=== PATIENT | female | born 1975 | race Caucasian/White ===

== ENCOUNTER 2019-12-14 10:54 | Inpatient (IN) | payer SELFPAY ==
[2019-12-14] VITALS (11 sets, daily range): BP systolic 101–123; BP diastolic 45–75; PULSE 76–111; RESP 12–20; TEMP 36.3–37.1; O2SAT 94–100
--- NOTE | ~2019-12-14 | XR_ITS ---
EXAMINATION: XR chest 1V portable DATE: 12/16/2019 18:48 INDICATION: Chest pain to the right of the sternum. TECHNIQUE: frontal view of the chest was obtained. COMPARISON: Chest radiograph dated 04/08/2019 FINDINGS: Calcite nodules in the right lower lung zone consistent with old granulomatous disease. Bandlike opac ity consistent with discoid atelectasis in the left lower lung zone. No pulmonary edema, pleural effu divya or pneumothorax. The cardiomediastinal silhouette is normal. Mild thoracic dextrocurvature. IMPRESSION: 1. Bandlike opacity in the left lower lung zone consistent with discoid atelectasis. Reviewed, dictated and finalized at location A. IMPRESSION: 1. Bandlike opacity in the left lower lung zone consistent with discoid atelect asis.
--- NOTE | 2019-12-14 11:51 | ED.WOUNDLAC ---
HPI - Wound/Laceration General Chief Complaint: Wound/Laceration Stated Complaint: abscess on breast Time Seen by Provider: 12/14/19 11:50 Source: patient Mode of arrival: EMS Limitations: no limitations History of Present Illness HPI narrative: Pt is a 44 y/o female who presents to the ED, via EMS, with c/o worsening pain to her rt breast abscess. She states that she was at [place] yesterday and she was Rx Clindamycin. Pt only had one dose of her Clindamycin this morning. She notes that her abscess has gotten bigger since 2 days ago. Pt took Aleve for her pain and she ate breakfast at 7AM this morning. She reports a subjective fever. Onset (ago): day(s) (2) Location: other (rt breast) Associated symptoms: other (subjective fever) Treatments prior to arrival: other (Aleve) Related Data Allergies Allergy/AdvReac Type Severity Reaction Status Date / Time bupropion Allergy Mild Agitated Verified 11/22/19 13:04 promethazine AdvReac Mild Agitated Verified 12/14/19 13:47 BUSPIRONE HCL Allergy Mild Agitated Uncoded 11/22/19 13:04 Review of Systems Review of Systems: All systems reviewed & are unremarkable except as noted in HPI and below Constitutional: Constitutional: Reports fever(s) (subjective) Integumentary/Breasts: Skin/Breast: Reports breast pain (rt breast abscess) PMFSH Past Medical History Medical History Anxiety Arthritis DM (diabetes mellitus) GERD (gastroesophageal reflux disease) H/O: HTN (hypertension) History of ovarian cyst IBS (irritable bowel syndrome) Surgical History Surgical History History of breast surgery History of dilation and curettage History of primary section x3 Social History Social History Smoking status: Current every day smoker Second hand tobacco smoke exposure: Yes Alcohol intake: never Gender identity (if verbalized by the patient): Female Exam Narrative: Exam Narrative: APPEARANCE: No acute distress, nontoxic, resting in bed EYES: EOMI HEENT: Normocephalic, atraumatic, OMM RESPIRATORY: No respiratory distress Clear to auscultation bilaterally with no rhonchi wheezing or rales. CARDIOVASCULAR: Regular rate and rhythm without murmurs rubs or gallops. ABDOMINAL: Soft, nontender, nondistended, no rebound or guarding MUSCULOSKELETAl: Moves all extremities. No clubbing, cyanosis or edema. NEURO: Awake and alert. Following commands, speech normal, no focal deficits SKIN:: Warm, dry. The right breast is diffusely swollen and erythematous around the area Lillian with firmness and fluctuance palpated no active drainage PSYCHIATRIC: Normal affect/mood, Course Course Emergency Course: Discussed with patient plan for OR in agreement at this time Consultations Consultation #1: Discussed case with Dr. Benson, the general surgeon. Will come to the ED and evaluate pt. Date: 12/14/19 Time: 12:15 Consultation #2: Discussed case with Dr. Benson the general surgeon. He saw pt in the ED bed. He will get pt to the OR today. Wants to start pt on Ancef 2g. Date: 12/14/19 Time: 13:39 Vital Signs Vital signs: Vital Signs Temperature 98.8 F 12/14/19 10:58 Pulse Rate 111 H 12/14/19 10:58 Respiratory Rate 18 12/14/19 10:58 Blood Pressure 114/61 12/14/19 10:58 Pulse Oximetry 100 12/14/19 10:58 Temperature 98.8 F 12/14/19 10:58 Pulse Rate 111 H 12/14/19 10:58 Respiratory Rate 18 12/14/19 10:58 Blood Pressure 114/61 12/14/19 10:58 Pulse Oximetry 100 12/14/19 10:58 MDM - Wound/Laceration Lab Data Result diagrams: 12/14/19 12:14 12/14/19 12:15 Labs: Lab Results 12/14/19 12/14/19 12/14/19 Range/Units 12:14 12:14 12:15 WBC 15.3 H (4.5-10.0) K/mm3 RBC 4.25 (4.2-5.4) M/mm3 Hgb 13.2 (12.0-15.0) g/dL Hct 38.7 (37.0-47.0) % MCV 91.1 (80-100) fl
[2019-12-14 12:21] LABS: Hematocrit 38.7 % (37.0-47.0); Hemoglobin 13.2 g/dL (12.0-15.0); Mean Corpuscular HGB Conc 34.1 g/dl (32-36); Mean Corpuscular Hemoglobin 31.1 pg (26-34); Mean Corpuscular Volume 91.1 fl (80-100); Mean Platelet Volume 9.6 fl (7.4-10.4); Platelet Count Result 334 k/mm3 (150-375); Red Blood Count 4.25 M/mm3 (4.2-5.4); Red Cell Distribution Width 12.4 % (11.5-14.5); White Blood Count 15.3 K/mm3 (4.5-10.0)
[2019-12-14 12:31] LABS: INR 0.9; Prothrombin Time 11.5 Seconds (11.1-14.7)
[2019-12-14] MEDS: LACTATED RINGERS 1,000 ML 999 ML IV CONT (12:31)
[2019-12-14 12:32] LABS: Partial Thromboplastin Time 30.2 SECONDS (22.3-36.8)
[2019-12-14 12:34] LABS: Alanine Aminotransferase 21 U/L (4-35); Albumin Level 4.3 g/dL (3.5-5.1); Alkaline Phosphatase 129 U/L (38-126); Aspartate Amino Transferase 26 U/L (14-36); Bilirubin,Total 0.2 mg/dL (0.2-1.3); Blood Urea Nitrogen 13 mg/dL (7-17); Calcium 9.5 mg/dL (8.4-10.2); Carbon Dioxide 22 mmol/L (22-30); Chloride 102 mmol/L (98-107); Estimated CRCL calculation 120 ml/min; Estimated Glomerular Filt Rate > 60; Glucose 86 mg/dL (65-105); Potassium 4.2 mmol/L (3.4-5.0); Sodium 135 mmol/L (137-145)
[2019-12-14 12:54] LABS: Atypical Lymphocytes Present; Basophils Absolute Manual 0.15 K/mm3 (0.0-0.1); Basophils Percent Manual 1 % (0-1); Eosinophils Percent Manual 2 % (0-4); Lymphocytes Absolute Manual 3.97 K/mm3 (1.1-4.5); Monocytes Absolute Manual 0.91 K/mm3 (0.1-0.90); Monocytes Percent Manual 6 % (3-9); Neutrophils Percent Manual 65 % (46-73); Platelet Estimate Adequate (Adequate); Total Cells Counted 100
[2019-12-14] MEDS: MORPHINE SULFATE 4 MG/ML INJ IV PUSH (12:54)
--- NOTE | 2019-12-14 14:20 | PM.IMHP ---
H&P: HPI History of Present Illness Chief complaint: abscess on breast Narrative: Nuzhat Pettit is a 44 year old female with a history of hypertension, Gerd, IBS, anxiety, and tobacco abuse, who presented to the ER for the second time in the past month for right breast pain. The patient reports having a right breast abscess just under a year ago and was under the care of Dr. Ortega as an outpatient until about 4-5 months ago. She reports first developing an abscess in the summer. She ultimately had an ultrasound-guided aspiration of the right breast abscess in June of 2019 here at [facility] radiology department. The patient then started to follow Dr. Ortega as an outpatient. She reports that she was scheduled for more follow-up about 4-5 months ago but was non-compliant due to insurance issues. She states that after the aspiration her breast spontaneously drained at home and started to improve after that. She then only noticed a lump in the right breast but the redness and pain was eliminated. This is how her breast has seemed up until about 3 weeks ago. She started having a fever, chills, nausea, and vomiting. She felt that her left breast was more swollen but did not have significant redness. She reports presenting to the ER about 3 weeks ago for evaluation of right breats pain and swelling. At that time, an ultrasound was performed of the right breast and showed a subareolar fluid collection of the right breast corresponding to the area of right breast pain which could reflect seroma or possibly uncomplicated abscess. BI-RADS category 2 finding. At that time, her WBC count was 13,000. Dr. Ortega was notified by the ED physician and she was sent home on 7 days of oral cephalexin and instructed to follow-up in the office with Dr. Ortega. The patient did not make the follow-up appointment again due to insurance. She then presented to [place] ER yesterday and it was recommended to her to go to a facility with a breast or general surgeon who could manage the breast, she refused at that time and was sent home with oral clindamycin and recommendations. Today, she states that the pain has worsened and is now severe in her right breast. She still feels she is having fevers and chills, and decided to present to the [facility] ED for further evaluation. Labs revealed a WBC count of 15,000 today and she is tachycardic. No documented fever but the patient states she has been taking Tylenol around the clock for a subjective fever. Denies taking her temperature at home. Our service was contacted for surgical evaluation of the right breast abscess. I am now seeing the patient in the ED. She reports pain at a 7/10 in the right breast after receiving pain medication. She denies nausea at this time. Reports having subjective fevers off and on for weeks. She reports stopping her antibiotic given to her from the ER in November due to intolerance with nausea and vomiting. She did take one dose of the clindamycin this morning. No other complaints at this time. Review of Systems Constitutional: Constitutional: Reports as per HPI, Reports chills, Denies excessive sweating, Denies fatigue, Reports fever(s) and Denies weakness Eyes: Eyes: Denies change in vision and Denies loss of vision ENT: Denies dysphagia, Denies dizziness, Denies dry mouth, Denies hearing loss and Denies lip swelling Cardiovascular: Cardiovascular: Denies chest pain, Denies syncope, Denies radiating jaw, neck or arm pain, Denies dyspnea and Denies dyspnea on exertion Respiratory: Respiratory: Denies cough, Denies dyspnea, Denies dyspnea on exertion and Denies wheezing Gastrointestinal: Gastrointestinal: Denies abdominal pain, Denies bloating, Denies change in bowel habits, Denies dysphagia, Denies diarrhea, Reports nausea (subsided) and Reports vomiting (subsided) Musculoskeletal: Musculoskeletal: Denies abnormal gait, Denies myalgias, Denies deformity, Denies joint swelling and Denies tingling Integumenta
--- NOTE | 2019-12-14 14:38 | WPDANESEPPF ---
Anes - Initial Pre Proc Eval Procedure: Operation Date: 12/14/19 15:00 Proposed Procedures p INCISION AND DRAINAGE RIGHT BREAST ABSCESS - Marcus Benson DO Date/Time: 12/14/19 14:38 Surgeon: Marcus Benson DO Pre Op Diagnosis: abscess on breast Patient Data Age: 44 Gender: F Height: 5 ft 7 in Weight: 95.2 kg Last Vital Signs Temp 37.1 C 12/14/19 10:58 Pulse 95 12/14/19 14:16 Resp 20 12/14/19 14:16 BP 123/75 12/14/19 14:16 Pulse Ox 100 12/14/19 14:16 Allergies Allergy/AdvReac Type Severity Reaction Status Date / Time bupropion Allergy Mild Agitated Verified 11/22/19 13:04 promethazine AdvReac Mild Agitated Verified 12/14/19 13:47 BUSPIRONE HCL Allergy Mild Agitated Uncoded 11/22/19 13:04 Home Medications Medication Instructions Recorded Confirmed Type cephalexin [Keflex] 500 mg PO QID #28 cap 11/22/19 Rx lisinopril-hydrochlorothiazide 1 tablet PO DAILY #30 tablet 11/22/19 Rx [Zestoretic] Laboratory Tests 12/14/19 12/14/19 12/14/19 12:14 12:14 12:15 WBC 15.3 K/mm3 H K/mm3 (4.5-10.0) RBC 4.25 M/mm3 M/mm3 (4.2-5.4) Hgb 13.2 g/dL g/dL (12.0-15.0) Hct 38.7 % % (37.0-47.0) MCV 91.1 fl fl (80-100) MCH 31.1 pg pg (26-34) MCHC 34.1 g/dl g/dl (32-36) RDW 12.4 % % (11.5-14.5) Plt Count 334 k/mm3 k/mm3 (150-375) MPV 9.6 fl fl (7.4-10.4) Immature Gran % (Auto) Not Reportable Neut % (Auto) Not Reportable Lymph % (Auto) Not Reportable Petroleum % (Auto) Not Reportable Eos % (Auto) Not Reportable Baso % (Auto) Not Reportable Lymph # (Auto) Not Reportable Petroleum # (Auto) Not Reportable Eos # (Auto) Not Reportable Baso # (Auto) Not Reportable Abs Immat Gran (auto) Not Reportable Absolute Neuts (auto) Not Reportable Absolute Nucleated RBC Not Reportable Total Counted 100 Neutrophils % (Manual) 65 % % (46-73) Lymphocytes % (Manual) 26.0 % % (18-44) Monocytes % (Manual) 6 % % (3-9) Eosinophils % (Manual) 2 % % (0-4) Basophils % (Manual) 1 % % (0-1) Nucleated RBC % Not Reportable Abs Lymphs (Manual) 3.97 K/mm3 K/mm3 (1.1-4.5) Abs Monocytes (Manual) 0.91 K/mm3 H K/mm3 (0.1-0.90) Absolute Eos (Manual) 0.30 K/mm3 K/mm3 (0.02-0.5) Abs Basophils (Manual) 0.15 K/mm3 H K/mm3 (0.0-0.1) Atypical Lymphocytes Present Platelet Estimate Adequate (Adequate) PT 11.5 Seconds Seconds (11.1-14.7) INR 0.9 APTT 30.2 SECONDS SECONDS (22.3-36.8) Sodium Potassium Chloride Carbon Dioxide BUN Creatinine Estim Creat Clear Calc Estimated GFR Glucose Lactic Acid 1.0 mmol/L mmol/L (0.7-2.1) Calcium Total Bilirubin AST ALT Alkaline Phosphatase Total Protein Albumin 12/14/19 12:15 WBC RBC Hgb Hct MCV MCH MCHC RDW Plt Count MPV Immature Gran % (Auto) Neut % (Auto) Lymph % (Auto) Petroleum % (Auto) Eos % (Auto) Baso % (Auto) Lymph # (Auto) Petroleum # (Auto) Eos # (Auto) Baso # (Auto) Abs Immat Gran (auto) Absolute Neuts (auto) Absolute Nucleated RBC Total Counted Neutrophils % (Manual) Lymphocytes % (Manual) Monocytes % (Manual) Eosinophils % (Manual) Basophils % (Manual) Nucleated RBC % Abs Lymphs (Manual) Abs Monocytes (Manual) Absolute Eos (Manual
[2019-12-14] MEDS: LACTATED RINGERS 1,000 ML 30 ML IV CONT ×2 (14:45→15:27)
[2019-12-14] MEDS: ceFAZolin 2 GM/D5W 50 ML 2 GM/50 ML BAG IVPB (14:54)
--- NOTE | 2019-12-14 15:31 | PM.PROC ---
Procedure Note - Detailed Date of procedure: 12/14/19 Pre-op diagnosis: right breast abscess Post-op diagnosis: same Procedure performed: 1. I&D right breast abscess 2. Right breast incisional biopsy Description of procedure: Procedure as well as risks, benefits, and alternatives were discussed with the patient. Written consent was obtained and placed in chart prior to procedure. Patient was brought back to surgical suite. She was placed supine on operating table. Time-out done to confirm patient and procedure. She was then intubated by the Anesthesia Department. Her right breast area was prepped and draped in sterile fashion using chlorhexidine prep. 0.5% bupivacaine with epinephrine was infiltrated locally around the area of fluctuance. A 3 cm curvilinear incision was made at the outer edge of the nipple areola complex in the right upper inner quadrant. The incision was carried down to the area of fluctuance. Purulence fluid was drained. A culture swab was taken for aerobic and anaerobic culture and sensitivity. The purulence fluid was completely drained and then the abscess cavity was probed for any loculations. The breast tissue along the abscess cavity was then biopsied using a pickup and curved Metzenbaum scissors. After taking several samples of tissue along the abscess wall, the cavity was then further inspected. Hemostasis appeared adequate and there was no further loculations or other abnormalities. The abscess cavity was then irrigated with sterile saline. Half-inch iodoform gauze was then packed within the abscess cavity. Fluffed gauze, ABD pad, and tape were then applied. The patient was then awakened from anesthesia, extubated, and transferred to recovery. Anesthesia: GETA and local ( 0.5% bupivacaine with epinephrine) Surgeon: Marcus Benson DO Estimated blood loss (mL): 5 Drains: No Packing: Yes ( 1/2 inch iodoform gauze) Pathology: yes ( right breast biopsy upper inner quadrant) Complications: No immediate complications Condition: stable Disposition: floor Findings: this is a 44-year-old woman who presented to the emergency department today with pain and swelling to the inner portion of her right breast over the past couple weeks. She has also been experiencing fevers. On exam she was found to have an area abscess and cellulitis along the upper inner quadrant of her right breast. Discussions were made with the patient about treatment options, and decision was made to proceed with urgent incision and drainage of the breast abscess. Incision and drainage of the right breast abscess was performed. The area of fluctuance appeared to be predominantly in the medial subareolar right breast area. A curvilinear incision was made at the outer edge of the nipple areola complex in the right upper outer quadrant. Approximately 6 oz of purulence fluid was drained from this area. Cultures were taken for aerobic and anaerobic culture and sensitivity. I then performed incisional biopsies of the surrounding breast tissue along the abscess wall to assess for any potential for malignancy. The abscess was then packed with half-inch iodoform gauze.
[2019-12-14] MEDS: BUPIVACAINE/EPINEPHRINE 0.5% 10 ML VIAL INFILTRATE (15:54)
--- NOTE | 2019-12-14 16:07 | SUR.PHASEI ---
1600 - no family available at this time for update
[2019-12-14] MEDS: IBUPROFEN 600 MG TABLET PO (21:30)
[2019-12-15 02:00] VITALS: BP 102/53; PULSE 87; RESP 18; TEMP 36.8; O2SAT 94
[2019-12-15 05:51] VITALS: BP 108/59; PULSE 82; RESP 18; TEMP 36.6; O2SAT 95
[2019-12-15 06:22] LABS: Hematocrit 39.2 % (37.0-47.0); Mean Corpuscular HGB Conc 33.2 g/dl (32-36); Mean Corpuscular Hemoglobin 30.7 pg (26-34); Mean Corpuscular Volume 92.5 fl (80-100); Platelet Count Result 356 k/mm3 (150-375); Red Blood Count 4.24 M/mm3 (4.2-5.4); Red Cell Distribution Width 12.4 % (11.5-14.5); White Blood Count 18.4 K/mm3 (4.5-10.0)
--- NOTE | 2019-12-15 07:52 | WPDANESPN ---
Anes - Prog Note Post-Op Date/Time: 12/15/19 07:52 Cardiovascular status: normal Respiratory status: normal Airway patency: baseline Mental status: baseline Post-Op hydration status: normal Vital Signs: Last Vital Signs Temp 36.6 C 12/15/19 05:51 Pulse 82 12/15/19 05:51 Resp 18 12/15/19 05:51 BP 108/59 L 12/15/19 05:51 Pulse Ox 95 12/15/19 05:51 I/O: Intake & Output 12/14/19 12/14/19 12/15/19 15:59 23:59 07:59 Intake Total 1050 890 550 Output Total 500 Balance 1050 890 50 Laboratory Tests 12/15/19 05:47 12/14/19 12:15 12/14/19 12/14/19 12/14/19 12:14 12:14 12:15 WBC 15.3 H RBC 4.25 Hgb 13.2 Hct 38.7 MCV 91.1 MCH 31.1 MCHC 34.1 RDW 12.4 Plt Count 334 MPV 9.6 Immature Gran % (Auto) Not Reportable Neut % (Auto) Not Reportable Lymph % (Auto) Not Reportable Thomas % (Auto) Not Reportable Eos % (Auto) Not Reportable Baso % (Auto) Not Reportable Lymph # (Auto) Not Reportable Thomas # (Auto) Not Reportable Eos # (Auto) Not Reportable Baso # (Auto) Not Reportable Abs Immat Gran (auto) Not Reportable Absolute Neuts (auto) Not Reportable Absolute Nucleated RBC Not Reportable Total Counted 100 Neutrophils % (Manual) 65 Lymphocytes % (Manual) 26.0 Monocytes % (Manual) 6 Eosinophils % (Manual) 2 Basophils % (Manual) 1 Nucleated RBC % Not Reportable Abs Lymphs (Manual) 3.97 Abs Monocytes (Manual) 0.91 H Absolute Eos (Manual) 0.30 Abs Basophils (Manual) 0.15 H Atypical Lymphocytes Present Platelet Estimate Adequate PT 11.5 INR 0.9 APTT 30.2 Sodium Potassium Chloride Carbon Dioxide BUN Creatinine Estim Creat Clear Calc Estimated GFR Glucose Lactic Acid 1.0 Calcium Total Bilirubin AST ALT Alkaline Phosphatase Total Protein Albumin 12/14/19 12/15/19 12:15 05:47 WBC 18.4 H RBC 4.24 Hgb 13.0 Hct 39.2 MCV 92.5 MCH 30.7 MCHC 33.2 RDW 12.4 Plt Count 356 MPV 10.0 Immature Gran % (Auto) Neut % (Auto) Lymph % (Auto) Thomas % (Auto) Eos % (Auto) Baso % (Auto) Lymph # (Auto) Thomas # (Auto) Eos # (Auto) Baso # (Auto) Abs Immat Gran (auto) Absolute Neuts (auto) Absolute Nucleated RBC Total Counted Neutrophils % (Manual) Lymphocytes % (Manual) Monocytes % (Manual) Eosinophils % (Manual) Basophils % (Manual) Nucleated RBC % Abs Lymphs (Manual) Abs Monocytes (Manual) Absolute Eos (Manual) Abs Basophils (Manual) Atypical Lymphocytes Platelet Estimate PT INR APTT Sodium 135 L Potassium 4.2 Chloride 102 Carbon Dioxide 22 BUN 13 Creatinine 0.60 L Estim Creat Clear Calc 120 Estimated GFR > 60 Glucose 86 Lactic Acid Calcium 9.5 Total Bilirubin 0.2 AST 26 ALT 21 Alkaline Phosphatase 129 H Total Protein 8.0 Albumin 4.3 Post-procedural complaints: none Patient Feedback: Patient satisfied with anesthetic care.
[2019-12-15] MEDS: hydroCHLOROthiazide 12.5 MG CAPSULE PO (08:25)
[2019-12-15] MEDS: lisinopriL 20 MG TABLET PO (08:25)
[2019-12-15 09:00] VITALS: BP 105/41; PULSE 81; RESP 18; TEMP 36.6; O2SAT 99
--- NOTE | 2019-12-15 12:03 | PM.PNGS ---
Progress Note: A&P Assessment and Plan (1) Abscess of breast, right: Code(s): N61.1 - Abscess of the breast and nipple Status: Acute Assessment and Plan: Patient doing well POD#1 but still having a lot of pain. Did require IV pain medication for dressing change today. Will keep patient today for pain control and hopefully discharge tomorrow if doing well. She will need daily dressing changes when going home and does not feel that she can do them herself. She is going to contact her mother and [id number] to see if either would be willing to help her with wound care daily on discharge. Continue IV antibiotics. Abscess cultures pending. Pathology from biopsy pending. (2) H/O: HTN (hypertension): Code(s): Z86.79 - Personal history of other diseases of the circulatory system Status: Acute (3) Tobacco abuse: Code(s): Z72.0 - Tobacco use Status: Acute Subjective Subjective Date/Time Seen: 12/15/19 11:45 Post Op day: 1 (I&D right breast abscess; right breast incisional biopsy) Patient reports: still having pain and tolerating a regular diet Interval history: Patient seen and examined. Reports right breast pain at a 7/10 and received oral pain medication about an hour ago. No other complaints. WBC 18,000 today. Afebrile. Review of Systems Review of Systems: All systems reviewed & are unremarkable except as noted in HPI and below Exam Const: General: no acute distress, alert and awake Nutritional Appearance: well nourished Orientation/consciousness: patient oriented x3 Skin: Other: Right breast abscess looks good today with improvement in overall erythema and induration. Packing changed with 1 iodoform packing. No purulent drainage noted. Neuro: General: moves all extremities Psych: Mental Status: mental status grossly normal Attitude: cooperative Objective Data Vital Signs Vital Signs: Vital Signs - 24 hr 12/14/19 14:16 12/14/19 14:47 12/14/19 15:27 Temperature 36.4 C 36.3 C L Pulse Rate 95 82 106 H Respiratory Rate 20 20 16 Blood Pressure 123/75 117/63 122/69 Pulse Oximetry 100 100 100 12/14/19 15:40 12/14/19 15:55 12/14/19 16:10 Temperature Pulse Rate 80 83 79 Respiratory Rate 12 12 12 Blood Pressure 106/53 L 111/54 L 101/54 L Pulse Oximetry 99 98 97 12/14/19 16:14 12/14/19 16:29 12/14/19 17:00 Temperature 36.7 C 36.7 C 36.7 C Pulse Rate 77 76 81 Respiratory Rate 16 16 18 Blood Pressure 110/58 L 109/45 L 110/56 L Pulse Oximetry 100 99 98 12/14/19 22:00 12/15/19 02:00 12/15/19 05:51 Temperature 36.8 C 36.8 C 36.6 C Pulse Rate 86 87 82 Respiratory Rate 16 18 18 Blood Pressure 104/51 L 102/53 L 108/59 L Pulse Oximetry 94 94 95 Intake/Output Intake/Output: Intake & Output 12/12/19 12/13/19 12/14/19 12/15/19 23:59 23:59 23:59 23:59 Intake Total 1940 550 Output Total 500 Balance 1940 50 Meds/Results Medications: Active Medications Generic Name Dose Route Start Last Admin Trade Name Freq PRN Reason Stop Dose Admin Hydrocodone Bitart/Acetaminophen 1 tab 12/14/19 16:14 Con[place]us 7.5-325 Mg PO Q4H PRN Pain Rated 7-10 Hydrocodone Bitart/Acetaminophen 1 tab 12/14/19 16:14 12/15/19 09:40 [place]us 5-325 Mg PO 1 tab Q4H PRN Administration Pain Rated 4-6 Hydrochlorothiazide 12.5 mg 12/15/19 09:00 12/15/19 08:25 Hydrochlorothiazide PO 12.5 mg QAM CARLITA Administration Hydromorphone HCl 0.5 mg 12/14/19 16:14 Dilaudid Inj IV PUSH Q2H PRN Pain Rated 4-6 Hydromorphone HCl 1 mg 12/14/19 16:14 Dilaudid Inj IV PUSH Q2H PRN Pain Rated 7-10 Cefazolin Sodium 1 gm in 50 mls @ 100 mls/hr 12/14/19 22:00 12/15/19 06:10 Ancef 1 Gm/D5w 50 Ml Pm IVPB Infused Q8HR CARLITA Infusion Ibuprofen 600 mg 12/14/19 21:21 12/14/19 21:30 Motrin PO 600 mg Q6H PRN Administration Pain Rated 1-3 Lisinopril 20 mg 12/15/19 09:00 12/15/19 08:25 Prinivil PO 20
[2019-12-15] MEDS: HYDROMORPHONE HCL 1 MG/ML INJ IV PUSH (12:07)
[2019-12-15 14:00] VITALS: BP 104/55; PULSE 85; RESP 18; O2SAT 98
[2019-12-15 15:27] VITALS: BMI 32.8
[2019-12-15] MEDS: IBUPROFEN 600 MG TABLET PO (20:09)
[2019-12-15 21:59] VITALS: BP 112/41; PULSE 66; RESP 16; TEMP 36.9; O2SAT 98
[2019-12-16] MEDS: IBUPROFEN 600 MG TABLET PO ×2 (02:09→20:39)
[2019-12-16 06:00] VITALS: BP 108/46; PULSE 80; RESP 18; TEMP 36.5; O2SAT 96
[2019-12-16 06:25] LABS: Hematocrit 38.9 % (37.0-47.0); Hemoglobin 12.8 g/dL (12.0-15.0); Mean Corpuscular HGB Conc 32.9 g/dl (32-36); Mean Corpuscular Hemoglobin 30.7 pg (26-34); Mean Corpuscular Volume 93.3 fl (80-100); Mean Platelet Volume 9.9 fl (7.4-10.4); Platelet Count Result 304 k/mm3 (150-375); Red Blood Count 4.17 M/mm3 (4.2-5.4); Red Cell Distribution Width 12.7 % (11.5-14.5); White Blood Count 12.3 K/mm3 (4.5-10.0)
[2019-12-16] MEDS: lisinopriL 20 MG TABLET PO (08:20)
[2019-12-16] MEDS: hydroCHLOROthiazide 12.5 MG CAPSULE PO (08:20)
--- NOTE | 2019-12-16 08:21 | PC.NURSE ---
Patient does not want the flu shot
--- NOTE | 2019-12-16 13:05 | PM.PNGS ---
Progress Note: A&P Assessment and Plan (1) Abscess of breast, right: Code(s): N61.1 - Abscess of the breast and nipple Status: Acute Assessment and Plan: Patient doing well POD#2. Still working on pain control, specifically at dressing changes. Awaiting final abscess culture results. Continue IV antibiotics for today. Pathology from right breast biopsy shows benign mammary tissue with fat necrosis and abscess, negative for malignancy. Pathology was discussed in detail with the patient. The patient's mom agreed to have her stay at her house for a few days after discharge and help with dressing changes. Will keep the patient overnight and continue IV antibiotics, await culture results, and work on pain control. (2) H/O: HTN (hypertension): Code(s): Z86.79 - Personal history of other diseases of the circulatory system Status: Acute (3) Tobacco abuse: Code(s): Z72.0 - Tobacco use Status: Acute Subjective Subjective Date/Time Seen: 12/16/19 12:05 Post Op day: 2 (I&D right breast abscess; right breast incisional biopsy) Patient reports: no new complaints, still having pain and tolerating a regular diet Interval history: Patient seen and examined. Reports pain is about the same as yesterday and still requiring oral narcotics throughout the day and IV pain medication for dressing changes. Tolerating a diet. Reports the pain is still localized on the right side of her chest and right breast. Denies any other complaints at this time. Preliminary results of the abscess culture shows growth of peptostreptococcus species. Blood cultures NGTD. Patient remains afebrile. Right breast biopsy pathology showed benign mammary tissue with fat necrosis and abscess, negative for malignancy. Review of Systems Review of Systems: All systems reviewed & are unremarkable except as noted in HPI and below Constitutional: Constitutional: Denies chills and Denies fever(s) Gastrointestinal: Gastrointestinal: Reports no additional gastrointestinal complaints, Denies bloating, Denies nausea and Denies vomiting Exam Const: General: comfortable, no acute distress, alert and awake Skin: General skin exam: normal color Rashes: no rashes Other: Right breast abscess healing as expected with decrease in overall induration and no remaining erythema. Packing changed with 1 iodoform packing. No purulent drainage noted. Extrem: General: normal to inspection, full ROM and no edema Psych: Affect: normal affect Attitude: cooperative Thought process: Normal thought process present Objective Data Vital Signs Vital Signs: Vital Signs - 24 hr 12/15/19 14:00 12/15/19 21:59 12/16/19 06:00 Temperature 36.9 C 36.5 C Pulse Rate 85 66 80 Respiratory Rate 18 16 18 Blood Pressure 104/55 L 112/41 L 108/46 L Pulse Oximetry 98 98 96 Intake/Output Intake/Output: Intake & Output 12/13/19 12/14/19 12/15/19 12/16/19 23:59 23:59 23:59 23:59 Intake Total 1940 1290 1100 Output Total 1000 400 Balance 1940 290 700 Meds/Results Medications: Active Medications Generic Name Dose Route Start Last Admin Trade Name Freq PRN Reason Stop Dose Admin Hydrocodone Bitart/Acetaminophen 1 tab 12/14/19 16:14 [place] 7.5-325 Mg PO Q4H PRN Pain Rated 7-10 Hydrocodone Bitart/Acetaminophen 1 tab 12/14/19 16:14 12/16/19 09:49 [place] 5-325 Mg PO 1 tab Q4H PRN Administration Pain Rated 4-6 Hydrochlorothiazide 12.5 mg 12/15/19 09:00 12/16/19 08:20 Hydrochlorothiazide PO 12.5 mg QAM CARLITA Administration Hydromorphone HCl 0.5 mg 12/14/19 16:14 Dilaudid Inj IV PUSH Q2H PRN Pain Rated 4-6 Hydromorphone HCl 1 mg 12/14/19 16:14 12/15/19 12:07 Dilaudid Inj IV PUSH 1 mg Q2H PRN Administration Pain Rated 7-10 Cefazolin Sodium 1 gm in 50 mls @ 100 mls/hr 12/14/19 22:00 12/16/19 06:35 Ancef 1 Gm/D5w 50 Ml Pm IVPB Infused Q8HR CARLITA Infusion Ibuprofen
[2019-12-16] MEDS: HYDROMORPHONE HCL 1 MG/ML INJ IV PUSH (13:29)
[2019-12-16 14:29] VITALS: BP 110/61; PULSE 73; RESP 18; TEMP 36.2; O2SAT 96
--- NOTE | 2019-12-16 18:35 | ECG_ITS ---
Measurements Intervals [place] Rate: 69 P: 28 DC: 172 QRS: 31 QRSD: 93 T: 44 QT: 375 QTc: 404 Interpretive Statements SINUS RHYTHM BASELINE ARTIFACT- V5 NORMAL ECG Electronically Signed On 12-16-2019 19:48:57 ALUMINUM POOL INSTALLER by [place] Marcus D.O.
[2019-12-16 18:42] VITALS: BP 99/53; PULSE 68; RESP 23; TEMP 36.7; O2SAT 98
[2019-12-16 19:10] LABS: Alveolar/Arterial O2 Gradient 26.5 mmHg; Base Excess ABG 0.2 mEq/l (+/-2.0); Carboxyhemoglobin 0.7 % THb (0-2.0); Fractional Inspired Oxygen 21 %; HCO3 ABG 24.1 mEq/l (22.0-26.0); Methemoglobin ABG 0.3 %THb (0-1.5); Oxygen Content ABG 18.2 %vol (16.0-22.0); Oxygen Saturation ABG 96.1 % (95.0-100.0); Oxyhemoglobin 94.5 % THb (90.0-100.0); PCO2 ABG 36.7 mmHg (35.0-45.0); PO2 ABG 79.3 mmHg (80.0-100.0); PO2 FiO2 Ratio Arterial Blood 3.78 %; Reduced Hemoglobin 4.5 %THb (0-5.0); Site Drawn RIGHT RADIAL; Total Hemoglobin 13.7 g/dL (12.0-18.0); pH ABG 7.435 (7.350-7.450)
[2019-12-16 19:11] LABS: Device ROOM AIR; Modified Allen's Test Pass
[2019-12-16 19:21] LABS: Troponin I < 0.012 ng/mL (0.000-0.034)
[2019-12-16 20:00] VITALS: PULSE 71
[2019-12-16 20:03] VITALS: BP 96/52; PULSE 69; RESP 18; TEMP 36.7; O2SAT 95
[2019-12-16 21:53] VITALS: BP 104/48; PULSE 67; RESP 16; TEMP 36.7; O2SAT 99
[2019-12-17] VITALS: PULSE 75
--- NOTE | 2019-12-17 02:28 | PM.IMCN ---
Assessment and Plan Assessment and plan (1) Chest pain: Code(s): R07.9 - Chest pain, unspecified Status: Acute Assessment and Plan: Chest pain does not seem to be cardiac in origin and is now resolved. Likely musculoskeletal. EKG was unremarkable. Initial troponin was negative. We will monitor for any further chest pain and treat w/ nitroglycerin as needed. Telemetry. Check troponin in am. Consider Cardiology consultation if the patient's troponin rises or if she develops any further chest pain. (2) Abscess of breast, right: Code(s): N61.1 - Abscess of the breast and nipple Status: Acute Assessment and Plan: Currently on Ancef IV. Continue general surgery recommendations. (3) H/O: HTN (hypertension): Code(s): Z86.79 - Personal history of other diseases of the circulatory system Status: Acute Assessment and Plan: stable. Monitor blood pressure. Continue lisinopril/HCTZ. HPI Data of Consult Consult date: 12/17/19 Requesting Physician: Marcus Benson DO Primary Care Provider: METHODS ENGINEER PHYSICIAN Consult Narrative Narrative: Thank you for consulting us to see this 44 year old female to evaluate her for acute chest pain that started this evening. The patient is currently being treated by the general surgery service for a right breast abscess which was incised and drained. On my arrival to bedside the patient currently no longer has any further chest pain. She described her chest pain tonight as midsternal and also right sided. Her chest pain didn't radiate anywhere. She did not have any associated symptoms. She described her chest pain as feeling like a pulling . She has no previous history of coronary artery disease. She does admit to me that she also feels anxious tonight. Her right sided chest wall pain from her wound is currently also controlled. She denies any other symptoms such as fever, cough, shortness of breath, abdominal pain, nausea, vomiting, dysuria or other symptoms. Review of Systems Review of Systems: All systems reviewed & are unremarkable except as noted in HPI and below PMFSH Past Medical History Medical History Anxiety Arthritis GERD (gastroesophageal reflux disease) H/O: HTN (hypertension) History of ovarian cyst Hx gestational diabetes IBS (irritable bowel syndrome) Surgical History Surgical History History of breast surgery June 2019 - Ultrasound guided aspiration of right breast abscess. History of dilation and curettage History of primary section x3 Family History Family History Father Diabetes mellitus Hypertension Mother Hypertension Social History Social History Social History: Currently under financial burden with low income and no insurance. Smoking packs per day: 1.5 Smoking cigarettes per day: 30.0 Years smoked: 7 Smoking pack-years: 10.50 Smoking status: Current every day smoker Tobacco type: cigarettes Second hand tobacco smoke exposure: Yes Additional smoking assessment comments: Using the gum to help with smoking cessation. Alcohol intake: never Alcohol use details: Occasional/social. Substance use: never Living arrangements: with family Additional living arrangements comments: With her cousin who has Autism. Occupation/Education: occupation Additional occupation/education comments: Hairstylist. Gender identity (if verbalized by the patient): Female Spiritual care concerns: No Agree to blood products: Yes Meds Home Medications and Allergies Home Medications Medication Instructions Recorded Confirmed Type lisinopril-hydrochlorothiazide 1 tablet PO DAILY #30 tablet 11/22/19 12/14/19 Rx [Zestoretic] Allergies
[2019-12-17 04:00] VITALS: PULSE 72
[2019-12-17 05:58] VITALS: BP 109/52; PULSE 74; RESP 16; TEMP 36.4; O2SAT 97
[2019-12-17 06:58] LABS: Troponin I < 0.012 ng/mL (0.000-0.034)
[2019-12-17 08:00] VITALS: PULSE 78
[2019-12-17] MEDS: hydroCHLOROthiazide 12.5 MG CAPSULE PO (08:52)
[2019-12-17] MEDS: lisinopriL 20 MG TABLET PO (08:52)
--- NOTE | 2019-12-17 11:47 | PM.DS ---
DS: Diagnosis Admitting Diagnosis Admitting Diagnosis: Abscess of the right breast Discharge Diagnosis (1) Abscess of breast, right: Code(s): N61.1 - Abscess of the breast and nipple Status: Acute Assessment and Plan: Will have patient continue clindamycin 300 mg Q 6 hours, she already has a prescription for this Continue daily packing changes, and will arrange for patient to follow up in wound clinic weekly She was instructed to call Wound Clinic or my office for any worsening signs. (2) H/O: HTN (hypertension): Code(s): Z86.79 - Personal history of other diseases of the circulatory system Status: Acute (3) Tobacco abuse: Code(s): Z72.0 - Tobacco use Status: Acute (4) Chest pain: Code(s): R07.9 - Chest pain, unspecified Status: Acute DS: Summary Hospital Course Reason for hospitalization: Right breast abscess Hospital Course: This is a 44-year-old woman who presented to the emergency department with pain, swelling, and redness to her right breast around the nipple areola complex. She was found to have a significant amount of fluctuance along the medial side of the right breast. She was taken urgently for incision and drainage of right breast abscess on 12/14/2019. She was admitted for further wound care, IV antibiotics, and pain control. Her white blood count remained elevated the 1st 2 days, but was gradually decreasing towards normal. She remained afebrile. Packing changes were painful the 1st 2 days, but pack change was well tolerated on day 3. Wound cultures grew peptostreptococcus, sensitivities not available as of discharge. Patient was discharged on postop day 3. Status at Discharge Functional status at discharge: independent ambulation Overall status at discharge: patient is progressing back to baseline Time Spent with Patient Time attestation: Total time spent providing and/or coordinating discharge services: Time spent: Less than 30 minutes Exam Chest: Chest/axillae images: 1. Right breast abscess wound with improved erythema and induration. Minimal serosanguineous drainage. DS: Data Data Completed and Pending Completed studies during hospitalization: Pending at discharge 12/14/19 15:17 Surgical [PTH] Routine Labs on day of discharge: Labs from last 24 hours 12/17/19 12/16/19 12/16/19 06:13 18:53 18:44 Puncture Site Right radial ABG pH 7.435 ABG pCO2 36.7 ABG pO2 79.3 L ABG PO2/FiO2 Ratio 3.78 ABG HCO3 24.1 ABG O2 Saturation 96.1 ABG O2 Content 18.2 ABG Base Excess 0.2 A-a Gradient 26.5 Oxyhemoglobin 94.5 Carboxyhemoglobin 0.7 Methemoglobin 0.3 Reduced Hemoglobin 4.5 Total Hemoglobin 13.7 O2 Delivery Device Room air O2 Liters/Min Not Reportable FiO2 21 Troponin I < 0.012 < 0.012 Preliminary micro results at discharge 12/14/19 15:15 Anaerobic Culture - Preliminary Abscess Peptostreptococcus species 12/14/19 12:37 Blood Culture - Preliminary Blood 12/14/19 12:37 Blood Culture - Preliminary Blood Discharge Plan Discharge Attending physician on discharge: Marcus Benson Consulting providers: Aliyah Sheldon Discharging Clinician: Marcus Benson Patient Disposition: Home, Self-Care Activity: may shower Diet: as tolerated Wound Care Instructions: follow printed instructions, remove dressing to shower and change dressing daily Discharge Instructions: Patient instructed to change packing with half-inch iodoform gauze daily. May remove packing prior to shower, shower as normal with a good antibacterial soap, and then repack after shower. Call office with increasing swelling, redness, drainage, or other concerns with wound. Patient Instructions: How to Stop Smoking (DC), Pain Management (DC), Abscess Incision and Drainage (DC), Antibiotic Form Stand Alone Forms: General Discharge Information Follow-up/Referrals
== END 2019-12-17 13:15 | disposition home or self-care (01) | DRG 363 ==
LOC: ANHED 13:11 → ANHSURGERY 13:46 → ANH3MEDSUR 16:24
PROVIDERS: Family Medicine; Nurse Practitioner Family; Surgery; Admitting Provider Surgery; Emergency Provider Emergency Medicine; Visit Provider Surgery
PROC: 0H9T0ZZ Drainage of Right Breast, Open Approach (ICD-10-PCS; principal; 2019-12-14 15:00)
DX: N61.1 Abscess of the breast and nipple (principal); I10 Essential (primary) hypertension; K21.9 Gastro-esophageal reflux disease without esophagitis; K58.9 Irritable bowel syndrome, unspecified; F41.9 Anxiety disorder, unspecified; F17.210 Nicotine dependence, cigarettes, uncomplicated; E11.9 Type 2 diabetes mellitus without complications; M19.90 Unspecified osteoarthritis, unspecified site; E66.9 Obesity, unspecified; Z68.32 Body mass index [BMI] 32.0-32.9, adult
CPT/HCPCS: 36415; 36600; 71045; 80053; 81025; 82375; 82805; 83050; 83605; 84484; 85025; 85027; 85610; 85730; 87040; 87070; 87075; 87076; 87205; 88305; 93005; 96361; 96365; 96375; 99285; A9270; G0378; G0379; J0330; J0690; J1170; J2250; J2270; J2405; J2704; J3010; J7120

== ENCOUNTER 2022-09-20 21:06 | Emergency (ER) | payer MEDICAID, SELFPAY ==
--- NOTE | ~2022-09-20 | XR_ITS ---
EXAMINATION: XR tibia fibula RT 2V DATE: 09/20/2022 22:50 INDICATION: Right rodriguez pain. Fall. TECHNIQUE: 2 views of right tibia and fibula were obtained. COMPARISON: None. FINDINGS: Bone alignment is normal. No fracture. There is mild right knee osteoarthritis. IMPRESSION: 1. Mild right knee osteoarthritis. Reviewed, dictated and finalized at location A. TICE MANAGER
[2022-09-20 21:41] VITALS: BP 150/81; PULSE 84; RESP 18; TEMP 36.6; O2SAT 100
--- NOTE | 2022-09-20 22:40 | ED.FALL ---
HPI - Fall General Chief Complaint: Fall Stated Complaint: RIGHT LOWER LEG INJURY Time Seen by Provider: 09/20/22 22:34 History of Present Illness HPI Narrative: 46-year-old female presents to the emergency room for evaluation of right rodriguez pain. Patient states that she stepped into a manhole when attempting to get into her vehicle, scraping her rodriguez. Patient states that her foot got stuck in the manhole and had difficulty extricating herself. Following the injury patient noted significant swelling and pain to the right rodriguez. Denies knee or ankle pain. Patient states that she was ambulatory initially following the injury but can no longer place weight on her leg. Related Data Allergies Allergy/AdvReac Type Severity Reaction Status Date / Time buspirone AdvReac Intermediate Headache Verified 04/22/20 10:32 bupropion AdvReac Mild Agitated Verified 04/22/20 10:32 cephalexin [From Keflex] AdvReac Mild Other Verified 04/22/20 10:32 promethazine AdvReac Mild Agitated Verified 04/22/20 10:32 Review of Systems Review of Systems: CONSTITUTIONAL: Denies fever, chills, or sweats. EYES: Denies visual changes, redness, or discharge. ENT: Denies rhinorrhea, congestion, sore throat, or otalgia. CARDIOVASCULAR: Denies chest pain, palpitations, or edema. RESPIRATORY: Denies cough or dyspnea. GASTROINTESTINAL: Denies abdominal pain, nausea, vomiting, or diarrhea. GENITOURINARY: Denies dysuria or hematuria. SKIN: Denies rash or itching. MUSCULOSKELETAL: Reports right rodriguez pain NEUROLOGIC: Denies headache, numbness, dizziness, or weakness. PSYCHIATRIC: Denies anxiety or depression. [facility] Past Medical History Medical History (Updated 09/20/22 @ 22:58 by Yan Hess APRN) Anxiety Arthritis GERD (gastroesophageal reflux disease) H/O: HTN (hypertension) History of ovarian cyst Hx gestational diabetes IBS (irritable bowel syndrome) Surgical History Surgical History History of breast surgery June 2019 - Ultrasound guided aspiration of right breast abscess. History of dilation and curettage History of primary section x3 Family History Family History Father Diabetes mellitus Hypertension Mother Hypertension Social History Social History Social History: Currently under financial burden with low income and no insurance. Smoking packs per day: 1.5 Smoking cigarettes per day: 30.0 Years smoked: 7 Smoking pack-years: 10.50 Smoking status: Current every day smoker Tobacco type: cigarettes Second hand tobacco smoke exposure: Yes Additional smoking assessment comments: Using the gum to help with smoking cessation. Alcohol intake: never Alcohol use details: Occasional/social. Substance use: never Additional living arrangements comments: With her cousin who has Autism. Additional occupation/education comments: [employer]. Gender identity (if verbalized by the patient): Female Spiritual care concerns: No Agree to blood products: Yes Exam Narrative: GENERAL: Well-appearing, well-nourished, no physical limitations, and in no acute distress. HEAD: Normocephalic, atraumatic. EYES: Conjunctivae normal, PERRLA and EOMI. CHEST: Clear to auscultation. No respiratory distress. No wheezes rales or rhonchi. HEART: Regular rate and rhythm. No murmur heard. Normal peripheral pulses. EXTREMITIES: RLE: +TTP with STS to mid shaft of tibia, overlying abrasion. No tenderness to knee or ankle. SKIN: Warm, dry, no rash. No noted wounds NEURO: No focal deficits. Alert and oriented x3. MAEW. CN's II-XI intact bilaterally, normal gait PSYCH: Cooperative. Normal mood and affect. Course Vital Signs Vital signs: Vital Signs Temperature 36.6 C 09/20/22 21:41 Pulse Rate 84 09/20/22 21:41 Respiratory Rate 18 09/20/22 21:41 Blood
[2022-09-20] MEDS: HYDROcodone/acetaminophen (*CRX) 5-325 MG TABLET 1 TAB PO (23:39)
== END 2022-09-20 23:46 | disposition home or self-care (01) ==
LOC: ANHED 23:16
PROVIDERS: Emergency Provider Nurse Practitioner Family
DX: S80.11XA Contusion of right lower leg, initial encounter (principal); K21.9 Gastro-esophageal reflux disease without esophagitis; K58.9 Irritable bowel syndrome, unspecified; M19.90 Unspecified osteoarthritis, unspecified site; F41.9 Anxiety disorder, unspecified; F17.210 Nicotine dependence, cigarettes, uncomplicated; W17.1XXA Fall into storm drain or manhole, initial encounter
CPT/HCPCS: 73590; 99283; A9270

== ENCOUNTER 2022-10-08 12:58 | Observation (INO) | payer MEDICAID, SELFPAY ==
--- NOTE | ~2022-10-08 | US_ITS ---
EXAMINATION:US venous doppler LE RT INDICATION:Leg swelling TECHNIQUE: Multiple grayscale, color flow and Doppler images of the right lower extremity deep venous systems were obtained and reviewed. COMPARISON:No prior studies for comparison. FINDINGS: The common femoral, superficial femoral veins demonstrate normal respiratory variation, aug mentation and compressibility. There is a partially occlusive deep venous thrombosis involving the ri ght popliteal vein. Color flow is also seen within the posterior tibial, peroneal, greater saphenous and profunda veins. IMPRESSION: 1: Partially occlusive DVT of the right popliteal vein. Reviewed, dictated and finalized at location A. NESS TECHNOLOGY TEACHER
[2022-10-08 14:03] VITALS: BP 148/79; PULSE 85; RESP 16; TEMP 37.2; O2SAT 99
[2022-10-08 16:39] LABS: Basophils Absolute Auto 0.1 K/mm3 (0.0-0.1); Basophils Percent Auto 0.8 % (0.2-1.2); Eosinophils Absolute Auto 0.3 K/mm3 (0-0.3); Eosinophils Percent Auto 3.1 % (0-4.4); Hematocrit 41.3 % (37.0-47.0); Immature Granulocyte Absolute 0.03 K/mm3 (0.00-0.031); Immature Granulocyte Percent A 0.3 % (0-0.5); Lymphocytes Absolute Auto 3.39 K/mm3 (0.9-3.2); Mean Corpuscular HGB Conc 33.9 g/dl (32-36); Mean Corpuscular Hemoglobin 31.4 pg (26-34); Mean Corpuscular Volume 92.6 fl (80-100); Mean Platelet Volume 9.4 fl (7.4-10.4); Monocytes Absolute Auto 0.8 K/mm3 (0.1-0.6); Monocytes Percent Auto 8.1 % (2.6-8.5); Neutrophils Absolute Auto 5.1 K/mm3 (1.3-6.7); Neutrophils Percent Auto 52.7 % (45.5-73.1); Platelet Count Result 319 k/mm3 (150-375); Red Blood Count 4.46 M/mm3 (4.2-5.4); Red Cell Distribution Width 12.9 % (11.5-14.5); White Blood Count 9.7 K/mm3 (4.5-10.0)
[2022-10-08 16:49] LABS: Alanine Aminotransferase 26 U/L (6-35); Albumin Level 4.2 g/dL (3.5-5.1); Alkaline Phosphatase 129 U/L (38-126); Anion Gap 11 mmol/L (8-16); Aspartate Amino Transferase 42 U/L (14-36); Bilirubin,Total 0.3 mg/dL (0.2-1.3); Blood Urea Nitrogen 12 mg/dL (7-17); Calcium 9.5 mg/dL (8.4-10.2); Carbon Dioxide 25 mmol/L (22-30); Chloride 103 mmol/L (98-107); Estimated CRCL calculation 103 ml/min; Estimated Glomerular Filt Rate > 60; Glucose 82 mg/dL (65-110); Potassium 4.2 mmol/L (3.4-5.0); Sodium 139 mmol/L (137-145)
[2022-10-08 16:53] LABS: Prothrombin Time 12.7 Seconds (11.1-14.7)
--- NOTE | 2022-10-08 17:42 | ED.GENADULT ---
HPI - General Adult General Chief complaint: Fall Stated complaint: FALL 2 WEEKS AGO Time Seen by Provider: 10/08/22 14:36 Source: patient Mode of arrival: ambulatory History of Present Illness HPI narrative: 47-year-old otherwise healthy here with complaints of right leg pain, swelling and numbness to her feet for past few days. Patient states that she fell in a manhole at work about 2 weeks ago scraped her rodriguez. Which she states is healed up however she has more swelling and swelling in the ankle. Onset (ago): day(s) (3) Radiation: non-radiation Severity: moderate Quality: aching Pain Consistency: constant Relieving factors: none Exacerbating factors: none Associated symptoms: denies other symptoms Related Data Home Medications Medication Instructions Recorded Confirmed No Home Medications 10/08/22 Allergies Allergy/AdvReac Type Severity Reaction Status Date / Time latex Allergy Rash Verified 10/08/22 14:42 buspirone AdvReac Intermediate Headache Verified 10/08/22 14:42 bupropion AdvReac Mild Agitated Verified 10/08/22 14:42 cephalexin [From Keflex] AdvReac Mild Other Verified 10/08/22 14:42 promethazine AdvReac Mild Agitated Verified 10/08/22 14:42 Review of Systems Review of Systems: All systems reviewed & are unremarkable except as noted in HPI and below Constitutional: Constitutional: Reports no additional constitutional complaints Eyes: Eyes: Reports no additional eye complaints ENT: Reports system reviewed and no additional complaints, except as documented Cardiovascular: Cardiovascular: Reports no additional cardiovascular complaints Respiratory: Respiratory: Reports no additional respiratory complaints Gastrointestinal: Gastrointestinal: Reports no additional gastrointestinal complaints Musculoskeletal: Musculoskeletal: Reports as per HPI Integumentary/Breasts: Skin/Breast: Reports system reviewed and no additional complaints, except as docu PMFSH Past Medical History Medical History Anxiety Arthritis GERD (gastroesophageal reflux disease) H/O: HTN (hypertension) History of ovarian cyst Hx gestational diabetes IBS (irritable bowel syndrome) Surgical History Surgical History History of breast surgery June 2019 - Ultrasound guided aspiration of right breast abscess. History of dilation and curettage History of primary section x3 Family History Family History Father Diabetes mellitus Hypertension Mother Hypertension Social History Social History (Updated 10/08/22 @ 18:17 by Cindy Matthews NP) Social History: Currently under financial burden with low income and no insurance. 3 c fantastic sty divorc Smoking packs per day: 1.5 Smoking cigarettes per day: 30.0 Years smoked: 7 Smoking pack-years: 10.50 Smoking status: Current every day smoker Tobacco type: cigarettes Second hand tobacco smoke exposure: Yes Additional smoking assessment comments: Using the gum to help with smoking cessation. Alcohol intake: never Alcohol use details: Occasional/social. Substance use: never Additional living arrangements comments: With her cousin who has Autism. Additional occupation/education comments: [employer]. Gender identity (if verbalized by the patient): Female Spiritual care concerns: No Agree to blood products: Yes Exam Narrative: GENERAL: Well-appearing, well-nourished, and in no acute distress. HEAD: Normocephalic, atraumatic. EYES: PERRLA and EOMI. NECK: Supple. CHEST: Clear to auscultation. No respiratory distress. HEART: Regular rate and rhythm. No murmur heard. Normal peripheral pulses. ABDOMEN: Soft, nontender, nondistended, normal active bowel sounds. EXTREMITIES: Normal range of motion. Examination of the right leg shows a scab on the strength mild soft t
[2022-10-08] MEDS: ENOXAPARIN 100 MG/ML SYRINGE SUB-Q (17:49)
--- NOTE | 2022-10-08 18:13 | PM.IMHP ---
H&P: HPI History of Present Illness Date/Time: 10/08/22 18:13 Chief Complaint: Right leg pain Narrative: This is a 47-year-old female patient who came to the emergency room with complaints of right leg pain. She has swelling redness and numbness to her right foot for the last few days. Patient stated that she stepped in to a that was for a restaurant grease Pit about 2 weeks ago which she scraped both of her shins. Venous Doppler the right lower extremity was read as partially occlusive DVT of the right popliteal vein. The patient was started on subcu Lovenox. Patient is being admitted for observation status on 09/30/2022 Review of Systems Review of Systems: See HPI All systems reviewed & are unremarkable except as noted in HPI and below Constitutional: Constitutional: Reports as per HPI and Reports no additional constitutional complaints Eyes: Eyes: Reports as per HPI and Reports no additional eye complaints ENT: Reports system reviewed and no additional complaints, except as documented and Reports Normal hearing present Cardiovascular: Cardiovascular: Reports no additional cardiovascular complaints Respiratory: Respiratory: Reports no additional respiratory complaints and Reports no additional respiratory complaints Gastrointestinal: Gastrointestinal: Reports as per HPI and Reports no additional gastrointestinal complaints Musculoskeletal: Musculoskeletal: Reports no additional musculoskeletal complaints Integumentary/Breasts: Skin/Breast: Reports system reviewed and no additional complaints, except as docu and Reports as per HPI Neurologic: Reports system reviewed and no additional complaints, except as documented, Reports as per HPI and Reports Normal hearing present Psychiatric: Psychiatric: Reports no additional psychiatric complaints and Reports as per HPI Endocrine: Endocrine: Reports no additional endocrine complaints Hematologic/Lymphatic: Hematologic/Lymphatic: Reports no additional hematologic/lymphatic complaints Allergic/Immunologic: Allergic/Immunologic: Reports no additional allergic/immunologic complaints [facility] Past Medical History Medical History (Updated 10/08/22 @ 23:08 by Cindy Matthews NP) Abscess of breast, right Anxiety Arthritis Encounter for surgical aftercare following surgery on the skin and subcutaneous tissue GERD (gastroesophageal reflux disease) H/O: HTN (hypertension) History of ovarian cyst Hx gestational diabetes IBS (irritable bowel syndrome) Surgical History Surgical History History of breast surgery June 2019 - Ultrasound guided aspiration of right breast abscess. History of dilation and curettage History of primary section x3 Family History Family History Father Diabetes mellitus Hypertension Mother Hypertension Social History Social History (Updated 10/08/22 @ 23:01 by Cindy Matthews NP) Social History: The patient is and she has 3 children. Currently under financial burden with low income and no insurance. 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 She is a former smoker. She drinks socially. No marijuana or illicit drugs. She does not have any power electrical maintenance man Code status full code Smoking packs per day: 0.5 Smoking cigarettes per day: 10.0 Years smoked: 28 Smoking pack-years: 14.00 Smoking status: Former smoker Tobacco type: cigarettes Second hand tobacco smoke exposure: Yes Additional smoking assessment comments: Patient still vapes Alcohol intake: never Alcohol use details: Occasional/social. Substance use: never Substance use type: does not use Lack of Transportation: No Lack of Food: Sometimes True Current Housing: I Have Housing Concerned About Future Housing: No Difficulty Paying Gas/Electric Bills: No Difficulty Paying for Meds: No Currently Unemployed: No E
[2022-10-08] MEDS: HYDROcodone/acetaminophen (*CRX) 5-325 MG TABLET 1 TAB PO (18:29)
[2022-10-08 18:45] VITALS: BP 145/70; PULSE 85; RESP 16; O2SAT 99
--- NOTE | 2022-10-08 18:49 | ADMGEN ---
This patient, Nuzhat Pettit, was admitted to Medical Room 252-. Patient/family oriented to hospital policies and general routines including ID bracelet, bed and alarms, visiting hours, pain management, procedures, bathroom and other care routines, personal items, smoking policy, room service/diet, and visiting hours. Information on how to activate the Rapid Response Team has been discussed. Patient/Family are encouraged to report perceived risks to care and to ask questions if they do not understand what they are told or what they should do.
[2022-10-08 18:57] VITALS: BP 150/78; PULSE 73; RESP 14; TEMP 36.4; O2SAT 99
[2022-10-08 20:00] VITALS: BP 151/70; PULSE 70; RESP 20; TEMP 36.6; O2SAT 98
[2022-10-08] MEDS: ACETAMINOPHEN 325 MG TABLET 650 MG PO (22:05)
[2022-10-09] VITALS: BP 132/63; PULSE 76; RESP 16; TEMP 36.5; O2SAT 97
[2022-10-09 04:00] VITALS: BP 137/66; PULSE 75; RESP 16; TEMP 36.6; O2SAT 97
[2022-10-09] MEDS: ENOXAPARIN 100 MG/ML SYRINGE SUB-Q (05:14)
[2022-10-09 05:28] LABS: Basophils Absolute Auto 0.1 K/mm3 (0.0-0.1); Basophils Percent Auto 0.9 % (0.2-1.2); Eosinophils Absolute Auto 0.5 K/mm3 (0-0.3); Eosinophils Percent Auto 4.7 % (0-4.4); Hematocrit 37.7 % (37.0-47.0); Hemoglobin 12.8 g/dL (12.0-15.0); Immature Granulocyte Absolute 0.05 K/mm3 (0.00-0.031); Immature Granulocyte Percent A 0.5 % (0-0.5); Lymphocytes Absolute Auto 3.85 K/mm3 (0.9-3.2); Lymphocytes Percent Auto 39.4 % (18.3-44.2); Mean Corpuscular Hemoglobin 30.8 pg (26-34); Mean Corpuscular Volume 90.6 fl (80-100); Mean Platelet Volume 9.4 fl (7.4-10.4); Monocytes Absolute Auto 0.9 K/mm3 (0.1-0.6); Monocytes Percent Auto 9.1 % (2.6-8.5); Neutrophils Absolute Auto 4.4 K/mm3 (1.3-6.7); Neutrophils Percent Auto 45.4 % (45.5-73.1); Platelet Count Result 307 k/mm3 (150-375); Red Blood Count 4.16 M/mm3 (4.2-5.4); Red Cell Distribution Width 12.7 % (11.5-14.5); White Blood Count 9.8 K/mm3 (4.5-10.0)
[2022-10-09 05:35] LABS: Anion Gap 7 mmol/L (8-16); Blood Urea Nitrogen 14 mg/dL (7-17); Carbon Dioxide 25 mmol/L (22-30); Chloride 105 mmol/L (98-107); Estimated CRCL calculation 103 ml/min; Estimated Glomerular Filt Rate > 60; Glucose 91 mg/dL (65-110); Potassium 4.1 mmol/L (3.4-5.0); Sodium 137 mmol/L (137-145)
[2022-10-09] MEDS: HYDROcodone/acetaminophen (*CRX) 5-325 MG TABLET 1 TAB PO ×2 (06:02→12:31)
[2022-10-09] MEDS: ONDANSETRON INJ 4 MG/2 ML VIAL IV PUSH (09:02)
[2022-10-09] MEDS: FAMOTIDINE 20 MG TABLET PO (09:03)
--- NOTE | 2022-10-09 10:41 | PM.DS ---
DS: Admitting Diagnosis Discharge Date 10/09/2022 Admitting Diagnosis acute DVT DS: Discharge Diagnosis Discharge Diagnosis (1) DVT (deep venous thrombosis): Code(s): I82.409 - Acute embolism and thrombosis of unspecified deep veins of unspecified lower extremity Status: Acute DS: Summary Hospital Course Hospital Course: patient admitted with acute right lower extremity pain. Venous duplex showed partial DVT of right popliteal vein. She was started on therapeutic dose of Lovenox. This morning she has been switched to apixaban and is being discharged home Time Spent with Patient Time attestation: Total time spent providing and/or coordinating discharge services: Exam Const: General: cooperative, healthy appearing, comfortable, no acute distress, well developed, alert, awake, Physically active, average body habitus and well nourished Nutritional Appearance: average body habitus and well nourished Orientation/consciousness: oriented to person, oriented to place, oriented to time and patient oriented x3 Limitations: no limitations HENMT: Head: normal to inspection, No palpable skull fracture present, normocephalic and atraumatic Ears: hearing grossly normal bilaterally and external ears normal Face/Nose/Sinus: Normal external nose present and Normal nares present Eyes: General: appearance normal, both eyes and all related structures Alignment and Position: alignment normal Periorbital: periorbital findings normal Eyelids: eyelids normal Sclera: sclerae normal Pupils: Equal, round and reactive pupils present EOM: EOMs intact bilaterally Neck: Neck: normal visual inspection, full ROM, no lymphadenopathy, trachea midline and supple Chest: Chest palpation & inspection: normal inspection of the chest Resp: Effort & Inspection: normal respiratory effort Auscultation: clear to auscultation bilaterally Cardio: Palpation: normal PMI Rate: regular rate Rhythm: regular rhythm Heart sounds: S1 normal heart sound present and S2 normal heart sound present Peripheral pulses: Peripheral pulses 2+ throughout GI: Inspection: normal to inspection Auscultation: normal bowel sounds Rectal Exam: deferred Back/Spine/Pelvis: Cervical Spine: cervical ROM normal Skin: General skin exam: normal color Lesions: no lesions Rashes: no rashes Trauma: no lacerations or abrasions Wounds: no wounds Hair: normal Nails: normal Neuro: General: oriented to person, oriented to place, oriented to time and patient oriented x3 Cranial nerves: Yes Equal, round and reactive pupils present and Yes Normal hearing present Cognition (Neuro): normal cognition Speech: normal speech Motor exam (neuro): 5/5 motor strength present throughout Sensory Exam: normal sensation Extrem: General: normal to inspection Right upper extremity: normal to inspection and shoulder/upper arm Left upper extremity: normal to inspection and shoulder/upper arm Right lower extremity: normal to inspection Left lower extremity: normal to inspection Other: abrasions to lower legs, shins Psych: Appearance: grossly normal Mental Status: mental status grossly normal Speech and movement: Normal speech and movement present Affect: normal affect Attitude: cooperative Thought process: Normal thought process present Thought content: Yes Normal thought content present Insight: Good insight present (Psych) Judgement: Good judgement present (Psych) DS: Data Data Completed and Pending Labs on day of discharge: Labs from last 24 hours 10/09/22 10/09/22 10/08/22 05:12 05:12 16:33 WBC 9.8 RBC 4.16 L Hgb 12.8 Hct 37.7 MCV 90.6 MCH 30.8 MCHC 34.0 RDW 12.7 Plt Count 307 MPV 9.4 Immature Gran % (Auto) 0.5 Neut % (Auto) 45.4 L Lymph % (Auto) 39.4 [place] % (Auto) 9.1 H Eos % (Auto) 4.7 H Baso % (Auto) 0.9 Lymph # (Auto) 3.85 H [place] # (Auto) 0.9 H Eos # (Auto) 0.5 H Baso # (Auto) 0.1 Abs Immat G
[2022-10-09 14:00] VITALS: BP 132/71; PULSE 76; RESP 16; TEMP 36.6; O2SAT 98
--- NOTE | 2022-10-09 14:53 | PHAR ---
SPOKE WITH DR. LAGOS ABOUT LOVENOX DOSING - WANTS 1.5MG/KG DAILY INSTEAD OF 1MG/KG Q12H TRADITIONAL DOSING.
[2022-10-09] MEDS: ENOXAPARIN 100 MG/ML SYRINGE 150 MG SUB-Q (17:55)
== END 2022-10-09 18:39 | disposition home or self-care (01) ==
LOC: ANHED 17:48 → ANH2MED 18:32
PROVIDERS: Admitting Provider Internal Medicine; Emergency Provider Family Medicine; Visit Provider Hospitalist
DX: I82.431 Acute embolism and thrombosis of right popliteal vein (principal); W17.1XXA Fall into storm drain or manhole, initial encounter; Y92.89 Other specified places as the place of occurrence of the external cause; Y99.8 Other external cause status; Z23 Encounter for immunization; F41.9 Anxiety disorder, unspecified; M19.90 Unspecified osteoarthritis, unspecified site; K21.9 Gastro-esophageal reflux disease without esophagitis; K58.9 Irritable bowel syndrome, unspecified; Z59.89 Other problems related to housing and economic circumstances; F17.210 Nicotine dependence, cigarettes, uncomplicated; F10.90 Alcohol use, unspecified, uncomplicated
CPT/HCPCS: 36415; 80048; 80053; 85025; 85610; 90471; 90686; 93971; 96372; 96374; 99285; A9270; G0008; G0378; J1650; J2405

== ENCOUNTER 2022-10-10 14:14 | Outpatient (CLI) | payer SELFPAY ==
[2022-10-10 14:46] LABS: INR 0.9
== END 2022-10-10 14:15 | disposition home or self-care (01) ==
LOC: ANHLAB 14:15
PROVIDERS: Visit Provider Hospitalist
DX: I82.409 Acute embolism and thrombosis of unspecified deep veins of unspecified lower extremity (principal)
CPT/HCPCS: 36415; 85610

== ENCOUNTER 2022-10-20 09:48 | Outpatient (CLI) | payer MEDICAID, SELFPAY ==
[2022-10-20 10:37] LABS: INR 3.4; Prothrombin Time 33.1 Seconds (11.1-14.7)
== END 2022-10-20 09:49 | disposition home or self-care (01) ==
LOC: ANHLAB 09:50
PROVIDERS: PCP Emergency Medicine; Visit Provider Emergency Medicine
DX: Z79.01 Long term (current) use of anticoagulants (principal)
CPT/HCPCS: 36415; 85610

== ENCOUNTER 2022-10-29 15:43 | Outpatient (CLI) | payer MEDICAID, SELFPAY ==
[2022-10-29 16:38] LABS: INR 4.4; Prothrombin Time 40.5 Seconds (11.1-14.7)
== END 2022-10-29 15:44 | disposition home or self-care (01) ==
LOC: ANHLAB 15:45
PROVIDERS: PCP Emergency Medicine; Visit Provider Emergency Medicine
DX: Z79.01 Long term (current) use of anticoagulants (principal)
CPT/HCPCS: 36415; 84443; 85610

== ENCOUNTER 2022-11-06 09:46 | Outpatient (CLI) | payer MEDICAID, SELFPAY ==
[2022-11-06 10:17] LABS: INR 3.8; Prothrombin Time 36.5 Seconds (11.1-14.7)
== END 2022-11-06 09:47 | disposition home or self-care (01) ==
PROVIDERS: PCP Emergency Medicine; Visit Provider Emergency Medicine
DX: Z79.01 Long term (current) use of anticoagulants (principal)
CPT/HCPCS: 36415; 85610

== ENCOUNTER 2022-11-09 16:56 | Observation (INO) | payer MEDICAID, SELFPAY ==
--- NOTE | ~2022-11-09 | US_ITS ---
EXAMINATION: US guide abscess drainage DATE: 11/10/2022 10:30 INDICATION: Left breast abscess. TECHNIQUE: The procedure including the risks, benefits, and alternatives was discussed with the patie nt. Risks discussed included bleeding and infection. The patient understood the risks and agreed to p roceed. The skin overlying the left breast was prepped and draped in usual sterile fashion. Anesthet ic was administered with 1% lidocaine subcutaneously. An 18 gauge needle was inserted into the subar eolar abscess under continuous sonographic guidance. Fluid was aspirated. The entry site was cleaned and dressed. There were no immediate complications. FINDINGS: Ultrasound images demonstrate the needle in the subareolar abscess. IMPRESSION: 1. Ultrasound-guided needle aspiration of a subareolar abscess of left breast yielding 2 mL bloody, t an fluid. Reviewed, dictated and finalized at location A. LOGY TEACHER IMPRESSION: 1. Ultrasound-guided needle aspiration of a subareolar abscess of left breast y ielding 2 mL bloody, matias fluid.
--- NOTE | ~2022-11-09 | US_ITS ---
EXAMINATION: US breast LT limited DATE: 11/09/2022 18:34 INDICATION: Tender left breast mass with nipple discharge. TECHNIQUE: Multiple grayscale and Doppler ultrasound images of the left breast were obtained. COMPARISON: None FINDINGS: In the subareolar region, there is a 2.5 x 2.3 x 0.8 cm hypoechoic cystic mass. IMPRESSION: 1. 2.5 x 2.3 x 0.8 cm hypoechoic cystic mass in the subareolar left breast, most likely an abscess. M alignancy is less likely. Reviewed, dictated and finalized at location A. ERENCE SERVICES COORDINATOR IMPRESSION: 1. 2.5 x 2.3 x 0.8 cm hypoechoic cystic mass in the subareolar left breast, mos t likely an abscess. Malignancy is less likely.
--- NOTE | ~2022-11-09 | XR_ITS ---
EXAMINATION: XR tibia fibula RT 2V DATE: 11/09/2022 18:05 INDICATION: Anterior lower leg wound after fall. TECHNIQUE: 2 views of right tibia and fibula were obtained. COMPARISON: Right tibia and fibula radiographs 09/20/2022 FINDINGS: Bone alignment is normal. No fracture. There is mild right knee osteoarthritis. No radiopaq ue foreign body. IMPRESSION: 1. Mild right knee osteoarthritis. Reviewed, dictated and finalized at location A. FITS ADMINISTRATOR
[2022-11-09 17:10] VITALS: BP 141/82; PULSE 84; RESP 15; TEMP 36.8; O2SAT 100
[2022-11-09 18:31] LABS: Basophils Absolute Auto 0.1 K/mm3 (0.0-0.1); Eosinophils Absolute Auto 0.4 K/mm3 (0-0.3); Eosinophils Percent Auto 3.6 % (0-4.4); Hematocrit 38.3 % (37.0-47.0); Immature Granulocyte Absolute 0.04 K/mm3 (0.00-0.031); Immature Granulocyte Percent A 0.4 % (0-0.5); Lymphocytes Absolute Auto 3.96 K/mm3 (0.9-3.2); Lymphocytes Percent Auto 35.5 % (18.3-44.2); Mean Corpuscular HGB Conc 33.9 g/dl (32-36); Mean Corpuscular Hemoglobin 30.6 pg (26-34); Mean Corpuscular Volume 90.1 fl (80-100); Mean Platelet Volume 9.1 fl (7.4-10.4); Monocytes Absolute Auto 0.8 K/mm3 (0.1-0.6); Monocytes Percent Auto 7.5 % (2.6-8.5); Neutrophils Absolute Auto 5.8 K/mm3 (1.3-6.7); Platelet Count Result 310 k/mm3 (150-375); Red Blood Count 4.25 M/mm3 (4.2-5.4); Red Cell Distribution Width 12.9 % (11.5-14.5); White Blood Count 11.2 K/mm3 (4.5-10.0)
[2022-11-09 18:53] LABS: Anion Gap 7 mmol/L (8-16); Blood Urea Nitrogen 9 mg/dL (7-17); Calcium 9.3 mg/dL (8.4-10.2); Carbon Dioxide 25 mmol/L (22-30); Chloride 102 mmol/L (98-107); Estimated CRCL calculation 106 ml/min; Estimated Glomerular Filt Rate > 60; Glucose 96 mg/dL (65-110); Potassium 3.9 mmol/L (3.4-5.0); Sodium 134 mmol/L (137-145)
[2022-11-09] MEDS: HYDROcodone/acetaminophen (*CRX) 5-325 MG TABLET 1 TAB PO (19:12)
--- NOTE | 2022-11-09 19:25 | ED.GENADULT ---
HPI - General Adult General Chief complaint: Skin/Abscess/Foreign Body Stated complaint: possible infection in right leg Time Seen by Provider: 11/09/22 17:43 History of Present Illness HPI narrative: Patient is a 47-year-old female who presents to the ER with 2 issues. Her first issue is her right lower extremity. She stepped into a store and injured her rodriguez 6 weeks ago. She picked a scab recently and was also wearing a compression stocking which is causing central wound that has is some serosanguineous fluid but no purulent discharge. There is an area about 1 cm x 0.5 cm that is yellow consistent with adipose. There is other follicular irritation that may represent contact dermatitis or folliculitis extending up and down the rodriguez. Patient also reports that over the last 2 days she has developed a mass beneath the areola of the left breast with redness and pain. There is some discharge coming from her nipple. She had something similar in the past where she had a cyst that ruptured and caused infection and required evacuation by Dr. Benson. Patient also takes Coumadin due to DVT in the past. Reports her INR was 3.8 last week. Related Data Home Medications Medication Instructions Recorded Confirmed Benadryl Allergy 25 mg PO Q6H PRN Itching 11/09/22 11/09/22 Daily Probiotic 1 gummy PO DAILY 11/09/22 11/09/22 Allergies Allergy/AdvReac Type Severity Reaction Status Date / Time latex Allergy Rash Verified 11/09/22 22:12 buspirone AdvReac Intermediate Headache Verified 11/09/22 22:12 bupropion AdvReac Mild Agitated Verified 11/09/22 22:12 cephalexin [From Keflex] AdvReac Mild Other Verified 11/09/22 22:12 promethazine AdvReac Mild Agitated Verified 11/09/22 22:12 Review of Systems Review of Systems: All systems reviewed & are unremarkable except as noted in HPI and below Constitutional: Constitutional: Denies chills, Denies fatigue and Denies fever(s) Cardiovascular: Cardiovascular: Denies chest pain, Denies rapid heart rate and Denies radiating jaw, neck or arm pain Gastrointestinal: Gastrointestinal: Denies abdominal pain, Denies nausea and Denies vomiting Integumentary/Breasts: Skin/Breast: Reports breast pain, Reports breast mass, Reports erythema and Reports skin ulcer PMFSH Past Medical History Medical History (Updated 11/09/22 @ 22:25 by Vamshi Desai MD) Abscess of breast, right Anxiety Arthritis Encounter for surgical aftercare following surgery on the skin and subcutaneous tissue GERD (gastroesophageal reflux disease) H/O: HTN (hypertension) History of ovarian cyst Hx gestational diabetes IBS (irritable bowel syndrome) Surgical History Surgical History History of breast surgery June 2019 - Ultrasound guided aspiration of right breast abscess. History of dilation and curettage History of primary section x3 Family History Family History Father Diabetes mellitus Hypertension Mother Hypertension Social History Social History (Updated 10/08/22 @ 23:01 by Cindy Matthews NP) Social History: The patient is and she has 3 children. Currently under financial burden with low income and no insurance. She works as a [employer] at [employer]. She is a former smoker. She drinks socially. No marijuana or illicit drugs. She does not have any power trial attorney Code status full code Smoking packs per day: 0.5 Smoking cigarettes per day: 10.0 Years smoked: 28 Smoking pack-years: 14.00 Smoking status: Current every day smoker Tobacco type: e-cigarettes/vaping Second hand tobacco smoke exposure: Yes Additional smoking assessment comments: Patient still vapes Alcohol intake: former Alcohol use details: Occasional/social. Substance use: never Substance use type: does not use Other substance usage details: rare drinker Lack of Transportati
[2022-11-09 20:20] LABS: INR 3.8; Prothrombin Time 36.2 Seconds (11.1-14.7)
[2022-11-09 20:21] LABS: Partial Thromboplastin Time 57.8 SECONDS (22.3-36.8)
[2022-11-09] MEDS: ceFAZolin 2 GM/D5W 50 ML 2 GM/50 ML BAG IVPB (20:32)
[2022-11-09 21:01] LABS: SARS-CoV-2 RNA PCR Negative
[2022-11-09 22:00] VITALS: BP 148/81; PULSE 76; RESP 20; TEMP 36.9; O2SAT 98; BMI 36.8
[2022-11-09] MEDS: MORPHINE SULFATE (*CRX) 4 MG/ML INJ IV PUSH (22:26)
[2022-11-10] MEDS: HYDROcodone/acetaminophen (*CRX) 5-325 MG TABLET 1 TAB PO ×2 (01:01→06:29)
[2022-11-10] MEDS: diphenhydrAMINE HCl CAP 25 MG CAPSULE PO (04:30)
[2022-11-10 05:08] VITALS: BP 124/66; PULSE 76; RESP 16; TEMP 36.8; O2SAT 97
[2022-11-10] MEDS: ceFAZolin 2 GM/D5W 50 ML 2 GM/50 ML BAG IVPB (05:56)
[2022-11-10] MEDS: MORPHINE SULFATE (*CRX) 4 MG/ML INJ IV PUSH (09:59)
[2022-11-10 11:22] LABS: Hematocrit 37.8 % (37.0-47.0); Hemoglobin 12.6 g/dL (12.0-15.0); Mean Corpuscular HGB Conc 33.3 g/dl (32-36); Mean Corpuscular Hemoglobin 30.4 pg (26-34); Mean Corpuscular Volume 91.1 fl (80-100); Mean Platelet Volume 8.9 fl (7.4-10.4); Platelet Count Result 281 k/mm3 (150-375); Red Blood Count 4.15 M/mm3 (4.2-5.4); Red Cell Distribution Width 12.9 % (11.5-14.5); White Blood Count 9.5 K/mm3 (4.5-10.0)
[2022-11-10 11:31] LABS: INR 3.8
[2022-11-10] MEDS: DIPHENHYDRAMINE 1%/ZINC 0.1% CREAM 30 GM TUBE 1 APPLIC TOPICAL (11:50)
--- NOTE | 2022-11-10 12:21 | PM.SD2 ---
Same Day Admit/Disch: HPI History of Present Illness Chief complaint: breast abscess, rodriguez wound Narrative: Nuhzat Pettit is a 47 year old female who started having subareolar left breast pain 3 days ago. She was seen in the emergency room and examined ultrasound showed left breast abscess. She had a abscess on the right breast 3 years ago which was incised and drained in the operating room. The breast is feeling better. After admission, she underwent ultrasound-guided aspiration of the breast abscess. She is feeling better and is able to be discharged today. She also is on Coumadin due to a DVT in the right leg 10/08/2022. She did injure her right rodriguez by stepping into a manhole when the cover slid back in early September. She has a rash over the area now but no drainage and it has been feeling better. [facility] Past Medical History Medical History Abscess of breast, right Anxiety Arthritis Encounter for surgical aftercare following surgery on the skin and subcutaneous tissue GERD (gastroesophageal reflux disease) H/O: HTN (hypertension) History of ovarian cyst Hx gestational diabetes IBS (irritable bowel syndrome) Surgical History Surgical History History of breast surgery June 2019 - Ultrasound guided aspiration of right breast abscess. History of dilation and curettage History of primary section x3 Family History Family History Father Diabetes mellitus Hypertension Mother Hypertension Social History Social History Social History: The patient is and she has 3 children. Currently under financial burden with low income and no insurance. She works as a [employer] at [employer]. She is a former smoker. She drinks socially. No marijuana or illicit drugs. She does not have any power customer support professional Code status full code Smoking packs per day: 0.5 Smoking cigarettes per day: 10.0 Years smoked: 28 Smoking pack-years: 14.00 Smoking status: Current every day smoker Tobacco type: e-cigarettes/vaping Second hand tobacco smoke exposure: Yes Additional smoking assessment comments: Patient still vapes Alcohol intake: former Alcohol use details: Occasional/social. Substance use: never Substance use type: does not use Other substance usage details: rare drinker Lack of Transportation: No Lack of Food: Never True Current Housing: I Have Housing Concerned About Future Housing: No Difficulty Paying Gas/Electric Bills: No Difficulty Paying for Meds: No Currently Unemployed: No Education: Trade/Vocational Certificate Difficulty w/ Childcare or Family Care: No Additional living arrangements comments: With her cousin who has Autism. Additional occupation/education comments: Hairstylist. Gender identity (if verbalized by the patient): Female Spiritual care concerns: No Agree to blood products: Yes Same Day Admit/Disch: Med Pre-admit Medications Home Medications Medication Instructions Recorded Confirmed Type Benadryl Allergy 25 mg PO Q6H PRN Itching 11/09/22 11/09/22 History Daily Probiotic 1 gummy PO DAILY 11/09/22 11/09/22 History oxycodone 5 mg tablet 5 mg PO Q8H PRN pain #30 tabs 11/09/22 11/09/22 Rx warfarin 2.5 mg tablet 2.5 mg PO DAILY #14 tabs 11/09/22 11/09/22 Rx Exam Const: General: comfortable, no acute distress, alert and awake HENMT: Head: normocephalic and atraumatic Mouth: Yes Normal oral and palatal mucosa present Eyes: Conjunctivae: conjunctivae normal Pupils: Equal, round and reactive pupils present EOM: EOMs intact bilaterally Neck: Neck: normal visual inspection, no lymphadenopathy and nontender Chest: Breast/axilla inspection: normal inspection of the breasts Breast/axilla palpation: abnormal palpati
== END 2022-11-10 13:35 | disposition home or self-care (01) ==
LOC: ANHED 18:42 → ANH2MED 21:32
PROVIDERS: Admitting Provider Surgery; Emergency Provider Emergency Medicine; PCP Emergency Medicine; Visit Provider Surgery
DX: N61.1 Abscess of the breast and nipple (principal); I82.401 Acute embolism and thrombosis of unspecified deep veins of right lower extremity; S89.91XA Unspecified injury of right lower leg, initial encounter; X58.XXXA Exposure to other specified factors, initial encounter; F41.9 Anxiety disorder, unspecified; M17.11 Unilateral primary osteoarthritis, right knee; K21.9 Gastro-esophageal reflux disease without esophagitis; I10 Essential (primary) hypertension; K58.9 Irritable bowel syndrome, unspecified; F10.90 Alcohol use, unspecified, uncomplicated; Z20.822 Contact with and (suspected) exposure to COVID-19; F17.290 Nicotine dependence, other tobacco product, uncomplicated; Z79.01 Long term (current) use of anticoagulants; Z79.891 Long term (current) use of opiate analgesic; Z79.899 Other long term (current) drug therapy; Z83.3 Family history of diabetes mellitus; Z82.49 Family history of ischemic heart disease and other diseases of the circulatory system
CPT/HCPCS: 10160; 36415; 73590; 76642; 76942; 80048; 85025; 85027; 85610; 85730; 87070; 87075; 87076; 87205; 96365; 96375; 99285; A9270; G0378; G0379; J0690; J2270; U0003; U0005

== ENCOUNTER 2022-11-19 13:45 | Outpatient (CLI) | payer MEDICAID, SELFPAY ==
[2022-11-19 17:32] LABS: INR 2.5; Prothrombin Time 26.2 Seconds (11.1-14.7)
== END 2022-11-19 13:46 | disposition home or self-care (01) ==
LOC: ANHGOSHLAB 13:47
PROVIDERS: PCP Emergency Medicine; Visit Provider Emergency Medicine
DX: Z79.01 Long term (current) use of anticoagulants (principal)
CPT/HCPCS: 36415; 85610

== ENCOUNTER 2022-11-27 09:57 | Outpatient (CLI) | payer MEDICAID, SELFPAY ==
[2022-11-27 10:37] LABS: Prothrombin Time 12.4 Seconds (11.1-14.7)
== END 2022-11-27 09:58 | disposition home or self-care (01) ==
LOC: ANHLAB 09:58
PROVIDERS: PCP Emergency Medicine; Visit Provider Emergency Medicine
DX: Z79.01 Long term (current) use of anticoagulants (principal)
CPT/HCPCS: 36415; 85610

== ENCOUNTER 2023-01-12 17:34 | Emergency (ER) | payer BC, SELFPAY ==
[2023-01-12 17:55] VITALS: BP 163/94; PULSE 85; RESP 16; TEMP 37; O2SAT 100
--- NOTE | 2023-01-12 20:27 | ED.GENADULT ---
HPI - General Adult General Chief complaint: Unspecified Stated complaint: wants blood work Time Seen by Provider: 01/12/23 20:27 Source: patient Mode of arrival: ambulatory Limitations: no limitations History of Present Illness HPI narrative: 47 years old white female came to the emergency room by private car complaining of pain at the front of her right lower extremity from knee down to the ankle started few days ago. History of deep vein thrombosis secondary to trauma October 11, 2022. Patient used to be on Eliquis, ran out of it 3 weeks ago, change insurance, could not make it. She denies any pain at the calf muscle, shortness of breath or chest pain, fever or chills or recent trauma. Related Data Home Medications Medication Instructions Recorded Confirmed Benadryl Allergy 25 mg PO Q6H PRN Itching 11/09/22 11/09/22 Daily Probiotic 1 gummy PO DAILY 11/09/22 11/09/22 Allergies Allergy/AdvReac Type Severity Reaction Status Date / Time latex Allergy Rash Verified 01/12/23 18:00 buspirone AdvReac Intermediate Headache Verified 01/12/23 18:00 bupropion AdvReac Mild Agitated Verified 01/12/23 18:00 cephalexin [From Keflex] AdvReac Mild Other Verified 01/12/23 18:00 promethazine AdvReac Mild Agitated Verified 01/12/23 18:00 Review of Systems Review of Systems: All systems reviewed & are unremarkable except as noted in HPI and below PMFSH Past Medical History Medical History Abscess of breast, right Anxiety Arthritis Encounter for surgical aftercare following surgery on the skin and subcutaneous tissue GERD (gastroesophageal reflux disease) H/O: HTN (hypertension) History of ovarian cyst Hx gestational diabetes IBS (irritable bowel syndrome) Surgical History Surgical History History of breast surgery June 2019 - Ultrasound guided aspiration of right breast abscess. History of dilation and curettage History of primary section x3 Family History Family History Father Diabetes mellitus Hypertension Mother Hypertension Social History Social History Social History: The patient is and she has 3 children. Currently under financial burden with low income and no insurance. She works as a [employer] at [employer]. She is a former smoker. She drinks socially. No marijuana or illicit drugs. She does not have any power insurance attorney Code status full code Smoking packs per day: 0.5 Smoking cigarettes per day: 10.0 Years smoked: 28 Smoking pack-years: 14.00 Smoking status: Current every day smoker Tobacco type: e-cigarettes/vaping Second hand tobacco smoke exposure: Yes Additional smoking assessment comments: Patient still vapes Alcohol intake: former Alcohol use details: Occasional/social. Substance use: never Substance use type: does not use Other substance usage details: rare drinker Lack of Transportation: No Lack of Food: Never True Current Housing: I Have Housing Concerned About Future Housing: No Difficulty Paying Gas/Electric Bills: No Difficulty Paying for Meds: No Currently Unemployed: No Education: Trade/Vocational Certificate Difficulty w/ Childcare or Family Care: No Living arrangements: with family Additional living arrangements comments: With her cousin who has Autism. Occupation/Education: occupation Additional occupation/education comments: [employer]. Gender identity (if verbalized by the patient): Female Spiritual care concerns: No Agree to blood products: Yes Exam Narrative: CONSTITUTIONAL: Denies fever, chills, or sweats. EYES: Denies visual changes, redness, or discharge. ENT: Denies rhinorrhea, congestion, sore throat, or otalgia. CARDIOVASCULAR: Denies chest pain, palpitations, or edema. RESPIRA
[2023-01-12 20:31] VITALS: BP 170/76; PULSE 81; RESP 15; O2SAT 97
[2023-01-12 20:46] VITALS: BP 158/84; PULSE 80; RESP 16; O2SAT 100
[2023-01-12] MEDS: APIXABAN 5 MG TABLET 10 MG PO (20:49)
[2023-01-12] MEDS: IBUPROFEN 600 MG TABLET PO (21:14)
[2023-01-12] MEDS: ACETAMINOPHEN 500 MG TABLET 1000 MG PO (21:14)
[2023-01-12 21:16] VITALS: BP 140/75; PULSE 77; RESP 20; O2SAT 100
[2023-01-12 21:35] VITALS: BP 152/75; PULSE 72; RESP 18; O2SAT 98
== END 2023-01-12 21:37 | disposition home or self-care (01) ==
PROVIDERS: Emergency Provider Emergency Medicine; PCP Family Medicine
DX: M79.661 Pain in right lower leg (principal); F41.9 Anxiety disorder, unspecified; M19.90 Unspecified osteoarthritis, unspecified site; K21.9 Gastro-esophageal reflux disease without esophagitis; I10 Essential (primary) hypertension
CPT/HCPCS: 99283; A9270

== ENCOUNTER 2023-05-06 13:51 | Emergency (ER) | payer BC, SELFPAY ==
[2023-05-06 14:04] VITALS: BP 151/84; PULSE 86; RESP 16; TEMP 36.6; O2SAT 97
[2023-05-06 14:43] LABS: Strep Group A RT-PCR NOT DETECTED (Negative)
--- NOTE | 2023-05-06 14:59 | ED.GENADULT ---
HPI - General Adult General Chief complaint: Upper Respiratory Infection Stated complaint: sore throat,cough Time Seen by Provider: 05/06/23 14:09 Source: patient Mode of arrival: ambulatory Limitations: no limitations History of Present Illness HPI narrative: This is a 47-year-old female who presents to the ED with chief complaint of sore throat x1 week. Patient also reports sinus congestion, postnasal drip and cough for the past 3 days. Patient reports subjective fevers but no documented temperatures. 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 Denies chest pain, shortness of breath, abdominal pain, nausea, vomiting. Related Data Home Medications Medication Instructions Recorded Confirmed Benadryl Allergy 25 mg PO Q6H PRN Itching 11/09/22 11/09/22 Daily Probiotic 1 gummy PO DAILY 11/09/22 11/09/22 Allergies Allergy/AdvReac Type Severity Reaction Status Date / Time latex Allergy Rash Verified 05/06/23 14:24 buspirone AdvReac Intermediate Headache Verified 05/06/23 14:24 bupropion AdvReac Mild Agitated Verified 05/06/23 14:24 cephalexin [From Keflex] AdvReac Mild Other Verified 05/06/23 14:24 promethazine AdvReac Mild Agitated Verified 05/06/23 14:24 [facility] Past Medical History Medical History Abscess of breast, right Anxiety Arthritis Encounter for surgical aftercare following surgery on the skin and subcutaneous tissue GERD (gastroesophageal reflux disease) H/O: HTN (hypertension) History of ovarian cyst Hx gestational diabetes IBS (irritable bowel syndrome) Surgical History Surgical History History of breast surgery June 2019 - Ultrasound guided aspiration of right breast abscess. History of dilation and curettage History of primary section x3 Family History Family History Father Diabetes mellitus Hypertension Mother Hypertension Social History Social History Social History: The patient is and she has 3 children. Currently under financial burden with low income and no insurance. She works as a [employer] at [employer]. She is a former smoker. She drinks socially. No marijuana or illicit drugs. She does not have any power energy attorney Code status full code Smoking packs per day: 0.5 Smoking cigarettes per day: 10.0 Years smoked: 28 Smoking pack-years: 14.00 Smoking status: Current every day smoker Tobacco type: e-cigarettes/vaping Second hand tobacco smoke exposure: Yes Additional smoking assessment comments: Patient still vapes Alcohol intake: former Alcohol use details: Occasional/social. Substance use: never Substance use type: does not use Other substance usage details: rare drinker Lack of Transportation: No Lack of Food: Never True Current Housing: I Have Housing Concerned About Future Housing: No Difficulty Paying Gas/Electric Bills: No Difficulty Paying for Meds: No Currently Unemployed: No Education: Trade/Vocational Certificate Difficulty w/ Childcare or Family Care: No Living arrangements: with family Additional living arrangements comments: With her cousin who has Autism. Occupation/Education: occupation Additional occupation/education comments: [employer]. Gender identity (if verbalized by the patient): Female Spiritual care concerns: No Agree to blood products: Yes Exam Narrative: GENERAL: Well-appearing, well-nourished, and in no acute distress. HEAD: Normocephalic, atraumatic. EYES: PERRLA and EOMI. ENT: Nares clear, no rhinorrhea or epistaxis. Mucous membranes moist. Oropharynx without tonsillar hypertrophy exudate or other lesions. Postnasal drip is present. Slightly erythematous posterior oropharynx. Floor the mouth is intact. No
[2023-05-06 16:01] LABS: Influenza A QL RT-PCR Negative (Negative); Influenza B QL RT-PCR Negative (Negative); RSV RNA, RT-PCR Negative (Negative); SARS-CoV-2 RNA PCR Negative (Negative)
[2023-05-06 16:05] VITALS: BP 141/80; PULSE 80; RESP 18; O2SAT 99
== END 2023-05-06 16:09 | disposition home or self-care (01) ==
PROVIDERS: Emergency Medicine; Emergency Provider Physician Assistant
DX: B34.9 Viral infection, unspecified (principal); I10 Essential (primary) hypertension; F17.210 Nicotine dependence, cigarettes, uncomplicated; Z20.822 Contact with and (suspected) exposure to COVID-19
CPT/HCPCS: 87637; 87651; 99283

== ENCOUNTER 2023-06-06 15:40 | Emergency (ER) | payer BC, SELFPAY ==
--- NOTE | 2023-06-06 17:04 | ED.EAR ---
HPI - Ear Problem General Chief complaint: Ear Stated complaint: ear/sinus infection Time Seen by Provider: 06/06/23 15:51 History of Present Illness HPI Narrative: Patient is a 47-year-old female presenting with left ear pain. Patient states that she has been having a lot of facial pressure and she is concerned that she has a sinus infection. She went into a pool several days ago and since that time her left ear has been hurting. States it feels like prior ear infections. States that she tried to contact her PCP but no one was picking up. States that she needs the number for anyone. Denies fevers chills, vomiting, or other systemic symptoms or complaints Related Data Home Medications Medication Instructions Recorded Confirmed Benadryl Allergy 25 mg PO Q6H PRN Itching 11/09/22 11/09/22 Daily Probiotic 1 gummy PO DAILY 11/09/22 11/09/22 Allergies Allergy/AdvReac Type Severity Reaction Status Date / Time latex Allergy Rash Verified 05/06/23 14:24 buspirone AdvReac Intermediate Headache Verified 05/06/23 14:24 bupropion AdvReac Mild Agitated Verified 05/06/23 14:24 cephalexin [From Keflex] AdvReac Mild Other Verified 05/06/23 14:24 promethazine AdvReac Mild Agitated Verified 05/06/23 14:24 Review of Systems Review of Systems: All systems reviewed & are unremarkable except as noted in HPI and below PMFSH Past Medical History Medical History Abscess of breast, right Anxiety Arthritis Encounter for surgical aftercare following surgery on the skin and subcutaneous tissue GERD (gastroesophageal reflux disease) H/O: HTN (hypertension) History of ovarian cyst Hx gestational diabetes IBS (irritable bowel syndrome) Surgical History Surgical History History of breast surgery June 2019 - Ultrasound guided aspiration of right breast abscess. History of dilation and curettage History of primary section x3 Family History Family History Father Diabetes mellitus Hypertension Mother Hypertension Social History Social History Social History: The patient is and she has 3 children. Currently under financial burden with low income and no insurance. She works as a [employer] at [employer]. She is a former smoker. She drinks socially. No marijuana or illicit drugs. She does not have any power research attorney Code status full code Smoking packs per day: 0.5 Smoking cigarettes per day: 10.0 Years smoked: 28 Smoking pack-years: 14.00 Smoking status: Current every day smoker Tobacco type: e-cigarettes/vaping Second hand tobacco smoke exposure: Yes Additional smoking assessment comments: Patient still vapes Alcohol intake: former Alcohol use details: Occasional/social. Substance use: never Substance use type: does not use Other substance usage details: rare drinker Lack of Transportation: No Lack of Food: Never True Current Housing: I Have Housing Concerned About Future Housing: No Difficulty Paying Gas/Electric Bills: No Difficulty Paying for Meds: No Currently Unemployed: No Education: Trade/Vocational Certificate Difficulty w/ Childcare or Family Care: No Living arrangements: with family Additional living arrangements comments: With her cousin who has Autism. Occupation/Education: occupation Additional occupation/education comments: [employer]. Gender identity (if verbalized by the patient): Female Spiritual care concerns: No Agree to blood products: Yes Exam Narrative: GENERAL: Well-appearing, well-nourished, and in no acute distress. HEAD: Normocephalic, atraumatic. EYES: PERRLA and EOMI. ENT: Nares clear, no rhinorrhea or epistaxis. Mucous membranes moist. R TM is pearly high, normal canal; L canal is
[2023-06-06] MEDS: CIPROFLOXACIN HC OTIC 10 ML 3 DROP LEFT EAR (17:42)
[2023-06-06 17:54] VITALS: BP 155/84; PULSE 95; RESP 19; TEMP 36.9; O2SAT 94
== END 2023-06-06 17:55 | disposition home or self-care (01) ==
PROVIDERS: Emergency Provider Emergency Medicine
DX: H60.92 Unspecified otitis externa, left ear (principal); H61.22 Impacted cerumen, left ear; I10 Essential (primary) hypertension; M19.90 Unspecified osteoarthritis, unspecified site; K21.9 Gastro-esophageal reflux disease without esophagitis; K58.9 Irritable bowel syndrome, unspecified; F17.290 Nicotine dependence, other tobacco product, uncomplicated
CPT/HCPCS: 69209; 99283; A9270

== ENCOUNTER 2023-10-04 12:45 | Emergency (ER) | payer BC, SELFPAY ==
--- NOTE | ~2023-10-04 | US_ITS ---
US breast LT limited DATE: 10/04/2023 17:07 INDICATION: Breast abscess TECHNIQUE: Real-time and color flow imaging of left breast, targeted area clinical complaint at 8:00 subareolar region COMPARISON: 11/09/2022 Limited left breast ultrasound FINDINGS: At the 8:00 subareolar area there is an irregular complicated fluid collection with through transmission and posterior enhancement, measuring up to 1.8 x 1.6 x 1.4 cm, compared to 2.5 x 2.3 x 0.8 mm left subareolar complicated fluid collection on 11/09/2022 IMPRESSION: Residual or recurrent left subareolar abscess Reviewed, dictated and finalized at [facility] Reviewed, dictated and finalized at [facility]
[2023-10-04 12:56] VITALS: BP 138/91; PULSE 88; RESP 18; TEMP 36.7; O2SAT 100
--- NOTE | 2023-10-04 14:32 | ED.GENADULT ---
HPI - General Adult General Chief complaint: Unspecified Stated complaint: breast pain X4 days Time Seen by Provider: 10/04/23 13:39 History of Present Illness HPI narrative: Patient is a 47-year-old female presenting with left breast pain. States she developed pain and swelling several days ago around her left nipple. States that it feels like a prior breast abscess. She denies any drainage. She denies fevers or chills. No further complaints or lesions. Related Data Home Medications Medication Instructions Recorded Confirmed Benadryl Allergy 25 mg PO Q6H PRN Itching 11/09/22 11/09/22 Daily Probiotic 1 gummy PO DAILY 11/09/22 11/09/22 Allergies Allergy/AdvReac Type Severity Reaction Status Date / Time latex Allergy Rash Verified 10/04/23 12:45 buspirone AdvReac Intermediate Headache Verified 10/04/23 12:45 bupropion AdvReac Mild Agitated Verified 10/04/23 12:45 cephalexin [From Keflex] AdvReac Mild Other Verified 10/04/23 12:45 promethazine AdvReac Mild Agitated Verified 10/04/23 12:45 Review of Systems Review of Systems: All systems reviewed & are unremarkable except as noted in HPI and below PMFSH Past Medical History Medical History Abscess of breast, right Anxiety Arthritis Encounter for surgical aftercare following surgery on the skin and subcutaneous tissue GERD (gastroesophageal reflux disease) H/O: HTN (hypertension) History of ovarian cyst Hx gestational diabetes IBS (irritable bowel syndrome) Surgical History Surgical History History of breast surgery June 2019 - Ultrasound guided aspiration of right breast abscess. History of dilation and curettage History of primary section x3 Family History Family History Father Diabetes mellitus Hypertension Mother Hypertension Social History Social History Social History: The patient is and she has 3 children. Currently under financial burden with low income and no insurance. She works as a [employer] at [employer]. She is a former smoker. She drinks socially. No marijuana or illicit drugs. She does not have any power deputy prosecuting attorney Code status full code Smoking packs per day: 0.5 Smoking cigarettes per day: 10.0 Years smoked: 28 Smoking pack-years: 14.00 Smoking status: Current every day smoker Tobacco type: e-cigarettes/vaping Second hand tobacco smoke exposure: Yes Additional smoking assessment comments: Patient still vapes Alcohol intake: former Alcohol use details: Occasional/social. Substance use: never Substance use type: does not use Other substance usage details: rare drinker Lack of Transportation: No Lack of Food: Never True Current Housing: I Have Housing Concerned About Future Housing: No Difficulty Paying Gas/Electric Bills: No Difficulty Paying for Meds: No Currently Unemployed: No Education: Trade/Vocational Certificate Difficulty w/ Childcare or Family Care: No Living arrangements: with family Additional living arrangements comments: With her cousin who has Autism. Occupation/Education: occupation Additional occupation/education comments: Hairstylist. Gender identity (if verbalized by the patient): Female Spiritual care concerns: No Agree to blood products: Yes Exam Narrative: GENERAL: Well-appearing, well-nourished, and in no acute distress. HEAD: Normocephalic, atraumatic. EYES: PERRLA and EOMI. ENT: grossly unremarkable NECK: Supple. CHEST: No respiratory distress. HEART: Regular rate and rhythm BREAST: 1-2cm area of induration and tenderness just medial to left nipple, no drainage, no fluctuance felt ABDOMEN: Soft, nontender, nondistended. EXTREMITIES: Normal range of motion. SKIN: Warm, dry
[2023-10-04] MEDS: MORPHINE SULFATE (*CRX) 4 MG/ML INJ IV PUSH ×2 (15:14→18:24)
[2023-10-04] MEDS: KETOROLAC 30 MG/ML VIAL (*BKC) IV PUSH (15:14)
[2023-10-04] MEDS: SODIUM CHLORIDE 0.9% IV 1,000 ML 999 ML IV CONT (15:14)
[2023-10-04 15:24] LABS: Basophils Absolute Auto 0.1 K/mm3 (0.0-0.1); Eosinophils Absolute Auto 0.4 K/mm3 (0-0.3); Eosinophils Percent Auto 3.5 % (0-4.4); Hematocrit 42.1 % (37.0-47.0); Hemoglobin 13.6 g/dL (12.0-15.0); Immature Granulocyte Absolute 0.06 K/mm3 (0.00-0.031); Immature Granulocyte Percent A 0.5 % (0-0.5); Lymphocytes Absolute Auto 3.89 K/mm3 (0.9-3.2); Mean Corpuscular HGB Conc 32.3 g/dl (32-36); Mean Corpuscular Hemoglobin 30.2 pg (26-34); Mean Corpuscular Volume 93.3 fl (80-100); Mean Platelet Volume 9.8 fl (7.4-10.4); Monocytes Absolute Auto 0.8 K/mm3 (0.1-0.6); Monocytes Percent Auto 7.4 % (2.6-8.5); Neutrophils Absolute Auto 5.9 K/mm3 (1.3-6.7); Neutrophils Percent Auto 52.6 % (45.5-73.1); Platelet Count Result 292 k/mm3 (150-375); Red Blood Count 4.51 M/mm3 (4.2-5.4); Red Cell Distribution Width 13.3 % (11.5-14.5); White Blood Count 11.1 K/mm3 (4.5-10.0)
[2023-10-04 15:36] LABS: Anion Gap 10 mmol/L (8-16); Blood Urea Nitrogen 9 mg/dL (7-17); Calcium 9.6 mg/dL (8.4-10.2); Carbon Dioxide 24 mmol/L (22-30); Chloride 105 mmol/L (98-107); Estimated CRCL calculation 121 ml/min; Estimated Glomerular Filt Rate > 60; Glucose 98 mg/dL (65-110); Potassium 4.2 mmol/L (3.4-5.0); Sodium 139 mmol/L (137-145)
[2023-10-04] MEDS: LIDOCAINE HCL 1% LOCAL INJ 10 ML VIAL INFILTRATE (18:25)
[2023-10-04] MEDS: ceFAZolin 2 GM/D5W 50 ML 2 GM/50 ML BAG IVPB (19:10)
[2023-10-04] MEDS: oxyCODONE/ACETAMINOPHEN (*CRX) 5-325 MG TABLET 1 TABLET PO (19:22)
[2023-10-04] MEDS: ONDANSETRON INJ 4 MG/2 ML VIAL IV PUSH (19:23)
[2023-10-04 19:31] VITALS: BP 132/74; PULSE 80; RESP 15; O2SAT 100
== END 2023-10-04 19:32 | disposition home or self-care (01) ==
PROVIDERS: Emergency Provider Emergency Medicine
DX: N61.1 Abscess of the breast and nipple (principal); I10 Essential (primary) hypertension; M19.90 Unspecified osteoarthritis, unspecified site; K21.9 Gastro-esophageal reflux disease without esophagitis; K58.9 Irritable bowel syndrome, unspecified; F17.290 Nicotine dependence, other tobacco product, uncomplicated
CPT/HCPCS: 10060; 36415; 76642; 80048; 85025; 87070; 87205; 96361; 96374; 96375; 96376; 99284; A9270; J0690; J1885; J2270; J2405; J7030

== ENCOUNTER 2023-11-26 16:54 | Inpatient (IN) | payer MEDICAID, SELFPAY ==
--- NOTE | ~2023-11-26 | US_ITS ---
EXAMINATION: US breast LT limited DATE: 11/26/2023 19:25 INDICATION: Left breast pain. TECHNIQUE: Multiple grayscale and Doppler ultrasound images of the left breast were obtained. COMPARISON: Ultrasound 10/04/2023 FINDINGS: In the left breast, there is a subareolar abscess measuring 2.7 x 2.8 x 1.7 cm. IMPRESSION: 1. 2.8 cm subareolar abscess in left breast, worsened from 1.8 cm on 10/04/2023. Reviewed, dictated and finalized at [facility] IMPRESSION: 1. 2.8 cm subareolar abscess in left breast, worsened from 1.8 cm on 10/04/2023 .
[2023-11-26 16:56] VITALS: BP 177/90; PULSE 86; RESP 20; TEMP 36.6; O2SAT 99
[2023-11-26] MEDS: HYDROcodone/acetaminophen (*CRX) 5-325 MG TABLET 1 TAB PO ×2 (19:00→23:53)
[2023-11-26] MEDS: IBUPROFEN 600 MG TABLET PO (19:01)
[2023-11-26 19:27] LABS: Basophils Absolute Auto 0.1 K/mm3 (0.0-0.1); Basophils Percent Auto 0.8 % (0.2-1.2); Eosinophils Absolute Auto 0.3 K/mm3 (0-0.3); Eosinophils Percent Auto 2.4 % (0-4.4); Hematocrit 43.6 % (37.0-47.0); Hemoglobin 14.4 g/dL (12.0-15.0); Immature Granulocyte Absolute 0.06 K/mm3 (0.00-0.031); Immature Granulocyte Percent A 0.5 % (0-0.5); Lymphocytes Absolute Auto 4.55 K/mm3 (0.9-3.2); Lymphocytes Percent Auto 38.4 % (18.3-44.2); Mean Corpuscular Hemoglobin 30.6 pg (26-34); Mean Corpuscular Volume 92.8 fl (80-100); Mean Platelet Volume 9.8 fl (7.4-10.4); Monocytes Absolute Auto 1.1 K/mm3 (0.1-0.6); Monocytes Percent Auto 9.3 % (2.6-8.5); Neutrophils Absolute Auto 5.8 K/mm3 (1.3-6.7); Neutrophils Percent Auto 48.6 % (45.5-73.1); Platelet Count Result 315 k/mm3 (150-375); White Blood Count 11.8 K/mm3 (4.5-10.0)
--- NOTE | 2023-11-26 20:15 | ED.SKABFB ---
HPI - Skin/Abscess/Foreign Bdy General Chief complaint: Skin/Abscess/Foreign Body <LULÚ Rodriguez Last Filed: 11/26/23 22:52> Stated complaint: left breast infection <LULÚ Rodriguez Last Filed: 11/26/23 22:52> Time Seen by Provider: 11/26/23 18:23 <LULÚ Rodriguez Last Filed: 11/26/23 22:52> Source: patient <LULÚ Rodriguez Last Filed: 11/26/23 22:52> Mode of arrival: ambulatory <LULÚ Rodriguez Last Filed: 11/26/23 22:52> Limitations: no limitations <LULÚ Rodriguez Last Filed: 11/26/23 22:52> History of Present Illness HPI narrative: Patient is a 48-year-old female who presents the ED with report of left breast pain. Patient reports issues with recurrent abscesses in her breasts. She has seen Dr. Cooley/Kelley for this and required surgical drainage of abscesses in the past. States over last 4-5 days, she has developed pain, redness, warmth to left breast, just medial to her areola. She reports subjective fevers today. She has been taking ibuprofen at home for the pain. She has not tried contacting the office. Denies drainage from the breast. <LULÚ Rodriguez Last Filed: 11/26/23 22:52> Related Data Allergies/Adverse reactions: Allergies Allergy/AdvReac Type Severity Reaction Status Date / Time latex Allergy Rash Verified 11/27/23 13:32 buspirone AdvReac Intermediate Headache Verified 11/27/23 13:32 bupropion AdvReac Mild Agitated Verified 11/27/23 13:32 cephalexin [From Keflex] AdvReac Mild Other Verified 11/27/23 13:32 promethazine AdvReac Mild Agitated Verified 11/27/23 13:32 <LULÚ Rodriguez Last Filed: 11/26/23 22:52> Review of Systems Review of Systems: CONSTITUTIONAL: See HPI. MUSCULOSKELETAL: See HPI. <Sharon Hedrick PA-C - Last Filed: 11/26/23 22:52> All systems reviewed & are unremarkable except as noted in HPI and below <Sharon Hedrick PA-C - Last Filed: 11/26/23 22:52> PMFSH Past Medical History Medical History: Medical History Abscess of breast, right Anxiety Arthritis Encounter for surgical aftercare following surgery on the skin and subcutaneous tissue GERD (gastroesophageal reflux disease) H/O: HTN (hypertension) History of ovarian cyst Hx gestational diabetes IBS (irritable bowel syndrome) <Sharon Hedrick PA-C - Last Filed: 11/26/23 22:52> Surgical History Surgical History: Surgical History History of breast surgery June 2019 - Ultrasound guided aspiration of right breast abscess. History of dilation and curettage History of primary section x3 <Sharon Hedrick PA-C - Last Filed: 11/26/23 22:52> Family History Family History: Family History Father Diabetes mellitus Hypertension Mother Hypertension <Sharon Hedrick PA-C - Last Filed: 11/26/23 22:52> Social History Social History: Social History Social History: The patient is and she has 3 children. Currently under financial burden with low income and no insurance. She works as a [employer] at [employer]. She is a former smoker. She drinks socially. No marijuana or illicit drugs. She does not have any power research attorney Code status full code Smoking packs per day: 0.2 Smoking cigarettes per day: 4.0 Years smoked: 28 Smoking pack-years: 5.60 Smoking status: Current every day smoker Tobacco type: cigarettes and e-cigarettes/vaping Second hand tobacco smoke exposure: Yes Additional smoking assessment comments: Patient still vapes Alcohol intake: current Drinks per week: 1 Alcohol use details: Occasional/social. Substance use: never Substance us
[2023-11-26] MEDS: ONDANSETRON HCL ODT 4 MG TABLET PO (20:19)
[2023-11-26 22:08] VITALS: BP 165/89; PULSE 77; RESP 16; TEMP 36.6; O2SAT 99
--- NOTE | 2023-11-26 22:30 | PM.IMHP ---
H&P: HPI History of Present Illness Date/Time: 11/26/23 22:30 Chief Complaint: L eft breast abscess Narrative: This is a 48-year-old female with past medical history significant for recurrent left breast abscess, GERD, hypertension, DVT, COVID, tobacco dependence. Patient presents to the emergency room due to left breast abscess. Patient had similar situation in September of 2023 when she presented to emergency room and a 3D cc were drained from her left breast through ultrasound-guided. Denies any fevers, rigors, chills, nausea, vomiting denies any discharge. Preliminary workup was significant for ultrasound of the breast was reported as: EXAMINATION: US breast LT limited DATE:? 11/26/2023 19:25 INDICATION: Left breast pain. TECHNIQUE: Multiple grayscale and Doppler ultrasound images of the left breast were obtained. COMPARISON: Ultrasound 10/04/2023 FINDINGS: In the left breast, there is a subareolar abscess measuring 2.7 x 2.8 x 1.7 cm. IMPRESSION: 1. 2.8 cm subareolar abscess in left breast, worsened from 1.8 cm on 10/04/2023. Patient has been admitted for further evaluation management and treatment. Review of Systems Review of Systems: L breast abscess, tenderness, redness. Constitutional: Constitutional: Denies chills, Denies fatigue, Denies fever(s), Denies malaise and Denies night sweats Eyes: Eyes: Denies change in vision ENT: Denies dysphagia and Denies odynophagia Cardiovascular: Cardiovascular: Denies chest pain, Denies irregular heart rhythm, Denies leg edema, Denies radiating jaw, neck or arm pain and Denies palpitations Respiratory: Respiratory: Denies chest congestion, Denies cough and Denies dyspnea Gastrointestinal: Gastrointestinal: Denies abdominal pain, Denies nausea and Denies vomiting Genitourinary: Genitourinary: Denies dysuria Musculoskeletal: Musculoskeletal: Denies arthralgias Integumentary/Breasts: Skin/Breast: Reports breast mass and Reports erythema Neurologic: Denies focal weakness and Denies Sensory deficit (Neuro) Psychiatric: Psychiatric: Reports no additional psychiatric complaints and Reports as per HPI Endocrine: Endocrine: Denies cold intolerance, Denies fatigue, Denies flushing, Denies heat intolerance, Denies polyphagia, Denies polydipsia and Denies palpitations Hematologic/Lymphatic: Hematologic/Lymphatic: Reports no additional hematologic/lymphatic complaints and Reports as per HPI Allergic/Immunologic: Allergic/Immunologic: Reports no additional allergic/immunologic complaints and Reports as per HPI PMFSH Past Medical History Medical History Abscess of breast, right Anxiety Arthritis Encounter for surgical aftercare following surgery on the skin and subcutaneous tissue GERD (gastroesophageal reflux disease) H/O: HTN (hypertension) History of ovarian cyst Hx gestational diabetes IBS (irritable bowel syndrome) Surgical History Surgical History History of breast surgery June 2019 - Ultrasound guided aspiration of right breast abscess. History of dilation and curettage History of primary section x3 Family History Family History Father Diabetes mellitus Hypertension Mother Hypertension Social History Social History Social History: The patient is and she has 3 children. Currently under financial burden with low income and no insurance. She works as a [employer] at [employer]. She is a former smoker. She drinks socially. No marijuana or illicit drugs. She does not have any power foot press operator Code status full code Smoking packs per day: 0.2 Smoking cigarettes per day: 4.0 Years smoked: 28 Smoking pack-years: 5.60 Smoking status: Current every day smoker Tobacco
[2023-11-26 22:58] LABS: INR 0.9; Prothrombin Time 12.8 Seconds (11.1-14.7)
[2023-11-26 23:01] LABS: Alanine Aminotransferase 23 U/L (6-35); Albumin Level 3.9 g/dL (3.5-5.1); Alkaline Phosphatase 111 U/L (38-126); Anion Gap 6 mmol/L (8-16); Aspartate Amino Transferase 31 U/L (14-36); Bilirubin,Total 0.4 mg/dL (0.2-1.3); Blood Urea Nitrogen 12 mg/dL (7-17); Calcium 9.5 mg/dL (8.4-10.2); Carbon Dioxide 27 mmol/L (22-30); Chloride 103 mmol/L (98-107); Estimated CRCL calculation 103 ml/min; Estimated Glomerular Filt Rate > 60; Glucose 105 mg/dL (65-110); Sodium 136 mmol/L (137-145)
[2023-11-27] VITALS (12 sets, daily range): BP systolic 113–158; BP diastolic 70–90; PULSE 68–94; RESP 12–20; TEMP 36.5–37.2; O2SAT 97–100; BMI 37.0
--- NOTE | 2023-11-27 00:24 | ADMGEN ---
This patient, Nuzhat Pettit, was admitted to Medical Room 251-. Patient/family oriented to hospital policies and general routines including ID bracelet, bed and alarms, visiting hours, pain management, procedures, bathroom and other care routines, personal items, smoking policy, room service/diet, and visiting hours. Information on how to activate the Rapid Response Team has been discussed. Patient/Family are encouraged to report perceived risks to care and to ask questions if they do not understand what they are told or what they should do.
[2023-11-27] MEDS: VANCOMYCIN 1,500 MG/NS 500 ML 1,500 MG/500 ML BAG 250 MG IVPB ×3 (00:43→23:03)
[2023-11-27] MEDS: HYDROcodone/acetaminophen (*CRX) 5-325 MG TABLET 1 TAB PO ×3 (04:14→22:59)
[2023-11-27 05:44] LABS: Estimated CRCL calculation 123 ml/min; Estimated Glomerular Filt Rate > 60
[2023-11-27 07:11] LABS: Basophils Absolute Auto 0.1 K/mm3 (0.0-0.1); Basophils Percent Auto 0.8 % (0.2-1.2); Eosinophils Absolute Auto 0.4 K/mm3 (0-0.3); Eosinophils Percent Auto 3.2 % (0-4.4); Hematocrit 39.4 % (37.0-47.0); Hemoglobin 13.5 g/dL (12.0-15.0); Immature Granulocyte Absolute 0.05 K/mm3 (0.00-0.031); Immature Granulocyte Percent A 0.5 % (0-0.5); Lymphocytes Absolute Auto 4.68 K/mm3 (0.9-3.2); Lymphocytes Percent Auto 43.3 % (18.3-44.2); Mean Corpuscular HGB Conc 34.3 g/dl (32-36); Mean Corpuscular Hemoglobin 31.5 pg (26-34); Mean Corpuscular Volume 91.8 fl (80-100); Mean Platelet Volume 9.7 fl (7.4-10.4); Monocytes Absolute Auto 1.3 K/mm3 (0.1-0.6); Monocytes Percent Auto 11.9 % (2.6-8.5); Neutrophils Absolute Auto 4.4 K/mm3 (1.3-6.7); Neutrophils Percent Auto 40.3 % (45.5-73.1); Platelet Count Result 288 k/mm3 (150-375); Red Blood Count 4.29 M/mm3 (4.2-5.4); Red Cell Distribution Width 13.2 % (11.5-14.5); White Blood Count 10.8 K/mm3 (4.5-10.0)
[2023-11-27 07:24] LABS: Anion Gap 8 mmol/L (8-16); Blood Urea Nitrogen 11 mg/dL (7-17); Carbon Dioxide 23 mmol/L (22-30); Chloride 106 mmol/L (98-107); Estimated CRCL calculation 123 ml/min; Estimated Glomerular Filt Rate > 60; Glucose 74 mg/dL (65-110); Sodium 137 mmol/L (137-145)
--- NOTE | 2023-11-27 09:54 | PM.CNGS ---
Assessment and Plan Assessment and plan (1) Abscess of left breast: Code(s): N61.1 - Abscess of the breast and nipple Status: Acute Assessment and Plan: Patient with recurrent subareolar left breast abscess. Left breast ultrasound measured a 2.7 x 2.8 x 1.7 cm abscess. There is subareolar erythema and tenderness with an area of fluctuance. Discussed the case with Dr. Benson. We would recommend to proceed with incision and drainage of the left breast abscess in the OR by Dr. Benson. Continue IV vancomycin. Will make her NPO and start IV fluids. (2) Tobacco abuse: Code(s): Z72.0 - Tobacco use Status: Acute Assessment and Plan: Encouraged cessation. Discussed with the patient that this increases her risks of recurrent infections. Patient is actively working on quitting. (3) Obesity (BMI 35.0-39.9 without comorbidity): Code(s): E66.9 - Obesity, unspecified Status: Acute Plan I have discussed the patient's case and plan of care with Dr. Benson. Thank you for allowing us to see the patient in consultation and we will continue to follow along with you. History of Present Illness Consult details Consult date: 11/27/23 Reason for consult: other (Left breast abscess) Requesting physician: Sharon Hedrick PA-C Narrative: This is a 48-year-old woman with a history of tobacco abuse, who we have been asked to see in surgical consultation for a left breast abscess. She has been seen by our service multiple times in the past for similar issues. She had a right breast abscess in 2019 that required incision and drainage in the OR. She returned with a left breast abscess in October of 2022 and had ultrasound-guided aspiration with antibiotics. She also presented to the ER 2 months ago for a left breast abscess, and had a bedside needle aspiration with antibiotics, and was sent home. She reports taking the entire course of Bactrim as prescribed, and then had complete resolution of symptoms. She denies noticing a nodule or lump in this area. Denies any nipple discharge or redness. About 5-7 days ago, she developed subareolar pain, swelling, and redness. She reports subjective fevers yesterday. She decided to come into the ER for further evaluation. Since she has been taking ibuprofen at home for the pain. She denies being seen for this prior to her presentation to the ER yesterday. She had a left breast ultrasound that showed a 2.8 cm subareolar abscess of the left breast. This was slightly larger than what was measured under ultrasound in September, but in the same location. The patient was admitted and started on IV vancomycin. She is now with seen on the medical floor. She is still a smoker, but has been working on cutting back this year. She is now down to 1 pack per 2 weeks and has a goal of quitting. She was also admitted for a DVT in 2021 and is no longer taking anticoagulation. Denies a history of MRSA and this is not seen on any previous cultures in review of her chart. She did have a biopsy of adjacent breast tissue during her I&D in 2019 that was benign, but this was her right breast. Review of Systems Review of Systems: All systems reviewed & are unremarkable except as noted in HPI and below PMFSH Past Medical History Medical History Abscess of breast, right Anxiety Arthritis Encounter for surgical aftercare following surgery on the skin and subcutaneous tissue GERD (gastroesophageal reflux disease) H/O: HTN (hypertension) History of ovarian cyst Hx gestational diabetes IBS (irritable bowel syndrome) Surgical History Surgical History History of breast surgery June 2019 - Ultrasound guided aspiration of right breast abscess. History of dilation and curettage History of primary section x3 Family History Family History (Reviewed 11/26/23 @ 20:19 by Yi
[2023-11-27] MEDS: IBUPROFEN 600 MG TABLET PO (10:02)
[2023-11-27] MEDS: PANTOPRAZOLE 40 MG TABLET PO (10:02)
--- NOTE | 2023-11-27 11:27 | PM.IMPN ---
Progress Note: A&P Assessment and Plan (1) Abscess of left breast: Code(s): N61.1 - Abscess of the breast and nipple Status: Acute Assessment and Plan: Abscess of the left breast under the nipple that is recurrent from 10/04/2023 Started on vancomycin General surgery consult Patient made NPO I and D later this afternoon (2) Breast pain, left: Code(s): N64.4 - Mastodynia Status: Acute Assessment and Plan: analgesics as needed. (3) Deep vein thrombosis (DVT) of right lower extremity: Code(s): I82.401 - Acute embolism and thrombosis of unspecified deep veins of right lower extremity Status: Acute Assessment and Plan: Patient is no longer on anticoagulation (4) Tobacco abuse: Code(s): Z72.0 - Tobacco use Status: Acute Assessment and Plan: Patient currently vapes and smokes a pack of cigarette it once a week (5) GERD (gastroesophageal reflux disease): Code(s): K21.9 - Gastro-esophageal reflux disease without esophagitis Status: Acute Assessment and Plan: PPI Subjective Date/time seen: 11/27/23 11:27 Interval history: Patient having left breast pain. She states that she has a subjective fever yesterday but did not take her temperature. She denied any nausea vomiting or pain with moving her extremities. Patient planning on having I and D later today. Exam Narrative: GENERAL: Comfortable, no acute distress HENMT: moist mucous membranes EYES: EOM intact b/l NECK: no lymphadenopathy RESPIRATORY: clear to auscultation CARDIO: RRR Breast: Induration directly under the left nipple, no visible drainage, minimal erythema, tender to palpation Objective Data Vital Signs Vital Signs: Vital Signs - 24 hr 11/26/23 16:56 11/26/23 22:08 11/27/23 00:17 Temperature 97.9 F 97.8 F 98.4 F Pulse Rate 86 77 68 Respiratory Rate 20 16 16 Blood Pressure 177/90 H 165/89 H 158/90 H Pulse Oximetry 99 99 98 Oxygen Delivery Room Air 11/27/23 00:17 11/27/23 06:24 Temperature 97.8 F Pulse Rate 72 Respiratory Rate 16 Blood Pressure 113/70 Pulse Oximetry 98 Oxygen Delivery Room Air Intake/Output Intake/Output: Intake & Output 11/24/23 11/25/23 11/26/23 11/27/23 23:59 23:59 23:59 23:59 Intake Total 320 Balance 320 Meds/Results Medications: Active Medications Generic Name Dose Route Start Last Admin Trade Name Freq PRN Reason Stop Dose Admin Hydrocodone Bitart/Acetaminophen 1 tab 11/26/23 22:37 11/27/23 04:14 Hydrocodone/Acetaminophen (*Crx) 5-325 Mg Tablet PO 1 tab Q4H PRN Administration Pain Rated 4-6 Vancomycin HCl 1,500 mg in 500 mls @ 250 mls/hr 11/27/23 00:00 11/27/23 00:43 Vancomycin 1,500 Mg/Ns 500 Ml IVPB 250 mls/hr Q12H CARLITA Administration Lactated Ringer's 1,000 mls @ 100 mls/hr 11/27/23 10:30 Lr - Lactated Ringers Iv IV CONT .Q10H CARLITA Ibuprofen 600 mg 11/27/23 09:05 11/27/23 10:02 Ibuprofen 600 Mg Tablet PO 600 mg Q6H PRN Administration Pain Rated 1-3 Morphine Sulfate 4 mg 11/26/23 22:37 Morphine Sulfate (*Crx) 4 Mg/Ml Inj IV PUSH Q2H PRN Pain Rated 7-10 Ondansetron HCl 4 mg 11/26/23 22:37 Ondansetron Inj 4 Mg/2 Ml Vial IV PUSH Q4H PRN Nausea Pantoprazole Sodium 40 mg 11/27/23 09:00 11/27/23 10:02 Pantoprazole 40 Mg Tablet PO 40 mg QAM CARLITA Administration Radiology Results: ITS Impressions Breast Ultrasound 11/26/23 21:14 IMPRESSION: 1. 2.8 cm subareolar abscess in left breast, worsened from 1.8 cm on 10/04/2023. Labs Labs: Laboratory Results - last 24 hr 11/26/23 11/26/23 11/27/23 19:07 22:40 05:15 WBC 11.8 H 10.8 H RBC 4.70 4.29 Hgb 14.4 13.5 Hct 43.6 39.4 MCV 92.8 91.8 MCH 30.6 31.5 MCHC 33.0 34.3 RDW 13.0 13.2 Plt Count 315 288 MPV 9.8 9.7 Immature Gran % (Auto) 0.5 0.5 N
[2023-11-27] MEDS: LACTATED RINGERS 1,000 ML 100 ML IV CONT (11:47)
--- NOTE | 2023-11-27 12:42 | WPDANESEPPF ---
Anes - Initial Pre Proc Eval Procedure: Operation Date: 11/27/23 14:30 Proposed Procedures p Incision and Drainage Left Breast - Marcus Benson DO Date/Time: 11/27/23 12:42 Surgeon: Janelle Arora MD Pre Op Diagnosis: left breast infection Patient Data Age: 48 Gender: F Height: 1.7 m Weight: 107.5 kg Last Vital Signs Temp 36.6 C 11/27/23 06:24 Pulse 72 11/27/23 06:24 Resp 16 11/27/23 06:24 BP 113/70 11/27/23 06:24 Pulse Ox 98 11/27/23 06:24 O2 Del Method Room Air 11/27/23 00:17 Allergies Allergy/AdvReac Type Severity Reaction Status Date / Time latex Allergy Rash Verified 11/27/23 13:32 buspirone AdvReac Intermediate Headache Verified 11/27/23 13:32 bupropion AdvReac Mild Agitated Verified 11/27/23 13:32 cephalexin [From Keflex] AdvReac Mild Other Verified 11/27/23 13:32 promethazine AdvReac Mild Agitated Verified 11/27/23 13:32 Home Medications Medication Instructions Recorded Confirmed Type ibuprofen 800 mg tablet 800 mg PO TID PRN pain #30 tabs 10/04/23 11/27/23 Rx Laboratory Tests 11/26/23 11/26/23 11/27/23 19:07 22:40 05:15 WBC 11.8 H K/mm3 10.8 H K/mm3 (4.5-10.0) (4.5-10.0) RBC 4.70 M/mm3 4.29 M/mm3 (4.2-5.4) (4.2-5.4) Hgb 14.4 g/dL 13.5 g/dL (12.0-15.0) (12.0-15.0) Hct 43.6 % 39.4 % (37.0-47.0) (37.0-47.0) MCV 92.8 fl 91.8 fl (80-100) (80-100) MCH 30.6 pg 31.5 pg (26-34) (26-34) MCHC 33.0 g/dl 34.3 g/dl (32-36) (32-36) RDW 13.0 % 13.2 % (11.5-14.5) (11.5-14.5) Plt Count 315 k/mm3 288 k/mm3 (150-375) (150-375) MPV 9.8 fl 9.7 fl (7.4-10.4) (7.4-10.4) Immature Gran % (Auto) 0.5 % 0.5 % (0-0.5) (0-0.5) Neut % (Auto) 48.6 % 40.3 L % (45.5-73.1) (45.5-73.1) Lymph % (Auto) 38.4 % 43.3 % (18.3-44.2) (18.3-44.2) [place] % (Auto) 9.3 H % 11.9 H % (2.6-8.5) (2.6-8.5) Eos % (Auto) 2.4 % 3.2 % (0-4.4) (0-4.4) Baso % (Auto) 0.8 % 0.8 % (0.2-1.2) (0.2-1.2) Lymph # (Auto) 4.55 H K/mm3 4.68 H K/mm3 (0.9-3.2) (0.9-3.2) [place] # (Auto) 1.1 H K/mm3 1.3 H K/mm3 (0.1-0.6) (0.1-0.6) Eos # (Auto) 0.3 K/mm3 0.4 H K/mm3 (0-0.3) (0-0.3) Baso # (Auto) 0.1 K/mm3 0.1 K/mm3 (0.0-0.1) (0.0-0.1) Abs Immat Gran (auto) 0.06 H K/mm3 0.05 H K/mm3 (0.00-0.031) (0.00-0.031) Absolute Neuts (auto) 5.8 K/mm3 4.4 K/mm3 (1.3-6.7) (1.3-6.7) Absolute Nucleated RBC 0.0 K/mm3 0.0 K/mm3 (0.0-0.012) (0.0-0.012) Nucleated RBC % 0.0 % 0.0 % (0.0-0.2) (0.0-0.2) PT 12.8 Seconds (11.1-14.7) INR 0.9 APTT 30.0 SECONDS (22.3-36.8) Sodium 136 L mmol/L 137 mmol/L (137-145) (137-145) Potassium 4.0 mmol/L 4.0 mmol/L (3.4-5.0) (3.4-5.0) Chloride 103 mmol/L 106 mmol/L (98-107) (98-107) Carbon Dioxide 27 mmol/L 23 mmol/L (22-30) (22-30) Anion Gap 6 L mmol/L 8 mmol/L (8-16) (8-16) BUN 12 mg/dL 11 mg/dL (7-17) (7-17) Creatinine 0.70 mg/dL 0.60 L mg/dL (0.7-1.0) (0.7-1.0) Estim Creat Clear Calc 103 ml/min 123 ml/min Estimated GFR > 60 > 60 (59 - ) (59 - ) Glucose 105 mg/dL 74 mg/dL (65-110) (65-110) Calcium 9.5 mg/dL 9.0 mg/dL (8.4-10.2) (8.4-10.2) Total Bilirubin 0.4 mg/dL (0.2-1.3) AST 31 U/L (14-36) ALT 23 U/L (6-35) Alkaline Phosphatase 111 U/L (38-126) Total Protein 7.0 g/dL (6.3-8.2) Albumin 3.9 g/dL (3.5-5.1) 11/27/23 05:17 WBC RBC Hgb Hct MCV MCH MCHC RDW Plt Count MPV Immature Gran % (Auto) Neut % (Auto) Lymph % (Auto) [place] % (Auto) Eos % (Auto) Baso % (Auto) Lymph # (Auto) [place] # (Auto)
--- NOTE | 2023-11-27 14:06 | WPDHPUPDATE1 ---
History and Physical Update Update Date/Time: 11/27/23 14:06 History and Physical has been reviewed, including an updated exam of the patient. There are NO changes in the patient's condition. Risks, benefits, and alternatives have been discussed and questions answered. Patient agrees to proceed with procedure.
--- NOTE | 2023-11-27 14:56 | W.PM.PROC2 ---
Procedure Note - Detailed Date of Procedure 11/27/23 Pre-op Diagnosis left breast abscess Post-op Diagnosis Same Procedure Performed Incision and drainage of complex left subareolar breast abscess Surgeon Marcus Benson, DO Anesthesia General and Local (0.5% bupivacaine with epinephrine) Indications This is a 48-year-old woman who presented with left breast swelling and pain. She has been experiencing this off and on for the past 2 months. She had gone to the emergency department 2 months ago and a needle aspiration was performed followed by a course of oral antibiotics. She felt like this was improving over the next couple weeks but then gradually began experiencing recurrent swelling and pain. An ultrasound was performed emergency department yesterday which showed evidence subareolar breast abscess. She was then admitted placed IV antibiotics. Discussions were made with the patient about treatment options and decision was made to proceed with incision and drainage of left breast abscess. Findings Incision and drainage of left breast abscess was performed. The patient was found to have a subareolar left breast abscess and this was slightly more prominent in the lower inner quadrant. A periareolar incision was made to dissect down into the abscess cavity. Multiple loculations were broken up and cultures were taken for aerobic and anaerobic culture and sensitivity. The area was then probed for any other abnormalities. It was then packed with half-inch iodoform. Description of Procedure Procedure as well as risks, benefits, and alternatives were discussed with the patient. Written consent was obtained and placed in chart prior to procedure. Patient was brought back to surgical suite. She was placed supine on operating table. Time-out was done to confirm patient and procedure. She was then intubated by the anesthesia department. Her left breast area was prepped and draped in sterile fashion using chlorhexidine prep. 0.5% bupivacaine with epinephrine was infiltrated locally around the periareolar region. A 2 cm curvilinear incision was then made in the inner lower edge of the periareolar skin. Electrocautery was used for hemostasis. A curved hemostat was then used to carefully dissect through the subcutaneous tissue until the abscess cavity was encountered. Purulence fluid was drained. A culture swab was used to obtain a culture for aerobic and anaerobic culture and sensitivity. The abscess cavity was completely drained and then careful dissection was used with finger dissection to break up any loculations. No deeper underlying abnormalities were noted. The area was then irrigated with sterile saline. Hemostasis appeared adequate no further abnormalities were noted. The wound was then packed with half-inch iodoform gauze. Fluff gauze and Medipore tape was then applied. The patient was then awakened from anesthesia, extubated, and transferred to recovery. Estimated Blood Loss 5 Packing Yes (Half-inch iodoform) Complications No immediate complications Condition Stable Disposition Floor [facility] Billing Surgery - Charge Forward: Surgery Billing
[2023-11-27] MEDS: LACTATED RINGERS 1,000 ML 30 ML IV CONT (14:59)
[2023-11-27] MEDS: MORPHINE SULFATE (*CRX) 4 MG/ML INJ IV PUSH (17:14)
[2023-11-28] VITALS (7 sets, daily range): BP systolic 116–156; BP diastolic 55–88; PULSE 66–82; RESP 16–18; TEMP 36.6–37.1; O2SAT 97–99
[2023-11-28] MEDS: HYDROcodone/acetaminophen (*CRX) 5-325 MG TABLET 1 TAB PO ×4 (04:14→22:51)
[2023-11-28] MEDS: MORPHINE SULFATE (*CRX) 4 MG/ML INJ IV PUSH ×3 (05:41→12:13)
[2023-11-28 05:53] LABS: Basophils Absolute Auto 0.1 K/mm3 (0.0-0.1); Basophils Percent Auto 0.3 % (0.2-1.2); Eosinophils Percent Auto 0.1 % (0-4.4); Hematocrit 40.2 % (37.0-47.0); Hemoglobin 13.3 g/dL (12.0-15.0); Immature Granulocyte Percent A 0.6 % (0-0.5); Lymphocytes Absolute Auto 2.71 K/mm3 (0.9-3.2); Lymphocytes Percent Auto 16.8 % (18.3-44.2); Mean Corpuscular HGB Conc 33.1 g/dl (32-36); Mean Corpuscular Hemoglobin 30.6 pg (26-34); Mean Corpuscular Volume 92.6 fl (80-100); Mean Platelet Volume 9.5 fl (7.4-10.4); Neutrophils Absolute Auto 12.3 K/mm3 (1.3-6.7); Neutrophils Percent Auto 76.2 % (45.5-73.1); Platelet Count Result 289 k/mm3 (150-375); Red Blood Count 4.34 M/mm3 (4.2-5.4); Red Cell Distribution Width 12.9 % (11.5-14.5); White Blood Count 16.1 K/mm3 (4.5-10.0)
[2023-11-28 06:14] LABS: Alanine Aminotransferase 24 U/L (6-35); Albumin Level 3.6 g/dL (3.5-5.1); Alkaline Phosphatase 95 U/L (38-126); Anion Gap 7 mmol/L (8-16); Aspartate Amino Transferase 35 U/L (14-36); Bilirubin,Total 0.4 mg/dL (0.2-1.3); Blood Urea Nitrogen 11 mg/dL (7-17); Carbon Dioxide 24 mmol/L (22-30); Chloride 105 mmol/L (98-107); Estimated CRCL calculation 123 ml/min; Estimated Glomerular Filt Rate > 60; Glucose 117 mg/dL (65-110); Potassium 4.1 mmol/L (3.4-5.0); Sodium 136 mmol/L (137-145)
[2023-11-28] MEDS: PANTOPRAZOLE 40 MG TABLET PO (08:25)
--- NOTE | 2023-11-28 10:01 | WPDANESPN ---
Anes - Prog Note Post-Op Date/Time: 11/28/23 10:01 Cardiovascular status: normal Respiratory status: normal Airway patency: baseline Mental status: baseline Post-Op hydration status: normal Vital Signs: Last Vital Signs Temp 36.9 C 11/28/23 09:25 Pulse 82 11/28/23 09:25 Resp 18 11/28/23 09:25 BP 132/62 11/28/23 09:25 Pulse Ox 98 11/28/23 09:25 O2 Del Method Room Air 11/28/23 09:42 O2 Flow Rate 8 11/27/23 15:10 Pain Score (VAS): 0 I/O: Intake & Output 11/27/23 11/28/23 11/28/23 23:59 07:59 15:59 Intake Total 790 1050 120 Output Total 700 Balance 790 350 120 Laboratory Tests 11/28/23 05:35 11/28/23 05:35 11/28/23 05:35 WBC 16.1 H RBC 4.34 Hgb 13.3 Hct 40.2 MCV 92.6 MCH 30.6 MCHC 33.1 RDW 12.9 Plt Count 289 MPV 9.5 Immature Gran % (Auto) 0.6 H Neut % (Auto) 76.2 H Lymph % (Auto) 16.8 L [place] % (Auto) 6.0 Eos % (Auto) 0.1 Baso % (Auto) 0.3 Lymph # (Auto) 2.71 [place] # (Auto) 1.0 H Eos # (Auto) 0.0 Baso # (Auto) 0.1 Abs Immat Gran (auto) 0.10 H Absolute Neuts (auto) 12.3 H Absolute Nucleated RBC 0.0 Nucleated RBC % 0.0 Sodium 136 L Potassium 4.1 Chloride 105 Carbon Dioxide 24 Anion Gap 7 L BUN 11 Creatinine 0.60 L Estim Creat Clear Calc 123 Estimated GFR > 60 Glucose 117 H Calcium 9.0 Total Bilirubin 0.4 AST 35 ALT 24 Alkaline Phosphatase 95 Total Protein 6.0 L Albumin 3.6 Microbiology 11/27/23 14:48 Breast Left Anaerobic Culture - Preliminary Post-procedural complaints: none Patient Feedback: Patient satisfied with anesthetic care.
--- NOTE | 2023-11-28 10:48 | PM.IMPN ---
Progress Note: A&P Assessment and Plan (1) Abscess of left breast: Code(s): N61.1 - Abscess of the breast and nipple Status: Acute Assessment and Plan: Abscess of the left breast under the nipple that is recurrent from 10/04/2023 Started on vancomycin General surgery consult Patient made NPO I and D on 11/27/23. Wound culture growing gram positive cocci (2) Breast pain, left: Code(s): N64.4 - Mastodynia Status: Acute Assessment and Plan: analgesics as needed. (3) Deep vein thrombosis (DVT) of right lower extremity: Code(s): I82.401 - Acute embolism and thrombosis of unspecified deep veins of right lower extremity Status: Acute Assessment and Plan: Patient is no longer on anticoagulation (4) Tobacco abuse: Code(s): Z72.0 - Tobacco use Status: Acute Assessment and Plan: Patient currently vapes and smokes a pack of cigarette it once a week (5) GERD (gastroesophageal reflux disease): Code(s): K21.9 - Gastro-esophageal reflux disease without esophagitis Status: Acute Assessment and Plan: PPI Subjective Date/time seen: 11/28/23 10:48 Interval history: Patient having pretty significant pain in her left breast. Patient's wound is in dressing and I was unable to visualize it. She is having some discomfort and a knees due to the pain but otherwise denies nausea, vomiting, body aches and chills. Exam Narrative: GENERAL: Comfortable, no acute distress HENMT: moist mucous membranes EYES: EOM intact b/l NECK: no lymphadenopathy RESPIRATORY: clear to auscultation CARDIO: RRR Breast: Left breast with dressing on it. Dressing is dry and intact. Objective Data Vital Signs Vital Signs: Vital Signs - 24 hr 11/27/23 13:33 11/27/23 14:59 11/27/23 15:10 Temperature 99.0 F 97.7 F Pulse Rate 75 94 72 Respiratory Rate 16 14 20 Blood Pressure 151/80 H 149/71 H 129/71 Pulse Oximetry 98 100 100 Oxygen Delivery Room Air Simple Face Mask Simple Face Mask Oxygen Flow Rate 8 8 11/27/23 15:25 11/27/23 15:40 11/27/23 15:55 Temperature Pulse Rate 74 81 78 Respiratory Rate 12 12 14 Blood Pressure 143/74 H 143/74 H 134/75 Pulse Oximetry 97 97 98 Oxygen Delivery Room Air Room Air Room Air Oxygen Flow Rate 11/27/23 16:15 11/27/23 16:25 11/27/23 16:44 Temperature 98.7 F 98.3 F Pulse Rate 73 84 Respiratory Rate 16 16 Blood Pressure 148/77 H 154/78 H Pulse Oximetry 98 99 97 Oxygen Delivery Room Air Oxygen Flow Rate 11/27/23 23:30 11/28/23 01:35 11/28/23 06:57 Temperature 98.0 F 97.8 F 97.8 F Pulse Rate 82 69 74 Respiratory Rate 16 16 16 Blood Pressure 122/75 116/61 131/67 Pulse Oximetry 97 97 99 Oxygen Delivery Oxygen Flow Rate 11/28/23 08:00 11/28/23 09:25 11/28/23 09:42 Temperature 98.5 F Pulse Rate 82 Respiratory Rate 18 Blood Pressure 132/62 Pulse Oximetry 98 Oxygen Delivery Room Air Room Air Oxygen Flow Rate Intake/Output Intake/Output: Intake & Output 11/25/23 11/26/23 11/27/23 11/28/23 23:59 23:59 23:59 23:59 Intake Total 2410 1170 Output Total 700 Balance 2410 470 Meds/Results Medications: Active Medications Generic Name Dose Route Start Last Admin Trade Name Freq PRN Reason Stop Dose Admin Hydrocodone Bitart/Acetaminophen 1 tab 11/26/23 22:37 11/28/23 08:25 Hydrocodone/Acetaminophen (*Crx) 5-325 Mg Tablet PO 1 tab Q4H PRN Administration Pain Rated 4-6 Diphenhydramine HCl 25 mg 11/27/23 15:59 Diphenhydramine Hcl Inj 50 Mg/Ml Vial IV PUSH Q6H PRN Itching Vancomycin HCl 1,500 mg in 500 mls @ 250 mls/hr 11/27/23 00:00 11/28/23 01:05 Vancomycin 1,500 Mg/Ns 500 Ml IVPB Infused Q12H CARLITA Infusion Ibuprofen 600 mg 11/27/23 09:05 11/27/23 10:02 Ibuprofen 600 Mg Tablet PO 600 mg Q6H PRN Administration Pain Rated 1-3 Morphine Sul
[2023-11-28 11:41] LABS: Vancomycin Trough 10.1 ug/mL (10.0-20.0)
--- NOTE | 2023-11-28 12:20 | PM.PNGS ---
Progress Note: A&P Assessment and Plan (1) Abscess of left breast: Code(s): N61.1 - Abscess of the breast and nipple Status: Acute Assessment and Plan: Continue daily packing changes. Wound cultures pending. Possibly home tomorrow. Subjective Subjective Date/Time Seen: 11/28/23 12:20 Interval history: Doing well. NO fevers. Pain still present but slightly improving. Exam Chest: Other: Left breast abscess packing removed. No purulent drainage. No erythema. Objective Data Vital Signs Vital Signs: Vital Signs - 24 hr 11/27/23 13:33 11/27/23 14:59 11/27/23 15:10 Temperature 37.2 C 36.5 C Pulse Rate 75 94 72 Respiratory Rate 16 14 20 Blood Pressure 151/80 H 149/71 H 129/71 Pulse Oximetry 98 100 100 Oxygen Delivery Room Air Simple Face Mask Simple Face Mask Oxygen Flow Rate 8 8 11/27/23 15:25 11/27/23 15:40 11/27/23 15:55 Temperature Pulse Rate 74 81 78 Respiratory Rate 12 12 14 Blood Pressure 143/74 H 143/74 H 134/75 Pulse Oximetry 97 97 98 Oxygen Delivery Room Air Room Air Room Air Oxygen Flow Rate 11/27/23 16:15 11/27/23 16:25 11/27/23 16:44 Temperature 37.1 C 36.8 C Pulse Rate 73 84 Respiratory Rate 16 16 Blood Pressure 148/77 H 154/78 H Pulse Oximetry 98 99 97 Oxygen Delivery Room Air Oxygen Flow Rate 11/27/23 23:30 11/28/23 01:35 11/28/23 06:57 Temperature 36.7 C 36.6 C 36.6 C Pulse Rate 82 69 74 Respiratory Rate 16 16 16 Blood Pressure 122/75 116/61 131/67 Pulse Oximetry 97 97 99 Oxygen Delivery Oxygen Flow Rate 11/28/23 08:00 11/28/23 09:25 11/28/23 09:42 Temperature 36.9 C Pulse Rate 82 Respiratory Rate 18 Blood Pressure 132/62 Pulse Oximetry 98 Oxygen Delivery Room Air Room Air Oxygen Flow Rate Intake/Output Intake/Output: Intake & Output 11/25/23 11/26/23 11/27/23 11/28/23 23:59 23:59 23:59 23:59 Intake Total 2410 1170 Output Total 700 Balance 2410 470 Meds/Results Medications: Active Medications Generic Name Dose Route Start Last Admin Trade Name Freq PRN Reason Stop Dose Admin Hydrocodone Bitart/Acetaminophen 1 tab 11/26/23 22:37 11/28/23 08:25 Hydrocodone/Acetaminophen (*Crx) 5-325 Mg Tablet PO 1 tab Q4H PRN Administration Pain Rated 4-6 Diphenhydramine HCl 25 mg 11/27/23 15:59 Diphenhydramine Hcl Inj 50 Mg/Ml Vial IV PUSH Q6H PRN Itching Vancomycin HCl 1,500 mg in 500 mls @ 250 mls/hr 11/27/23 00:00 11/28/23 01:05 Vancomycin 1,500 Mg/Ns 500 Ml IVPB Infused Q12H CARLITA Infusion Ibuprofen 600 mg 11/27/23 09:05 11/27/23 10:02 Ibuprofen 600 Mg Tablet PO 600 mg Q6H PRN Administration Pain Rated 1-3 Morphine Sulfate 4 mg 11/26/23 22:37 11/28/23 12:13 Morphine Sulfate (*Crx) 4 Mg/Ml Inj IV PUSH 4 mg Q2H PRN Administration Pain Rated 7-10 Naloxone HCl 0.1 mg 11/27/23 15:59 Naloxone Hcl 0.4 Mg/Ml Vial IV PUSH Q2M PRN Opiate Reversal Ondansetron HCl 4 mg 11/26/23 22:37 Ondansetron Inj 4 Mg/2 Ml Vial IV PUSH Q4H PRN Nausea Pantoprazole Sodium 40 mg 11/27/23 09:00 11/28/23 08:25 Pantoprazole 40 Mg Tablet PO 40 mg QAM CARLITA Administration Radiology Results: ITS Impressions Breast Ultrasound 11/26/23 21:14 IMPRESSION: 1. 2.8 cm subareolar abscess in left breast, worsened from 1.8 cm on 10/04/2023. Labs Labs: Laboratory Results - last 24 hr 11/28/23 11/28/23 05:35 11:13 WBC 16.1 H RBC 4.34 Hgb 13.3 Hct 40.2 MCV 92.6 MCH 30.6 MCHC 33.1 RDW 12.9 Plt Count 289 MPV 9.5 Immature Gran % (Auto) 0.6 H Neut % (Auto) 76.2 H Lymph % (Auto) 16.8 L [place] % (Auto) 6.0 Eos % (Auto) 0.1 Baso % (Auto) 0.3 Lymph # (Auto) 2.71 [place] # (Auto) 1.0 H Eos # (Auto) 0.0 Baso # (Auto) 0.1 Abs Immat Gran (auto) 0.10 H Absolute Neuts (auto) 12.3 H Absolute Nucleated RBC 0.0 Nucleated RBC % 0.0 Sodium
--- NOTE | 2023-11-28 12:40 | PC.NURSE ---
On 11/28/23, the student, [Ryan Rothman], provided care and completed [facility] documentation on this patient. I have reviewed the student's documentation and agree with the findings.
[2023-11-28] MEDS: VANCOMYCIN 1,500 MG/NS 500 ML 1,500 MG/500 ML BAG 250 MG IVPB ×2 (12:56→23:15)
[2023-11-29 05:37] LABS: Hematocrit 39.2 % (37.0-47.0); Hemoglobin 12.9 g/dL (12.0-15.0); Mean Corpuscular HGB Conc 32.9 g/dl (32-36); Mean Corpuscular Hemoglobin 30.6 pg (26-34); Mean Corpuscular Volume 93.1 fl (80-100); Mean Platelet Volume 9.3 fl (7.4-10.4); Platelet Count Result 266 k/mm3 (150-375); Red Blood Count 4.21 M/mm3 (4.2-5.4); Red Cell Distribution Width 13.2 % (11.5-14.5); White Blood Count 12.2 K/mm3 (4.5-10.0)
[2023-11-29 05:47] LABS: Anion Gap 6 mmol/L (8-16); Blood Urea Nitrogen 12 mg/dL (7-17); Calcium 8.4 mg/dL (8.4-10.2); Carbon Dioxide 25 mmol/L (22-30); Chloride 106 mmol/L (98-107); Estimated CRCL calculation 107 ml/min; Estimated Glomerular Filt Rate > 60; Glucose 76 mg/dL (65-110); Potassium 3.8 mmol/L (3.4-5.0); Sodium 137 mmol/L (137-145)
[2023-11-29] MEDS: HYDROcodone/acetaminophen (*CRX) 5-325 MG TABLET 1 TAB PO ×2 (08:04→13:17)
--- NOTE | 2023-11-29 08:36 | PM.PNGS ---
Progress Note: A&P Assessment and Plan (1) Abscess of left breast: Code(s): N61.1 - Abscess of the breast and nipple Status: Acute Assessment and Plan: Cultures still pending. OK to discharge today with broad spectrum coverage per Hospitalist. Continue local wound care. Follow up in office in 2 weeks. Subjective Subjective Date/Time Seen: 11/29/23 08:36 Interval history: Pain controlled. Afebrile. Exam Chest: Other: left breast abscess wound healing well. No purulent drainage. No erythema. Objective Data Vital Signs Vital Signs: Vital Signs - 24 hr 11/28/23 09:25 11/28/23 09:42 11/28/23 13:58 Temperature 36.9 C 36.8 C Pulse Rate 82 66 Respiratory Rate 18 18 Blood Pressure 132/62 138/60 Pulse Oximetry 98 99 Oxygen Delivery Room Air 11/28/23 18:46 11/28/23 20:00 11/28/23 20:38 Temperature 37.1 C 36.8 C Pulse Rate 75 70 Respiratory Rate 18 18 Blood Pressure 134/55 L 156/88 H Pulse Oximetry 98 99 Oxygen Delivery Room Air 11/28/23 21:13 Temperature Pulse Rate Respiratory Rate Blood Pressure Pulse Oximetry 97 Oxygen Delivery Room Air Intake/Output Intake/Output: Intake & Output 11/26/23 11/27/23 11/28/23 11/29/23 23:59 23:59 23:59 23:59 Intake Total 2410 2230 500 Output Total 700 Balance 2410 1530 500 Meds/Results Medications: Active Medications Generic Name Dose Route Start Last Admin Trade Name Freq PRN Reason Stop Dose Admin Hydrocodone Bitart/Acetaminophen 1 tab 11/26/23 22:37 11/29/23 08:04 Hydrocodone/Acetaminophen (*Crx) 5-325 Mg Tablet PO 1 tab Q4H PRN Administration Pain Rated 4-6 Diphenhydramine HCl 25 mg 11/27/23 15:59 Diphenhydramine Hcl Inj 50 Mg/Ml Vial IV PUSH Q6H PRN Itching Vancomycin HCl 1,500 mg in 500 mls @ 250 mls/hr 11/27/23 00:00 11/29/23 01:15 Vancomycin 1,500 Mg/Ns 500 Ml IVPB Infused Q12H CARLITA Infusion Ibuprofen 600 mg 11/27/23 09:05 11/27/23 10:02 Ibuprofen 600 Mg Tablet PO 600 mg Q6H PRN Administration Pain Rated 1-3 Morphine Sulfate 4 mg 11/26/23 22:37 11/28/23 12:13 Morphine Sulfate (*Crx) 4 Mg/Ml Inj IV PUSH 4 mg Q2H PRN Administration Pain Rated 7-10 Naloxone HCl 0.1 mg 11/27/23 15:59 Naloxone Hcl 0.4 Mg/Ml Vial IV PUSH Q2M PRN Opiate Reversal Ondansetron HCl 4 mg 11/26/23 22:37 Ondansetron Inj 4 Mg/2 Ml Vial IV PUSH Q4H PRN Nausea Pantoprazole Sodium 40 mg 11/27/23 09:00 11/28/23 08:25 Pantoprazole 40 Mg Tablet PO 40 mg QAM CARLITA Administration Radiology Results: ITS Impressions Breast Ultrasound 11/26/23 21:14 IMPRESSION: 1. 2.8 cm subareolar abscess in left breast, worsened from 1.8 cm on 10/04/2023. Labs Labs: Laboratory Results - last 24 hr 11/28/23 11/29/23 11/29/23 11:13 05:24 05:24 WBC 12.2 H RBC 4.21 Hgb 12.9 Hct 39.2 MCV 93.1 MCH 30.6 MCHC 32.9 RDW 13.2 Plt Count 266 MPV 9.3 Sodium 137 Potassium 3.8 Chloride 106 Carbon Dioxide 25 Anion Gap 6 L BUN 12 Creatinine 0.70 0.70 Estim Creat Clear Calc 107 Estimated GFR Glucose Calcium Vancomycin Trough 10.1 11/29/23 11/29/23 05:24 05:24 WBC RBC Hgb Hct MCV MCH MCHC RDW Plt Count MPV Sodium Potassium Chloride Carbon Dioxide Anion Gap BUN Creatinine Estim Creat Clear Calc 107 Estimated GFR > 60 > 60 Glucose 76 Calcium 8.4 Vancomycin Trough
[2023-11-29 09:27] VITALS: BP 143/77; PULSE 65; RESP 18; TEMP 36.9; O2SAT 98
--- NOTE | 2023-11-29 11:25 | PM.DS ---
DS: Admitting Diagnosis Discharge Date 11/29/23 Admitting Diagnosis L. Breast abscess DS: Discharge Diagnosis Discharge Diagnosis (1) Abscess of left breast: Code(s): N61.1 - Abscess of the breast and nipple Status: Acute (2) Breast pain, left: Code(s): N64.4 - Mastodynia Status: Acute (3) Deep vein thrombosis (DVT) of right lower extremity: Code(s): I82.401 - Acute embolism and thrombosis of unspecified deep veins of right lower extremity Status: Acute (4) Tobacco abuse: Code(s): Z72.0 - Tobacco use Status: Acute (5) GERD (gastroesophageal reflux disease): Code(s): K21.9 - Gastro-esophageal reflux disease without esophagitis Status: Acute DS: Summary Hospital Course Hospital Course: This is a 38-year-old female past medical history of recurrent left breast abscess, hypertension, DVT, GERD and tobacco dependence who presents to the ED on 11/26/2023 due to pain in her left breast. She was recently seen in September of 2023 where she had a left breast abscess that was drained although The culture did not grow anything. Ultrasound of the left breast revealed a 2.8 cm subareolar abscess in the left breast worsened from 10/04/2023. General surgery was consulted. Patient had an I and D on 11/27/2023. She had been started on vancomycin that was then de celebrated to Bactrim. To follow-up with General surgery as an outpatient. Will do antibiotic therapy for 10 days. Time Spent with Patient Time attestation: Total time spent providing and/or coordinating discharge services: Exam Narrative: GENERAL: Comfortable, no acute distress HENMT: moist mucous membranes EYES: EOM intact b/l NECK: no lymphadenopathy RESPIRATORY: clear to auscultation CARDIO: RRR Breast: Left breast with dressing on it. Dressing is dry and intact. DS: Data Data Completed and Pending Labs on day of discharge: Labs from last 24 hours 11/29/23 11/29/23 11/29/23 05:24 05:24 05:24 WBC RBC Hgb Hct MCV MCH MCHC RDW Plt Count MPV Sodium Potassium Chloride Carbon Dioxide Anion Gap BUN Creatinine 0.70 Estim Creat Clear Calc 107 107 Estimated GFR > 60 > 60 Glucose 76 Calcium 8.4 Vancomycin Trough 11/29/23 11/28/23 05:24 11:13 WBC 12.2 H RBC 4.21 Hgb 12.9 Hct 39.2 MCV 93.1 MCH 30.6 MCHC 32.9 RDW 13.2 Plt Count 266 MPV 9.3 Sodium 137 Potassium 3.8 Chloride 106 Carbon Dioxide 25 Anion Gap 6 L BUN 12 Creatinine 0.70 Estim Creat Clear Calc Estimated GFR Glucose Calcium Vancomycin Trough 10.1 Preliminary micro results at discharge 11/27/23 14:48 Anaerobic Culture - Preliminary Breast Left Aerobic Culture - Preliminary Discharge Plan Discharge Attending physician on discharge: Raj Rodriguez Consulting providers: Sharon Hedrick; Marcus Benson Discharging Clinician: Reina Llamas Patient Disposition: Home, Self-Care Activity: other - see discharge instructions Diet: regular Wound Care Instructions: other - see discharge instructions Discharge Instructions: Wound care instructions: Change packing daily until only 2-3 inches fit into open wound, then simply change gauze bandage daily until completely healed. OK to shower daily Call office if noticing increasing swelling, drainage, or redness Continue light activity for 3-5 days then may resume regular activity as tolerated Antibiotics: Bactrim twice daily through 12/06/2023 Patient Instructions: Antibiotic Form, How to Stop Smoking (DC) Stand Alone Forms: General Discharge Information Follow-up/Referrals: Marcus Benson DO [Physician] - 2 Weeks Discharge Medications: New hydrocodone-acetaminophen 5-325 mg tablet 1 tablet PO Q4H PRN (Reason: pain) Qty: 10 0RF sulfamethoxazole-trimethoprim 800-160 mg tablet 1 tab
[2023-11-29] MEDS: PANTOPRAZOLE 40 MG TABLET PO (11:29)
[2023-11-29] MEDS: VANCOMYCIN 1,500 MG/NS 500 ML 1,500 MG/500 ML BAG 250 MG IVPB (11:38)
[2023-11-29] MEDS: SULFAMETHOXAZOLE/TRIMETHOPRIM 800/160 MG DS TABLET 2 TAB PO (13:17)
--- NOTE | 2023-12-04 10:16 | PC.NURSE ---
Anaerobic culture- Prevotella species. Aerobic Culture- Actinomyces spec. C. TAYLA Llamas. Pt dc on sulfa-tri
== END 2023-11-29 13:48 | disposition home or self-care (01) | DRG 385 ==
LOC: ANHED 22:48 → ANH2MED 23:44
PROVIDERS: Surgery; Admitting Provider Internal Medicine; Emergency Provider Physician Assistant; Visit Provider Internal Medicine Critical Care Medicine
PROC: 0H9U0ZZ Drainage of Left Breast, Open Approach (ICD-10-PCS; principal; 2023-11-27 14:30)
DX: N61.1 Abscess of the breast and nipple (principal); I10 Essential (primary) hypertension; K21.9 Gastro-esophageal reflux disease without esophagitis; K58.9 Irritable bowel syndrome, unspecified; F17.290 Nicotine dependence, other tobacco product, uncomplicated; M19.90 Unspecified osteoarthritis, unspecified site; F41.9 Anxiety disorder, unspecified; Z86.718 Personal history of other venous thrombosis and embolism
CPT/HCPCS: 36415; 76642; 80048; 80053; 80202; 82565; 85025; 85027; 85610; 85730; 87070; 87075; 87076; 87185; 87205; 99285; A9270; G0378; J1100; J2250; J2270; J2405; J2704; J2710; J3010; J3370; J7120

== ENCOUNTER 2024-03-09 22:12 | Emergency (ER) | payer BC, SELFPAY ==
[2024-03-09 22:19] VITALS: BP 148/79; PULSE 110; RESP 20; TEMP 36.3; O2SAT 98
[2024-03-09] MEDS: SODIUM CHLORIDE 0.9% IV 1,000 ML 999 ML IV CONT (23:34)
[2024-03-09 23:35] VITALS: PULSE 78
[2024-03-09 23:36] VITALS: BP 145/77; PULSE 85; RESP 16; TEMP 36.6; O2SAT 99
--- NOTE | 2024-03-10 01:19 | ED.GENADULT ---
HPI - General Adult General Chief complaint: Unspecified Stated complaint: ate edible, having reaction Time Seen by Provider: 03/09/24 23:27 Source: patient Mode of arrival: EMS Limitations: intoxication History of Present Illness HPI narrative: This is a 48-year-old female that presents to the emergency department for cannabis intoxication. Reports she ate a CBD gummy earlier tonight. Reports having a bad reaction to this. This is the first time she has used these gummies. She has felt very anxious and not right . Denies chest pain, shortness of breath, focal numbness or weakness. Related Data Home Medications Medication Instructions Recorded Confirmed No Home Medications 01/02/24 01/02/24 Allergies Allergy/AdvReac Type Severity Reaction Status Date / Time latex Allergy Rash Verified 12/31/23 13:15 buspirone AdvReac Intermediate Headache Verified 12/31/23 13:15 bupropion AdvReac Mild Agitated Verified 12/31/23 13:15 cephalexin [From Keflex] AdvReac Mild Other Verified 12/31/23 13:15 promethazine AdvReac Mild Agitated Verified 12/31/23 13:15 Review of Systems Review of Systems: CONSTITUTIONAL: Denies fever. EYES: Denies visual changes GASTROINTESTINAL: Denies vomiting NEUROLOGIC: Denies numbness, or weakness. PSYCHIATRIC: Reports anxiety All systems reviewed & are unremarkable except as noted in HPI and below PMFSH Past Medical History Medical History (Updated 03/10/24 @ 01:20 by Tiana Hsieh PA-C) Abscess of breast, right Anxiety Arthritis Encounter for surgical aftercare following surgery on the skin and subcutaneous tissue GERD (gastroesophageal reflux disease) H/O: HTN (hypertension) History of ovarian cyst Hx gestational diabetes IBS (irritable bowel syndrome) Surgical History Surgical History (Updated 12/31/23 @ 13:14 by Leeann Kumar MA) History of breast surgery June 2019 - Ultrasound guided aspiration of right breast abscess. History of dilation and curettage History of incision and drainage Incision and drainage of complex left subareolar breast abscess 11/27/23 [facility] History of primary section x3 Family History Family History Father Diabetes mellitus Hypertension Mother Hypertension Social History Social History (Reviewed 12/31/23 @ 13:14 by WAQAR Sterling Social History: The patient is and she has 3 children. Currently under financial burden with low income and no insurance. 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 She is a former smoker. She drinks socially. No marijuana or illicit drugs. She does not have any power tax attorney Code status full code Smoking packs per day: 0.2 Smoking cigarettes per day: 4.0 Years smoked: 28 Smoking pack-years: 5.60 Smoking status: Current every day smoker Tobacco type: cigarettes and e-cigarettes/vaping Second hand tobacco smoke exposure: Yes Additional smoking assessment comments: Patient still vapes Alcohol intake: current Drinks per week: 1 Alcohol use details: Occasional/social. Substance use: never Substance use type: does not use Other substance usage details: rare drinker Do You Feel Safe in your Home?: Yes Lack of Transportation: YES Lack of Food: Sometimes True Current Housing: I Have Housing Concerned About Future Housing: YES Difficulty Paying Gas/Electric Bills: YES Difficulty Paying for Meds: YES Currently Unemployed: No Education: Trade/Vocational Certificate Difficulty w/ Childcare or Family Care: No Living arrangements: with family Additional living arrangements comments: With her cousin who has Autism. Occupation/Education: occupation Additional occupation/education comments: [employer]. Gender identity (if verbalized by the patient): Female Spiritual care concerns: No Agree to blood products: Yes Exam Narrative: GENERAL: Well-appearing, wel
[2024-03-10 01:26] VITALS: BP 148/82; PULSE 67; RESP 15; TEMP 36.8; O2SAT 100
== END 2024-03-10 01:26 | disposition home or self-care (01) ==
PROVIDERS: Emergency Provider Physician Assistant
DX: F12.920 Cannabis use, unspecified with intoxication, uncomplicated (principal); I10 Essential (primary) hypertension; M19.90 Unspecified osteoarthritis, unspecified site; K21.9 Gastro-esophageal reflux disease without esophagitis; K58.9 Irritable bowel syndrome, unspecified; Z87.891 Personal history of nicotine dependence
CPT/HCPCS: 96360; 99283; 99284; J7030

== ENCOUNTER 2024-06-06 10:13 | Emergency (ER) | payer BC, SELFPAY ==
[2024-06-06 10:59] VITALS: BP 145/69; PULSE 88; RESP 18; TEMP 37.2; O2SAT 98
--- NOTE | 2024-06-06 11:54 | ED.EAR ---
HPI - Ear Problem General Chief complaint: Ear Stated complaint: L ear infection Time Seen by Provider: 06/06/24 11:31 History of Present Illness HPI Narrative: 48-year-old female presenting to the emergency department for evaluation for left-sided ear pain and left-sided dental pain. Patient reports she has had symptoms for the past 2 days. Related Data Allergies Allergy/AdvReac Type Severity Reaction Status Date / Time latex Allergy Rash Verified 12/31/23 13:15 buspirone AdvReac Intermediate Headache Verified 12/31/23 13:15 bupropion AdvReac Mild Agitated Verified 12/31/23 13:15 cephalexin [From Keflex] AdvReac Mild Other Verified 12/31/23 13:15 promethazine AdvReac Mild Agitated Verified 12/31/23 13:15 Review of Systems Review of Systems: All systems reviewed & are unremarkable except as noted in HPI and below PMFSH Past Medical History Medical History (Updated 06/06/24 @ 11:57 by Giles Roche MD) Abscess of breast, right Anxiety Arthritis Encounter for surgical aftercare following surgery on the skin and subcutaneous tissue GERD (gastroesophageal reflux disease) H/O: HTN (hypertension) History of ovarian cyst Hx gestational diabetes IBS (irritable bowel syndrome) Surgical History Surgical History (Updated 12/31/23 @ 13:14 by Leeann Kumar MA) History of breast surgery June 2019 - Ultrasound guided aspiration of right breast abscess. History of dilation and curettage History of incision and drainage Incision and drainage of complex left subareolar breast abscess 11/27/23 [facility] History of primary section x3 Family History Family History Father Diabetes mellitus Hypertension Mother Hypertension Social History Social History Social History: The patient is and she has 3 children. Currently under financial burden with low income and no insurance. She works as a [employer] at [employer]. She is a former smoker. She drinks socially. No marijuana or illicit drugs. She does not have any power deputy commonwealth's attorney Code status full code Smoking packs per day: 0.2 Smoking cigarettes per day: 4.0 Years smoked: 28 Smoking pack-years: 5.60 Smoking status: Current every day smoker Tobacco type: cigarettes and e-cigarettes/vaping Second hand tobacco smoke exposure: Yes Additional smoking assessment comments: Patient still vapes Alcohol intake: current Drinks per week: 1 Alcohol use details: Occasional/social. Substance use: never Substance use type: does not use Other substance usage details: rare drinker Do You Feel Safe in your Home?: Yes Lack of Transportation: YES Lack of Food: Sometimes True Current Housing: I Have Housing Concerned About Future Housing: YES Difficulty Paying Gas/Electric Bills: YES Difficulty Paying for Meds: YES Currently Unemployed: No Education: Trade/Vocational Certificate Difficulty w/ Childcare or Family Care: No Living arrangements: with family Additional living arrangements comments: With her cousin who has Autism. Occupation/Education: occupation Additional occupation/education comments: [employer]. Gender identity (if verbalized by the patient): Female Spiritual care concerns: No Agree to blood products: Yes Exam Narrative: APPEARANCE: Well appearing, no pain, no distress, well-nourished. HEAD: normocephalic, atraumatic. EYES: PERRLA/EOMI, conjunctivae clear. NOSE: Normal no drainage EARS: Mild TM erythema on the left, dental caries THROAT: Pharynx clear, no exudate. NECK: Supple. No adenopathy, no masses. RESPIRATORY: Airway patent, respirations nonlabored. Clear to auscultation bilaterally, no rales, rhonchi, wheezing. CARDIOVASCULAR: Regular rate and rhythm without murmurs rubs or gallops. ABDOMINAL: Soft, nontender, nondistended, normal bowel sounds MUSCULOSKELETAL:
[2024-06-06] MEDS: AMOXICILLIN/CLAVULANATE K 875-125 MG TAB 1 TABLET PO (12:04)
== END 2024-06-06 12:08 | disposition home or self-care (01) ==
PROVIDERS: Emergency Provider Emergency Medicine
DX: K08.89 Other specified disorders of teeth and supporting structures (principal); H92.02 Otalgia, left ear; I10 Essential (primary) hypertension; M19.90 Unspecified osteoarthritis, unspecified site; K21.9 Gastro-esophageal reflux disease without esophagitis; K58.9 Irritable bowel syndrome, unspecified; F17.210 Nicotine dependence, cigarettes, uncomplicated; F17.290 Nicotine dependence, other tobacco product, uncomplicated
CPT/HCPCS: 99283; A9270

== ENCOUNTER 2024-07-16 11:28 | Emergency (ER) | payer BC, SELFPAY ==
[2024-07-16 11:39] VITALS: BP 152/73; PULSE 102; RESP 18; TEMP 36.3; O2SAT 98
--- NOTE | 2024-07-16 13:14 | ED.GENADULT ---
HPI - General Adult General Chief complaint: Unspecified Stated complaint: ST Time Seen by Provider: 07/16/24 13:14 Focused HPI: This is a 48-year-old female who presents to the ED for chief complaint of sore throat beginning 3 days ago. Reports URI symptoms including sinus congestion, headache, dry cough for the past week. States that over the last week she has been around several children. Denies productive cough, fevers, chills, chest pain, shortness of breath, abdominal pain, nausea, vomiting. GENERAL: Well-appearing, well-nourished, and in no acute distress. HEAD: Normocephalic, atraumatic. CHEST: Clear to auscultation. No respiratory distress. HEART: Regular rate and rhythm. NEURO: Alert and oriented x3. Patient screened in triage and initial orders placed. Additional care and disposition to be based upon diagnostic testing and treatment. Source: patient Mode of arrival: ambulatory Limitations: no limitations Related Data Allergies Allergy/AdvReac Type Severity Reaction Status Date / Time latex Allergy Rash Verified 12/31/23 13:15 buspirone AdvReac Intermediate Headache Verified 12/31/23 13:15 bupropion AdvReac Mild Agitated Verified 12/31/23 13:15 cephalexin [From Keflex] AdvReac Mild Other Verified 12/31/23 13:15 promethazine AdvReac Mild Agitated Verified 12/31/23 13:15 Review of Systems Review of Systems: All systems as dictated in HPI PMFSH Past Medical History Medical History (Updated 07/16/24 @ 14:38 by Tay Dang PA-C) Abscess of breast, right Anxiety Arthritis Encounter for surgical aftercare following surgery on the skin and subcutaneous tissue GERD (gastroesophageal reflux disease) H/O: HTN (hypertension) History of ovarian cyst Hx gestational diabetes IBS (irritable bowel syndrome) Surgical History Surgical History (Updated 12/31/23 @ 13:14 by Leeann Kumar, EDEL) History of breast surgery June 2019 - Ultrasound guided aspiration of right breast abscess. History of dilation and curettage History of incision and drainage Incision and drainage of complex left subareolar breast abscess 11/27/23 [facility] History of primary section x3 Family History Family History Father Diabetes mellitus Hypertension Mother Hypertension Social History Social History Social History: The patient is and she has 3 children. Currently under financial burden with low income and no insurance. She works as a [employer] at [employer]. She is a former smoker. She drinks socially. No marijuana or illicit drugs. She does not have any power trade mark attorney Code status full code Smoking packs per day: 0.2 Smoking cigarettes per day: 4.0 Years smoked: 28 Smoking pack-years: 5.60 Smoking status: Current every day smoker Tobacco type: cigarettes and e-cigarettes/vaping Second hand tobacco smoke exposure: Yes Additional smoking assessment comments: Patient still vapes Alcohol intake: current Drinks per week: 1 Alcohol use details: Occasional/social. Substance use: never Substance use type: does not use Other substance usage details: rare drinker Do You Feel Safe in your Home?: Yes Lack of Transportation: YES Lack of Food: Sometimes True Current Housing: I Have Housing Concerned About Future Housing: YES Difficulty Paying Gas/Electric Bills: YES Difficulty Paying for Meds: YES Currently Unemployed: No Education: Trade/Vocational Certificate Difficulty w/ Childcare or Family Care: No Living arrangements: with family Additional living arrangements comments: With her cousin who has Autism. Occupation/Education: occupation Additional occupation/education comments: [employer]. Gender identity (if verbalized by the patient): Female Spiritual care concerns: No Agree to blood products: Yes Exam Narrative:
[2024-07-16 13:50] LABS: Strep Group A RT-PCR NOT DETECTED (Negative)
[2024-07-16 14:01] LABS: Influenza A QL RT-PCR Negative (Negative); Influenza B QL RT-PCR Negative (Negative); RSV RNA, RT-PCR Negative (Negative); SARS-CoV-2 RNA PCR Negative (Negative)
[2024-07-16 15:00] VITALS: O2SAT 100
[2024-07-16 15:09] VITALS: BP 137/82; PULSE 82; RESP 19; TEMP 36.8; O2SAT 98
== END 2024-07-16 15:11 | disposition home or self-care (01) ==
PROVIDERS: Emergency Provider Physician Assistant
DX: J06.9 Acute upper respiratory infection, unspecified (principal); F17.210 Nicotine dependence, cigarettes, uncomplicated; F17.290 Nicotine dependence, other tobacco product, uncomplicated; Z20.822 Contact with and (suspected) exposure to COVID-19
CPT/HCPCS: 87637; 87651; 99283

== ENCOUNTER 2024-07-20 06:47 | Emergency (ER) | payer BC, SELFPAY ==
--- NOTE | ~2024-07-20 | CT_ITS ---
EXAMINATION: CT soft tissue neck w con DATE: 07/20/2024 08:54 INDICATION: Neck pain and swelling. TECHNIQUE: Computed tomography (CT) of the neck was performed with 75 mL Omnipaque-350 intravenous co ntrast. Automated exposure control and iterative reconstruction technique were employed. The dose-katt gth product was 618.86 mGy-cm. COMPARISON: None FINDINGS: The orbits are normal. The paranasal sinuses are clear. There is mild left high internal ju gular chain lymphadenopathy. There is enlargement of left palatine tonsil. There is thickening of lef t aryepiglottic fold. The mastoid air cells are normal. There is extensive dental disease. There is m ild cervical spondylosis. IMPRESSION: 1. Enlarged left palatine tonsil and thickened left aryepiglottic fold, consistent with inflammation. No abscess. 2. Mild left high internal jugular chain lymphadenopathy, likely reactive. Reviewed, dictated and finalized at location A. IMPRESSION: 1. Enlarged left palatine tonsil and thickened left aryepiglottic fold, consist ent with inflammation. No abscess. 2. Mild left high internal jugular chain lymphadenopathy, likely reactive.
[2024-07-20 06:57] VITALS: BP 186/82; PULSE 100; RESP 18; O2SAT 98
[2024-07-20 07:01] VITALS: BP 186/82; PULSE 96; RESP 18; O2SAT 98
[2024-07-20] MEDS: KETOROLAC 30 MG/ML VIAL (*BKC) IV PUSH (08:02)
[2024-07-20] MEDS: SODIUM CHLORIDE 0.9% IV 1,000 ML 999 ML IV CONT (08:02)
[2024-07-20] MEDS: ONDANSETRON INJ 4 MG/2 ML VIAL IV PUSH (08:03)
[2024-07-20] MEDS: dexAMETHasone SOD PHOS INJ 10 MG/ML 1 ML VIAL IV PUSH (08:03)
[2024-07-20 08:04] LABS: Basophils Absolute Auto 0.1 K/mm3 (0.0-0.1); Basophils Percent Auto 0.9 % (0.2-1.2); Eosinophils Absolute Auto 0.3 K/mm3 (0-0.3); Eosinophils Percent Auto 4.3 % (0-4.4); Hemoglobin 14.1 g/dL (12.0-15.0); Immature Granulocyte Absolute 0.02 K/mm3 (0.00-0.031); Immature Granulocyte Percent A 0.3 % (0-0.5); Lymphocytes Absolute Auto 1.77 K/mm3 (0.9-3.2); Lymphocytes Percent Auto 25.2 % (18.3-44.2); Mean Corpuscular HGB Conc 34.4 g/dl (32-36); Mean Corpuscular Hemoglobin 31.3 pg (26-34); Mean Corpuscular Volume 90.9 fl (80-100); Mean Platelet Volume 9.2 fl (7.4-10.4); Monocytes Percent Auto 14.8 % (2.6-8.5); Neutrophils Absolute Auto 3.8 K/mm3 (1.3-6.7); Neutrophils Percent Auto 54.5 % (45.5-73.1); Platelet Count Result 215 k/mm3 (150-375); Red Blood Count 4.51 M/mm3 (4.2-5.4); Red Cell Distribution Width 13.3 % (11.5-14.5)
[2024-07-20 08:14] LABS: Add Urine Microscopic? YES; Appearance Urine Clear (Clear); Bacteria Urine Rare /hpf; Bilirubin Urine Negative (Negative); Blood Urine Negative (Negative); Color Urine Yellow (Yellow); Glucose Urine UA Negative (Negative); Ketones Urine Negative (Negative); Leukocyte Esterase Ur Negative LEU/UL (Negative); Nitrate Urine Negative (Negative); Non Pathogenic Casts 0-2; Protein Urine 1+ mg/dL (Negative); RBC Urine 0-2 /hpf (0-2); Squamous Epithelial Cell Urine Occasional /hpf (Few); Urobilinogen Urine 0.2 mg/dL (<2.0); WBC Urine 0-5 /hpf (0-3)
[2024-07-20 08:16] LABS: Lactic Acid Reflex 1.2 mmol/L (0.7-2.0)
[2024-07-20 08:17] LABS: Alanine Aminotransferase 20 U/L (6-35); Albumin Level 3.7 g/dL (3.5-5.1); Alkaline Phosphatase 107 U/L (38-126); Anion Gap 9 mmol/L (4-12); Aspartate Amino Transferase 33 U/L (14-36); Bilirubin,Total 0.5 mg/dL (0.2-1.3); Blood Urea Nitrogen 8 mg/dL (7-17); Calcium 9.4 mg/dL (8.4-10.2); Carbon Dioxide 24 mmol/L (22-30); Chloride 102 mmol/L (98-107); Estimated CRCL calculation 119 ml/min; Estimated Glomerular Filt Rate > 60; Glucose 100 mg/dL (65-110); Potassium 4.1 mmol/L (3.4-5.0); Sodium 135 mmol/L (137-145)
[2024-07-20 08:27] LABS: BEDSIDEPREGUCG Negative (Negative)
[2024-07-20 08:29] LABS: Strep Group A RT-PCR NOT DETECTED (Negative)
[2024-07-20 08:41] LABS: Influenza A QL RT-PCR Negative (Negative); Influenza B QL RT-PCR Negative (Negative); RSV RNA, RT-PCR Negative (Negative); SARS-CoV-2 RNA PCR Negative (Negative)
--- NOTE | 2024-07-20 10:02 | ED.GENADULT ---
HPI - General Adult General Chief complaint: Unspecified Stated complaint: face swollen, swollen lymp nodes Time Seen by Provider: 07/20/24 07:11 History of Present Illness HPI narrative: Patient is a 48-year-old female who presents emergency department with chief complaint of swollen lymph nodes and sore throat for the last 5 days. The patient reports that starting some nausea this morning reports that it hurts whenever she swallows and when she talks. Related Data Allergies Allergy/AdvReac Type Severity Reaction Status Date / Time latex Allergy Rash Verified 07/20/24 07:02 buspirone AdvReac Intermediate Headache Verified 07/20/24 07:02 bupropion AdvReac Mild Agitated Verified 07/20/24 07:02 cephalexin [From Keflex] AdvReac Mild Other Verified 07/20/24 07:02 promethazine AdvReac Mild Agitated Verified 07/20/24 07:02 Review of Systems Review of Systems: GENERAL: Well-appearing, well-nourished, and in no acute distress. HEAD: Normocephalic, atraumatic. EYES: PERRLA and EOMI. ENT: Nares clear, no rhinorrhea or epistaxis. Mucous membranes moist. Oropharynx has erythema no exudate NECK: Supple. Anterior cervical lymphadenopathy on the left CHEST: Clear to auscultation. No respiratory distress. HEART: Regular rate and rhythm. No murmur heard. Normal peripheral pulses. ABDOMEN: Soft, nontender, nondistended, normal active bowel sounds. EXTREMITIES: Normal range of motion. No edema. SKIN: Warm, dry, no rash. NEURO: No focal deficits. Alert and oriented x3. PSYCH: Normal mood and affect. [facility] Past Medical History Medical History (Updated 07/20/24 @ 10:06 by Dilan Bustos MD) Abscess of breast, right Anxiety Arthritis Encounter for surgical aftercare following surgery on the skin and subcutaneous tissue GERD (gastroesophageal reflux disease) H/O: HTN (hypertension) History of ovarian cyst Hx gestational diabetes IBS (irritable bowel syndrome) Surgical History Surgical History (Updated 12/31/23 @ 13:14 by Leeann Kumar, [facility]) History of breast surgery June 2019 - Ultrasound guided aspiration of right breast abscess. History of dilation and curettage History of incision and drainage Incision and drainage of complex left subareolar breast abscess 11/27/23 [facility] History of primary section x3 Family History Family History Father Diabetes mellitus Hypertension Mother Hypertension Social History Social History Social History: The patient is and she has 3 children. Currently under financial burden with low income and no insurance. She works as a [employer] at [employer]. She is a former smoker. She drinks socially. No marijuana or illicit drugs. She does not have any power traffic law attorney Code status full code Smoking packs per day: 0.2 Smoking cigarettes per day: 4.0 Years smoked: 28 Smoking pack-years: 5.60 Smoking status: Current every day smoker Tobacco type: cigarettes and e-cigarettes/vaping Second hand tobacco smoke exposure: Yes Additional smoking assessment comments: Patient still vapes Alcohol intake: current Drinks per week: 1 Alcohol use details: Occasional/social. Substance use: never Substance use type: does not use Other substance usage details: rare drinker Do You Feel Safe in your Home?: Yes Lack of Transportation: YES Lack of Food: Sometimes True Current Housing: I Have Housing Concerned About Future Housing: YES Difficulty Paying Gas/Electric Bills: YES Difficulty Paying for Meds: YES Currently Unemployed: No Education: Trade/Vocational Certificate Difficulty w/ Childcare or Family Care: No Living arrangements: with family Additional living arrangements comments: With her cousin who has Autism. Occupation/Education: occupation Additional occupation/education comments: [employer].
[2024-07-20 10:14] LABS: Procalcitonin 0.1 ng/mL
[2024-07-20 10:29] VITALS: BP 150/85; PULSE 89; RESP 16; TEMP 36.8; O2SAT 98
== END 2024-07-20 10:30 | disposition home or self-care (01) ==
PROVIDERS: Emergency Provider Emergency Medicine
DX: J36 Peritonsillar abscess (principal); R59.0 Localized enlarged lymph nodes; Z20.822 Contact with and (suspected) exposure to COVID-19; F17.210 Nicotine dependence, cigarettes, uncomplicated; F41.9 Anxiety disorder, unspecified; M19.90 Unspecified osteoarthritis, unspecified site; K21.9 Gastro-esophageal reflux disease without esophagitis; I10 Essential (primary) hypertension
CPT/HCPCS: 36415; 70491; 80053; 81001; 81025; 83605; 84145; 85025; 87637; 87651; 96361; 96374; 96375; 99284; J1100; J1885; J2405; J7030; Q9967

== ENCOUNTER 2025-02-15 12:47 | Emergency (ER) | payer BC, SELFPAY ==
--- NOTE | ~2025-02-15 | US_ITS ---
EXAMINATION: US venous doppler LE RT DATE: 02/15/2025 15:15 INDICATION: Edema and pain TECHNIQUE: Grayscale ultrasound images without and with compression and Doppler ultrasound images of the right lower extremity veins were obtained. COMPARISON: 10/08/2022. FINDINGS: The visualized portions of right common femoral vein, profunda (deep) femoral vein, femoral vein, pop liteal vein, peroneal veins, posterior tibial veins, and greater saphenous vein outflow are patent. IMPRESSION: 1. No deep venous thrombosis. Reviewed, dictated and finalized at location A.
[2025-02-15 12:51] VITALS: BP 121/91; PULSE 90; RESP 16; TEMP 36.7; O2SAT 98
--- OUTSIDE RECORDS SUMMARY | 2025-02-15 14:25 | XMS_ITS | Referral Summary ---
Author Organization [facility] [address] Address 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 Gender Identity Not on file Sexual Orientation Not on file Last Filed Vital Signs Vital Sign Reading Time Taken Comments Blood Pressure 139/81 02/28/2022 9:22 AM CDT Pulse 100 02/28/2022 9:22 AM CDT Temperature 36.9 C (98.5 F) 02/28/2022 9:22 AM CDT Respiratory Rate 18 02/28/2022 9:22 AM CDT Oxygen Saturation 98% 02/28/2022 9:22 AM CDT Inhaled Oxygen Concentration - - Weight 107 kg (236 lb) 02/28/2022 9:22 AM CDT Height 167.6 cm (5' 6 ) 02/28/2022 9:22 AM CDT Body Mass Index 38.09 02/28/2022 9:22 AM CDT Plan of Treatment Not on file Care Teams Anthropologist Physical Relationship Specialty Start Date End Date No, Physician PCP - General 02/28/22
--- OUTSIDE RECORDS SUMMARY | 2025-02-15 14:25 | XMS_ITS | Clinical Summary ---
Author Organization [facility] [place] [address] Address [address] [place] [id number] Care Team Providers Care Inside Plant Supervisor Name Role Phone No, Physician Primary Care Provider [phone] Allergies Active Allergy Reactions Criticality Noted Date Comments Buspirone Headache Low 10/07/2017 Headache Latex Hives,Rash Medium 02/28/2022 Promethazine Medications No known medications Active Problems No known active problems Social History Tobacco Use Types Packs/Day Years Used Date Smoking Tobacco: Never Assessed Comments Unknown Sex and Gender Information Value Date Recorded Sex Assigned at Not on file 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 Gender Identity Not on file Sexual Orientation Not on file Obstetrics History Last Filed Vital Signs Vital Sign Reading [...] 02/28/2022 9:22 AM CDT Plan of Treatment Health Maintenance Due Date Last Done Comments Breast Cancer Screening-Mammogram 1975 Cervical Cancer Screening 1975 Colon Cancer Screening-Colonoscopy 1975 Depression Screening 1975 Hepatitis C Screening 1975 Hepatitis B Screening 1993 Regular Well Visit/Exam 18-64 1993 Covid-19 Vaccine (2023-2 5 season) 2024 11/15/2021, 03/02/2021, 02/07/2021 Influenza Vaccine (Season Ended) 2025 09/30/2021, 09/15/2020 DTaP/Tdap/Td Vaccine (2 - Td or Tdap) 06/06/2026 06/06/2016 Pneumococcal vaccine <65 Aged Out No longer eligible based on patient's age to complete this topic Care Teams Inside Plant Supervisor Relationship Specialty Start Date End Date No, Physician PCP - General 02/28/22
--- NOTE | 2025-02-15 14:48 | ED.EXTPRO ---
HPI - Extremity Problem General Chief complaint: Extremity Problem,Nontraumatic <Tiana Hsieh PA-C - Last Filed: 02/15/25 19:01> Stated complaint: Right lower leg pain-Hx of DVT <Tiana Hsieh PA-C - Last Filed: 02/15/25 19:01> Time Seen by Provider: 02/15/25 14:48 <Tiana Hsieh PA-C - Last Filed: 02/15/25 19:01> Focused HPI: This is a 49 year old female that presents to the ER for right leg pain. Ongoing over the last couple of weeks. Reports history of DVT which concerned her and prompted her to be seen. Reports Aspirin has been helping. She is not on anticoagulation. Reports mild swelling. Pain is localized in the calf. GENERAL: Well-appearing, well-nourished, and in no acute distress. HEAD: Normocephalic, atraumatic. CHEST: No respiratory distress. HEART: Regular rate NEURO: ?Alert and oriented x3. Patient screened in triage and initial orders placed.? ?Additional care and disposition to be based upon?diagnostic testing and treatment. <Tiana Hsieh PA-C - Last Filed: 02/15/25 19:01> History of Present Illness HPI Narrative: Agree with HPI, however she reports anterior rordiguez discomfort to me on the right side <Vamshi Desai MD - Last Filed: 02/15/25 17:04> Related Data Allergies/Adverse reactions: Allergies Allergy/AdvReac Type Severity Reaction Status Date / Time latex Allergy Rash Verified 02/15/25 12:48 buspirone AdvReac Intermediate Headache Verified 02/15/25 12:48 bupropion AdvReac Mild Agitated Verified 02/15/25 12:48 cephalexin (From Keflex) AdvReac Mild Other Verified 02/15/25 12:48 promethazine AdvReac Mild Agitated Verified 02/15/25 12:48 <Tiana Hsieh PA-C - Last Filed: 02/15/25 19:01> Review of Systems Review of Systems: All systems reviewed & are unremarkable except as noted in HPI and below <Vamshi Desai MD - Last Filed: 02/15/25 17:04> Constitutional: Constitutional: Reports no additional constitutional complaints <Vamshi Desai MD - Last Filed: 02/15/25 17:04> Cardiovascular: Cardiovascular: Reports no additional cardiovascular complaints <Vamshi Desai MD - Last Filed: 02/15/25 17:04> Respiratory: Respiratory: Reports no additional respiratory complaints <Vamshi Desai MD - Last Filed: 02/15/25 17:04> Gastrointestinal: Gastrointestinal: Reports no additional gastrointestinal complaints <Vamshi Desai MD - Last Filed: 02/15/25 17:04> [facility] Past Medical History Medical History: Medical History (Updated 02/15/25 @ 19:01 by Tiana Hsieh PA-C) Encounter for surgical aftercare following surgery on the skin and subcutaneous tissue Hx gestational diabetes Abscess of breast, right Anxiety Arthritis History of ovarian cyst GERD (gastroesophageal reflux disease) IBS (irritable bowel syndrome) H/O: HTN (hypertension) <Tiana Hsieh PA-C - Last Filed: 02/15/25 19:01> Surgical History Surgical History: Surgical History (Updated 12/31/23 @ 13:14 by Leeann Kumar, CCT) History of incision and drainage Incision and drainage of complex left subareolar breast abscess 11/27/23 [facility] History of dilation and curettage History of primary section x3 History of breast surgery June 2019 - Ultrasound guided aspiration of right breast abscess. <Tiana Hsieh PA-C - Last Filed: 02/15/25 19:01> Family History Family History: Family History Father Diabetes mellitus Hypertension Mother Hypertension <Tiana Hsieh PA-C - Last Filed: 02/15/25 19:01> Social History Social History: Social History Social History: The patient is and she has 3 children. Currently under financial burden with low income and no insurance. 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 She is a former smoker. She drinks socially. No marijuana or illicit drugs. She does not have any power patent prosecution attorney Code status full code Smoking packs per day: 0.2 Smoking cigarettes per day: 4.0 Years smoked: 28 Smoking pack-years: 5.60 Smoking status: Current every day smoker Tobacco type: cigarettes and e-cigarettes/vaping Second hand tobacco smoke exposure: Yes Additional smoking assessment comments: Patient still vapes Alcohol intake: current Drinks per week: 1 Alcohol use details: Occasional/social. Substance use: never Substance use type: does not use Other substance usage details: rare drinker Do You Feel Safe in your Home?: Yes Lack of Transportation: YES Lack of Food: Sometimes True Current Housing: I Have Housing Concerned About Future Housing: YES Difficulty Paying Gas/Electric Bills: YES Difficulty Paying for Meds: YES Currently Unemployed: No Education: Trade/Vocational Certificate Difficulty w/ Childcare or Family Care: No Living arrangements: with family Additional living arrangements comments: With her cousin who has Autism. Occupation/Education: occupation Additional occupation/education comments: Hairstylist. Gender identity (if verbalized by the patient): Female Spiritual care concerns: No Agree to blood products: Yes <Tiana Hsieh PA-C - Last Filed: 02/15/25 19:01> Exam Narrative: GENERAL: Well-appearing, well-nourished, and in no acute distress. HEAD: Normocephalic, atraumatic. CHEST: Clear to auscultation. No respiratory distress. HEART: Regular rate and rhythm. Normal peripheral pulses. EXTREMITIES: Normal range of motion. No edema. Tender palpation over scar on the right rodriguez. SKIN: Warm, dry, no rash. NEURO: Alert and oriented x3. PSYCH: Normal mood and affect. <Vamshi Desai MD - Last Filed: 02/15/25 17:04> Course Course Emergency Course: No DVT. No cellulitis. suspect chronic pain from old scarring. Recommend compression dressings to help with discomfort. <Vamshi Desai MD - Last Filed: 02/15/25 17:04> Vital Signs Vital signs: Vital Signs Temperature 98.0 F 02/15/25 12:51 Pulse Rate 90 02/15/25 12:51 Respiratory Rate 16 02/15/25 12:51 Blood Pressure 121/91 H 02/15/25 12:51 Pulse Oximetry 98 02/15/25 12:51 Oxygen Delivery Room Air 02/15/25 12:51 Temperature 98.0 F 02/15/25 12:51 Pulse Rate 90 02/15/25 12:51 Respiratory Rate 16 02/15/25 12:51 Blood Pressure 121/91 H 02/15/25 12:51 Pulse Oximetry 98 02/15/25 12:51 Oxygen Delivery Room Air 02/15/25 12:51 <Tiana Hsieh PA-C - Last Filed: 02/15/25 19:01> Vital Signs Temperature 98.0 F 02/15/25 12:51 Pulse Rate 90 02/15/25 12:51 Respiratory Rate 16 02/15/25 12:51 Blood Pressure 121/91 H 02/15/25 12:51 Pulse Oximetry 98 02/15/25 12:51 Oxygen Delivery Room Air 02/15/25 12:51 Temperature 98.0 F 02/15/25 12:51 Pulse Rate 90 02/15/25 12:51 Respiratory Rate 16 02/15/25 12:51 Blood Pressure 121/91 H 02/15/25 12:51 Pulse Oximetry 98 02/15/25 12:51 Oxygen Delivery Room Air 02/15/25 12:51 <Vamshi Desai MD - Last Filed: 02/15/25 17:04> MDM - Extremity (Nontraumatic) Imaging Data Radiologist's impression: ITS Impressions Venous Doppler Study 02/15/25 15:28 IMPRESSION: 1. No deep venous thrombosis. <Vamshi Desai MD - Last Filed: 02/15/25 17:04> Critical Care Time Critical Care Time Critical Care Time: No <Tiana Hsieh PA-C - Last Filed: 02/15/25 19:01> Discharge Plan Discharge Clinical Impression: Anterior leg pain Qualifiers: Laterality: right Qualified Code(s): M79.604 - Pain in right leg <Tiana Hsieh PA-C - Last Filed: 02/15/25 19:01> Patient Disposition: Home <LULÚ Munoz Last Filed: 02/15/25 19:01> Condition: Stable <LULÚ Munoz Last Filed: 02/15/25 19:01> Additional Instructions: The pain is over an old scar in your leg. It is recommended he wear a compression sock to help with discomfort take Tylenol and ibuprofen. Return the ER if you have chest pain with shortness of breath, developed fever over 100.4? F, or you have additional concerns. <Tiana Hsieh PA-C - Last Filed: 02/15/25 19:01> Patient Language: Yi <Tiana Hsieh PA-C - Last Filed: 02/15/25 19:01> Prescriptions: No Action amoxicillin-pot clavulanate 875-125 mg tablet 1 tablet PO Q12H 7 Days Qty: 14 0RF amoxicillin-pot clavulanate 875-125 mg tablet 1 tablet PO Q12H 10 Days Qty: 20 0RF prednisone 20 mg tablet 40 mg PO DAILY 5 Days Qty: 10 0RF ondansetron 4 mg tablet,disintegrating 4 mg PO Q8H PRN (Reason: nausea and vomiting) Qty: 10 0RF <Tiana Hsieh PA-C - Last Filed: 02/15/25 19:01> Follow-up/Referrals: UNKNOWN,DOCTOR [Primary Care Provider] - 1 Week <Tiana Hsieh PA-C - Last Filed: 02/15/25 19:01>
--- NOTE | 2025-02-15 15:07 | PC.NURSE ---
Called for room placement, no answer
--- OUTSIDE RECORDS SUMMARY | 2025-02-15 17:53 | XMS_ITS | Referral Summary ---
Author Organization [facility] [address] Address [facility] [place] [address] Care Team Providers Care Scientific Investigator Name Role Phone No, Physician Primary Care Provider [phone] Allergies Active Allergy Reactions Criticality Noted Date Comments Buspirone Headache Low 10/07/2017 Headache Latex Hives,Rash Medium 02/28/2022 Promethazine Medications No known medications Active Problems No known active problems Social History Tobacco Use Types Packs/Day Years Used Date Smoking Tobacco: Never Assessed Comments Unknown Sex and Gender Information Value Date Recorded Sex Assigned at Not on file 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
--- OUTSIDE RECORDS SUMMARY | 2025-02-15 17:53 | XMS_ITS | Clinical Summary ---
Author Organization [facility] Address [address] [place] [id number] Care Team Providers Care Survey Superintendent Name Role Phone Marcus Munguia MD Primary Care Provider [phone] Social History Tobacco Use Types Packs/Day Years Used Date Smoking Tobacco: Never Assessed Comments Unknown Sex and Gender Information Value Date Recorded Sex Assigned at Not on file Legal Sex Female 8:12 PM CDT Gender Identity Not on file Sexual Orientation Not on file Plan of Treatment Health Maintenance Due Date Last Done Comments Cervical Cancer Screening Pa p Smear (Age 30 to 64) Every 3 Years 1975 Colorectal Cancer Screening Colonoscopy (10 Years) 1975 Annual Physical 1978 Hepatitis C 1993 DTaP, Tdap and Td Vaccines ( 1 - Tdap) 1994 Hepatitis B Vaccines (1 of 3 - 19+ 3-dose series) 1994 Cervical Cancer Screening Pa p with HPV Testing (Age 30 to 64) Every 5 Years 2005 Cervical Cancer Screening with HPV 2005 Mammogram Screening 2015 COVID-19 Vaccine (2023-2 5 season) 2024 Meningococcal B Vaccine Aged Out No l onger eligible based on patient's age to complete this topic Meningococcal Vaccine Aged Out No theresa amari eligible based on patient's age to complete this topic Pneumococcal Vaccine: Pediat rics (0 to 5 Years) and At-Risk Patients (6 to 64 Years) Aged Out No longer eligible b ased on patient's age to complete this topic RSV Immunizations Under 20 Months Aged Out No longer eligible based on patient's age to complete this topic Care Teams Survey Superintendent Relationship Specialty Start Date End Date Marcus Munguia MD [address] [place] [address] [place] [address] PCP - General 09/05/11
--- OUTSIDE RECORDS SUMMARY | 2025-02-15 17:53 | XMS_ITS | Clinical Summary ---
Author Organization [facility] [place] [place] [address] Address [address] [place] [id number] Care Team Providers Care Cost Coordinator Name Role Phone No, Physician Primary Care Provider [phone] Allergies Active Allergy Reactions Criticality Noted Date Comments Buspirone Headache Low 10/07/2017 Headache Latex Hives,Rash Medium 02/28/2022 Promethazine Medications No known medications Active Problems No known active problems Social History Tobacco Use Types Packs/Day Years Used Date Smoking Tobacco: Never Assessed Comments Unknown Sex and Gender Information Value Date Recorded Sex Assigned at Not on file Legal Sex Female 8:42 PM RN STARS Gender Identity Not on file Sexual Orientation [...] age to complete this topic Care Teams Cost Coordinator Relationship Specialty Start Date End Date No, Physician PCP - General 02/28/22
== END 2025-02-15 18:12 | disposition home or self-care (01) ==
PROVIDERS: Emergency Provider Emergency Medicine
DX: M79.604 Pain in right leg (principal); I10 Essential (primary) hypertension; M19.90 Unspecified osteoarthritis, unspecified site; K21.9 Gastro-esophageal reflux disease without esophagitis; K58.9 Irritable bowel syndrome, unspecified; Z86.718 Personal history of other venous thrombosis and embolism
CPT/HCPCS: 93971; 99284

== ENCOUNTER 2025-03-05 20:32 | Emergency (ER) | payer BC, SELFPAY ==
[2025-03-05 20:34] VITALS: BP 163/88; PULSE 95; RESP 16; TEMP 36.4; O2SAT 95
--- OUTSIDE RECORDS SUMMARY | 2025-03-05 20:35 | XMS_ITS | Clinical Summary ---
Author Organization [facility] Address [address] [place] [address] Care Team Providers Care Gas Turbine Powerplant Mechanic Helper Name Role Phone Marcus Munguia MD Primary Care Provider [phone] Social History Tobacco Use Types Packs/Day Years [...] 5 Years) and At-Risk Patients (6 to 49 Years) Aged Out No longer eligible b ased on patient's age to complete this topic RSV Immunizations Under 20 Months Aged Out No longer eligible based on patient's age to complete this topic Care Teams Gas Turbine Powerplant Mechanic Helper Relationship Specialty Start Date End Date Marcus Munguia MD [address] [place] [address] [place] [address] PCP - General 09/05/11
--- OUTSIDE RECORDS SUMMARY | 2025-03-05 20:35 | XMS_ITS | Clinical Summary ---
Author Organization [facility] [address] Address [address] [place] [phone] Care Team Providers Care Sand Polisher Name Role Phone No, Physician Primary Care Provider Allergies Active Allergy Reactions Criticality Noted Date Comments Buspirone Headache Low 10/07/2017 Headache Latex Hives,Rash Medium 02/28/2022 Promethazine Medications No known medications Active Problems No known active problems Social History Tobacco Use Types Packs/Day Years Used Date Smoking Tobacco: Never Assessed Comments Unknown Sex and Gender Information Value Date Recorded Sex Assigned at Not on file 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
--- OUTSIDE RECORDS SUMMARY | 2025-03-05 20:35 | XMS_ITS | Referral Summary ---
Author Organization [facility] [address] Address [facility] [place] [address] Care Team Providers Care Parcel Post Weigher Name Role Phone No, Physician Primary Care Provider [phone] Allergies Active Allergy Reactions Criticality Noted Date Comments Buspirone Headache Low 10/07/2017 Headache Latex Hives,Rash Medium 02/28/2022 Promethazine Medications No known medications Active Problems No known active problems Social History Tobacco Use Types Packs/Day Years Used Date Smoking Tobacco: Never Assessed Comments Unknown Sex and Gender Information Value Date Recorded Sex Assigned at Not on file 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
[2025-03-05 20:59] VITALS: RESP 18
--- NOTE | 2025-03-05 21:02 | ED.GENADULT ---
HPI - General Adult General Chief complaint: Unspecified Stated complaint: sciatic nerve pain/ htn Time Seen by Provider: 03/05/25 20:38 Source: patient Mode of arrival: ambulatory Limitations: no limitations History of Present Illness HPI narrative: This is a 49-year-old female who presents to the ED for chief complaint of low back pain radiating to the right leg for the past several weeks and worse today. Patient states that she noticed her blood pressure is high. States she was feeling very hot today and had sudden-onset pain shooting down the right leg. She states that walking makes the pain worse. Denies any trauma or injury to the area. Denies bowel or bladder dysfunction, fevers, chills, IV drug use, numbness, weakness. Related Data Allergies Allergy/AdvReac Type Severity Reaction Status Date / Time latex Allergy Rash Verified 03/05/25 20:33 buspirone AdvReac Intermediate Headache Verified 03/05/25 20:33 bupropion AdvReac Mild Agitated Verified 03/05/25 20:33 cephalexin (From Keflex) AdvReac Mild Other Verified 03/05/25 20:33 promethazine AdvReac Mild Agitated Verified 03/05/25 20:33 Review of Systems Review of Systems: All systems as dictated in HPI [facility] Past Medical History Medical History (Updated 03/05/25 @ 21:05 by Tay Dang PA-C) Encounter for surgical aftercare following surgery on the skin and subcutaneous tissue Hx gestational diabetes Abscess of breast, right Anxiety Arthritis History of ovarian cyst GERD (gastroesophageal reflux disease) IBS (irritable bowel syndrome) H/O: HTN (hypertension) Surgical History Surgical History (Updated 12/31/23 @ 13:14 by Leeann Kumar, EDEL) History of incision and drainage Incision and drainage of complex left subareolar breast abscess 11/27/23 [facility] History of dilation and curettage History of primary section x3 History of breast surgery June 2019 - Ultrasound guided aspiration of right breast abscess. Family History Family History Father Diabetes mellitus Hypertension Mother Hypertension Social History Social History Social History: The patient is and she has 3 children. Currently under financial burden with low income and no insurance. 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 She is a former smoker. She drinks socially. No marijuana or illicit drugs. She does not have any power tree girdler Code status full code Smoking packs per day: 0.2 Smoking cigarettes per day: 4.0 Years smoked: 28 Smoking pack-years: 5.60 Smoking status: Current every day smoker Tobacco type: cigarettes and e-cigarettes/vaping Second hand tobacco smoke exposure: Yes Additional smoking assessment comments: Patient still vapes Alcohol intake: current Drinks per week: 1 Alcohol use details: Occasional/social. Substance use: never Substance use type: does not use Other substance usage details: rare drinker Do You Feel Safe in your Home?: Yes Lack of Transportation: YES Lack of Food: Sometimes True Current Housing: I Have Housing Concerned About Future Housing: YES Difficulty Paying Gas/Electric Bills: YES Difficulty Paying for Meds: YES Currently Unemployed: No Education: Trade/Vocational Certificate Difficulty w/ Childcare or Family Care: No Living arrangements: with family Additional living arrangements comments: With her cousin who has Autism. Occupation/Education: occupation Additional occupation/education comments: [employer]. Gender identity (if verbalized by the patient): Female Spiritual care concerns: No Agree to blood products: Yes Exam Narrative: GENERAL: Well-appearing, well-nourished, and in no acute distress. HEAD: Normocephalic, atraumatic. EYES: PERRLA and EOMI. ENT: Nares clear, no rhinorrhea or epistaxis. Mucous membranes moist. Oropharynx without tonsillar hypertrophy exudate or other lesions. NECK: Supple. No adenopathy or masses. CHEST: No respiratory distress. Clear to auscultation. No wheezes rales or rhonchi HEART: Regular rate and rhythm. No murmur heard. Normal peripheral pulses. ABDOMEN: Soft, nontender, nondistended, normal active bowel sounds. MSK: Ambulatory without assistance. Normal range of motion grossly. Straight leg raise positive on the right, negative on the left. SKIN: Warm, dry, no rash. NEURO: Alert and oriented x4. No focal deficits. No saddle anesthesia. 5/5 strength and sensation throughout the extremities grossly PSYCH: Normal mood and affect. Course Vital Signs Vital signs: Vital Signs Temperature 97.6 F 04/25/25 20:34 Pulse Rate 95 03/05/25 20:34 Respiratory Rate 16 03/05/25 20:34 Blood Pressure 163/88 H 03/05/25 20:34 Pulse Oximetry 95 03/05/25 20:34 Oxygen Delivery Room Air 03/05/25 20:34 Temperature 97.6 F 03/05/25 20:34 Pulse Rate 95 03/05/25 20:34 Respiratory Rate 18 03/05/25 20:59 Blood Pressure 163/88 H 03/05/25 20:34 Pulse Oximetry 95 03/05/25 20:34 Oxygen Delivery Room Air 03/05/25 20:34 Medical Decision Making MDM Narrative Medical decision making narrative: This is a 49-year-old female who presents to the ED for chief complaint of low back and right leg pain ongoing for the past several weeks and worse today. Vitals show elevated blood pressure but otherwise normal. Exam does show straight leg raise positive on the right. No red flag back signs or symptoms on exam today. Neurologically fully intact. Presentation is most likely consistent with sciatica based on history and exam. Patient will likely need MRI for this issue, discussed the utility of x-rays versus CT versus MRI with the patient. I do not feel that it would be worthwhile for a CT scan today with no injury. Shared decision making regarding disposition. She feels comfortable with pain control here with IM Toradol and then Rx for Medrol Dosepak, cyclobenzaprine for home. Encouraged close follow-up with PCP and evaluation of this issue. Patient will be discharged in stable condition. Supportive measures discussed and return precautions given. Patient is understanding and agreeable with plan for discharge with PCP follow-up. Vital Signs Vital Signs: Vital Signs Temperature 97.6 F 03/05/25 20:34 Pulse Rate 95 03/05/25 20:34 Respiratory Rate 16 03/05/25 20:34 Blood Pressure 163/88 H 03/05/25 20:34 Pulse Oximetry 95 03/05/25 20:34 Oxygen Delivery Room Air 03/05/25 20:34 Temperature 97.6 F 03/05/25 20:34 Pulse Rate 95 03/05/25 20:34 Respiratory Rate 18 03/05/25 20:59 Blood Pressure 163/88 H 03/05/25 20:34 Pulse Oximetry 95 03/05/25 20:34 Oxygen Delivery Room Air 03/05/25 20:34 Discharge Plan Discharge Clinical Impression: Sciatic nerve pain, HTN (hypertension) Patient Disposition: Home Condition: Stable Instructions: Antibiotic Form, Sciatica (ED) Additional Instructions: Your exam today is consistent nerve pain. Please use ibuprofen 600 mg every 6 hours as well as Tylenol 500 mg every 6 hours for baseline pain control. Medrol Dosepak muscle relaxer prescribed as well. Follow-up closely with your PCP on this issue as you will likely need an MRI for definitive evaluation. If you have any new or worsening symptoms please return to the ER for further evaluation. Patient Language: Turkmen Prescriptions: New methylprednisolone [Medrol (Arsalan)] 4 mg tablets,dose pack See Rx Instructions .ROUTE .COMPLEX Qty: 21 0RF Rx Instructions: for 6 days cyclobenzaprine 10 mg tablet 10 mg PO HS PRN (Reason: muscle spasm) Qty: 10 0RF No Action amoxicillin-pot clavulanate 875-125 mg tablet 1 tablet PO Q12H 7 Days Qty: 14 0RF amoxicillin-pot clavulanate 875-125 mg tablet 1 tablet PO Q12H 10 Days Qty: 20 0RF prednisone 20 mg tablet 40 mg PO DAILY 5 Days Qty: 10 0RF ondansetron 4 mg tablet,disintegrating 4 mg PO Q8H PRN (Reason: nausea and vomiting) Qty: 10 0RF Follow-up/Referrals: UNKNOWN,DOCTOR [Primary Care Provider] - Time of Disposition: 21:05
[2025-03-05] MEDS: CYCLOBENZAPRINE HCL 10 MG TABLET PO (21:39)
[2025-03-05] MEDS: KETOROLAC 30 MG/ML VIAL (*BKC) IM (21:39)
[2025-03-05 22:15] VITALS: BP 158/88; PULSE 92; RESP 19; O2SAT 98
[2025-03-05 22:17] VITALS: BP 158/88; PULSE 92; RESP 19; O2SAT 98
== END 2025-03-05 22:21 | disposition home or self-care (01) ==
PROVIDERS: Emergency Provider Physician Assistant
DX: M54.41 Lumbago with sciatica, right side (principal); I10 Essential (primary) hypertension; M19.90 Unspecified osteoarthritis, unspecified site; K21.9 Gastro-esophageal reflux disease without esophagitis; K58.9 Irritable bowel syndrome, unspecified; F17.290 Nicotine dependence, other tobacco product, uncomplicated
CPT/HCPCS: 96372; 99283; A9270; J1885

== ENCOUNTER 2025-04-27 19:41 | Emergency (ER) | payer SELFPAY ==
--- OUTSIDE RECORDS SUMMARY | 2025-04-27 19:42 | XMS_ITS | Clinical Summary ---
Author Organization [facility] Address [address] [place] [address] Care Team Providers Care Metal Cut Off Saw Operator Name Role Phone Marcus Munguia MD Primary Care Provider [phone] Social History Tobacco Use Types Packs/Day Years [...] age to complete this topic Care Teams Metal Cut Off Saw Operator Relationship Specialty Start Date End Date Marcus Munguia MD [address] [place] [address] [place] [address] PCP - General 09/05/11
[2025-04-27 19:49] VITALS: BP 152/97; PULSE 86; RESP 18; TEMP 36.2; O2SAT 96
--- OUTSIDE RECORDS SUMMARY | 2025-04-27 20:07 | XMS_ITS | Referral Summary ---
Author Organization [facility] [address] Address [facility] [place] [address] Care Team Providers Care Pretzel Twister Name Role Phone No, Physician Primary Care Provider [phone] Allergies Active Allergy Reactions Criticality Noted Date Comments Buspirone Headache Low 10/07/2017 Headache Latex Hives,Rash Medium 02/28/2022 Promethazine Medications No known medications Active Problems No known active problems Social History Tobacco Use Types Packs/Day Years Used Date Smoking Tobacco: Never Assessed Comments Unknown Sex and Gender Information Value Date Recorded Sex Assigned at Not on file 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
--- OUTSIDE RECORDS SUMMARY | 2025-04-27 20:07 | XMS_ITS | Clinical Summary ---
Author Organization [facility] [address] Address [address] [place] [id number] Care Team Providers Care Forging Operator Name Role Phone No, Physician Primary Care Provider [phone] Allergies Active Allergy Reactions Criticality Noted Date Comments Buspirone Headache Low 10/07/2017 Headache Latex Hives,Rash Medium 02/28/2022 Promethazine Medications No known medications Active Problems No known active problems Social History Tobacco Use Types Packs/Day Years Used Date Smoking Tobacco: Never Assessed Comments Unknown Sex and Gender Information Value Date Recorded Sex Assigned at Not on file 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
[2025-04-27 20:32] LABS: Basophils Absolute Auto 0.1 K/mm3 (0.0-0.1); Basophils Percent Auto 0.8 % (0.2-1.2); Eosinophils Absolute Auto 0.4 K/mm3 (0-0.3); Eosinophils Percent Auto 3.2 % (0-4.4); Hematocrit 39.8 % (37.0-47.0); Hemoglobin 13.3 g/dL (12.0-15.0); Immature Granulocyte Absolute 0.04 K/mm3 (0.00-0.031); Immature Granulocyte Percent A 0.4 % (0-0.5); Lymphocytes Absolute Auto 3.87 K/mm3 (0.9-3.2); Lymphocytes Percent Auto 35.7 % (18.3-44.2); Mean Corpuscular HGB Conc 33.4 g/dl (32-36); Mean Corpuscular Hemoglobin 30.2 pg (26-34); Mean Corpuscular Volume 90.5 fl (80-100); Mean Platelet Volume 9.7 fl (7.4-10.4); Monocytes Percent Auto 9.1 % (2.6-8.5); Neutrophils Absolute Auto 5.5 K/mm3 (1.3-6.7); Neutrophils Percent Auto 50.8 % (45.5-73.1); Platelet Count Result 264 k/mm3 (150-375); Red Cell Distribution Width 12.9 % (11.5-14.5); White Blood Count 10.8 K/mm3 (4.5-10.0)
[2025-04-27 20:41] LABS: Anion Gap 8 mmol/L (4-12); Blood Urea Nitrogen 14 mg/dL (7-17); Calcium 9.7 mg/dL (8.4-10.2); Carbon Dioxide 21 mmol/L (22-30); Chloride 106 mmol/L (98-107); Estimated CRCL calculation 94 ml/min; Estimated Glomerular Filt Rate > 60; Glucose 96 mg/dL (65-110); Potassium 4.1 mmol/L (3.4-5.0); Sodium 135 mmol/L (137-145)
--- NOTE | 2025-04-27 20:51 | ED.WOUNDLAC ---
HPI - Wound/Laceration General Chief Complaint: Wound/Laceration Stated Complaint: right foot wound Time Seen by Provider: 04/27/25 19:48 Source: patient Mode of arrival: ambulatory Limitations: no limitations History of Present Illness HPI narrative: 49-year-old otherwise healthy here with complaints of a small blister on her right foot. Patient states that she has been walking recently and noticed a small blister this evening. She denies any fever or chills she also states that it was draining earlier. Onset (ago): unknown Location: other (Right foot) Related Data Allergies Allergy/AdvReac Type Severity Reaction Status Date / Time latex Allergy Rash Verified 04/27/25 19:53 buspirone AdvReac Intermediate Headache Verified 04/27/25 19:53 bupropion AdvReac Mild Agitated Verified 04/27/25 19:53 cephalexin (From Keflex) AdvReac Mild Other Verified 04/27/25 19:53 promethazine AdvReac Mild Agitated Verified 04/27/25 19:53 Review of Systems Review of Systems: All systems reviewed & are unremarkable except as noted in HPI and below Constitutional: Constitutional: Reports no additional constitutional complaints Eyes: Eyes: Reports no additional eye complaints ENT: Reports system reviewed and no additional complaints, except as documented Cardiovascular: Cardiovascular: Reports no additional cardiovascular complaints Respiratory: Respiratory: Reports no additional respiratory complaints Gastrointestinal: Gastrointestinal: Reports no additional gastrointestinal complaints PMFSH Past Medical History Medical History Encounter for surgical aftercare following surgery on the skin and subcutaneous tissue Hx gestational diabetes Abscess of breast, right Anxiety Arthritis History of ovarian cyst GERD (gastroesophageal reflux disease) IBS (irritable bowel syndrome) H/O: HTN (hypertension) Surgical History Surgical History History of incision and drainage Incision and drainage of complex left subareolar breast abscess 11/27/23 [facility] History of dilation and curettage History of primary section x3 History of breast surgery June 2019 - Ultrasound guided aspiration of right breast abscess. Family History Family History Father Diabetes mellitus Hypertension Mother Hypertension Social History Social History Social History: The patient is and she has 3 children. Currently under financial burden with low income and no insurance. 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 She is a former smoker. She drinks socially. No marijuana or illicit drugs. She does not have any power mergers and acquisitions attorney Code status full code Smoking packs per day: 0.2 Smoking cigarettes per day: 4.0 Years smoked: 28 Smoking pack-years: 5.60 Smoking status: Current every day smoker Tobacco type: cigarettes and e-cigarettes/vaping Second hand tobacco smoke exposure: Yes Additional smoking assessment comments: Patient still vapes Alcohol intake: current Drinks per week: 1 Alcohol use details: Occasional/social. Substance use: never Substance use type: does not use Other substance usage details: rare drinker Do You Feel Safe in your Home?: Yes Lack of Transportation: YES Lack of Food: Sometimes True Current Housing: I Have Housing Concerned About Future Housing: YES Difficulty Paying Gas/Electric Bills: YES Difficulty Paying for Meds: YES Currently Unemployed: No Education: Trade/Vocational Certificate Difficulty w/ Childcare or Family Care: No Living arrangements: with family Additional living arrangements comments: With her cousin who has Autism. Occupation/Education: occupation Additional occupation/education comments: [employer]. Gender identity (if verbalized by the patient): Female Spiritual care concerns: No Agree to blood products: Yes Exam Narrative: GENERAL: Well-appearing, well-nourished, and in no acute distress. HEAD: Normocephalic, atraumatic. EYES: PERRLA and EOMI. ENT: Nares clear, no rhinorrhea or epistaxis. Mucous membranes moist. NECK: Supple. CHEST: Clear to auscultation. No respiratory distress. HEART: Regular rate and rhythm. No murmur heard. Normal peripheral pulses. EXTREMITIES: Normal range of motion. No edema. Examination of the right foot has a small callus on the plantar aspect with no drainage no redness SKIN: Warm, dry, no rash. NEURO: No focal deficits. Alert and oriented x3. PSYCH: Normal mood and affect. Course Course Emergency Course: Informed patient about the lab work within advised proper shoe padding. If infected follow-up with the primary doctor Vital Signs Vital signs: Vital Signs Temperature 36.2 C L 04/27/25 19:49 Pulse Rate 86 06/17/25 19:49 Respiratory Rate 18 04/27/25 19:49 Blood Pressure 152/97 H 04/27/25 19:49 Pulse Oximetry 96 04/27/25 19:49 Oxygen Delivery Room Air 04/27/25 19:49 Temperature 36.2 C L 04/27/25 19:49 Pulse Rate 86 04/27/25 19:49 Respiratory Rate 18 04/27/25 19:49 Blood Pressure 152/97 H 04/27/25 19:49 Pulse Oximetry 96 04/27/25 19:49 Oxygen Delivery Room Air 04/27/25 19:49 MDM - Wound/Laceration Lab Data 04/27/25 20:20 04/27/25 20:20 Labs: Lab Results 04/27/25 Range/Units 20:20 WBC 10.8 H (4.5-10.0) K/mm3 RBC 4.40 (4.2-5.4) M/mm3 Hgb 13.3 (12.0-15.0) g/dL Hct 39.8 (37.0-47.0) % MCV 90.5 (80-100) fl MCH 30.2 (26-34) pg MCHC 33.4 (32-36) g/dl RDW 12.9 (11.5-14.5) % Plt Count 264 (150-375) k/mm3 MPV 9.7 (7.4-10.4) fl Immature Gran % (Auto) 0.4 (0-0.5) % Neut % (Auto) 50.8 (45.5-73.1) % Lymph % (Auto) 35.7 (18.3-44.2) % [place] % (Auto) 9.1 H (2.6-8.5) % Eos % (Auto) 3.2 (0-4.4) % Baso % (Auto) 0.8 (0.2-1.2) % Lymph # (Auto) 3.87 H (0.9-3.2) K/mm3 [place] # (Auto) 1.0 H (0.1-0.6) K/mm3 Eos # (Auto) 0.4 H (0-0.3) K/mm3 Baso # (Auto) 0.1 (0.0-0.1) K/mm3 Abs Immat Gran (auto) 0.04 H (0.00-0.031) K/mm3 Absolute Neuts (auto) 5.5 (1.3-6.7) K/mm3 Absolute Nucleated RBC 0.000 (0.0-0.012) K/mm3 Nucleated RBC % 0.0 (0.0-0.2) % Sodium 135 L (137-145) mmol/L Potassium 4.1 (3.4-5.0) mmol/L Chloride 106 (98-107) mmol/L Carbon Dioxide 21 L (22-30) mmol/L Anion Gap 8 (4-12) mmol/L BUN 14 D (7-17) mg/dL Creatinine 0.76 (0.7-1.0) mg/dL Estim Creat Clear Calc 94 ml/min Estimated GFR > 60 (59 - ) Glucose 96 (65-110) mg/dL Calcium 9.7 (8.4-10.2) mg/dL Discharge Plan Discharge Clinical Impression: Blister of skin due to prolonged pressure Patient Disposition: Home Condition: Stable Instructions: Pressure Injury (ED) Patient Language: Norwegian Prescriptions: No Action amoxicillin-pot clavulanate 875-125 mg tablet 1 tablet PO Q12H 7 Days Qty: 14 0RF methylprednisolone [Medrol (Arsalan)] 4 mg tablets,dose pack See Rx Instructions .ROUTE .COMPLEX Qty: 21 0RF Rx Instructions: for 6 days cyclobenzaprine 10 mg tablet 10 mg PO HS PRN (Reason: muscle spasm) Qty: 10 0RF amoxicillin-pot clavulanate 875-125 mg tablet 1 tablet PO Q12H 10 Days Qty: 20 0RF prednisone 20 mg tablet 40 mg PO DAILY 5 Days Qty: 10 0RF ondansetron 4 mg tablet,disintegrating 4 mg PO Q8H PRN (Reason: nausea and vomiting) Qty: 10 0RF Follow-up/Referrals: Myron Friend MD [Physician] - UNKNOWN,DOCTOR [Primary Care Provider] - Time of Disposition: 20:52
== END 2025-04-27 21:17 | disposition home or self-care (01) ==
PROVIDERS: Emergency Provider Family Medicine
DX: S90.821A Blister (nonthermal), right foot, initial encounter (principal); F17.290 Nicotine dependence, other tobacco product, uncomplicated; X58.XXXA Exposure to other specified factors, initial encounter
CPT/HCPCS: 36415; 80048; 85025; 99283